=== PATIENT | male | born 1985 | race Caucasian/White ===

== ENCOUNTER 2018-02-01 02:43 | Emergency (ER) | payer MEDICAID ==
--- NOTE | 2018-02-01 02:55 | ER Report ---
History and Physical Time Seen By MD: 02:55 Hx. of Stated Complaint: PT DRANK ALCOHOL AND THEN TOOK SEROQUEL. HE DOES NOT FEEL RIGHT HPI/ROS CHIEF COMPLAINT: dizzy, not feeling right HISTORY OF PRESENT ILLNESS: This is a 32 year old male. He says he does not feel right. Dizziness and grogginess. He takes 200mg of Seroquel at bedtime. Drank a couple glasses of champagne tonight and took his regular dose. Was not feeling sleepy, so after another hour, he took a second Seroquel. He has never done this prior to tonight. Now very dizzy and groggy. Never felt this way with the medicine previously. This is a first pill from a new prescription and he thinks that someone may have tampered with the prescription, although no one else has had it since picking it up. He denies chest pain or shortness of breath. No headache. He is very tired. No musculoskeletal pain. No nausea or vomiting. Allergies: Coded Allergies: No Known Drug Allergies (Unverified , 02/01/18) Home Meds Reported Medications Quetiapine Fumarate (SEROQUEL) 200 Mg Tablet, 200 MG PO HS 02/01/18 Reviewed Nurses Notes: Yes Hx Alcohol Use: Yes Constitutional Vital Sign - Last 24 Hours 02/01/18 02/01/18 02:48 04:00 Temp 98.0 Pulse 113 93 Resp 16 B/P (MAP) 132/92 106/77 (87) Pulse Ox 94 96 O2 Delivery Room Air Room Air Intake and Output 01/31/18 01/31/18 02/01/18 15:00 23:00 07:00 Intake Total 1000 ml Balance 1000 ml Physical Exam General Appearance: The patient is alert, anxious. Eyes: Pupils equal and round no injection. ENT: Normal oral mucosa. Moist mucous membranes. Normal posterior oropharynx. Tympanic membranes are normal. Neck: Neck is supple and non tender. Respiratory: Chest is non tender, lungs are clear to auscultation. Cardiac: regular rate and rhythm Gastrointestinal: Abdomen is soft and non tender, no masses, bowel sounds normal. Musculoskeletal: Extremities have full range of motion. Neuro: Alert and oriented x3. No focal deficits. Skin: No rashes or lesions. DIFFERENTIAL DIAGNOSIS: After history and physical exam differential diagnosis was considered for dizziness and grogginess after taking an extra Seroquel dose along with some alcohol tonight. Medical Decision Making Data Points Result Diagram: 02/01/185 02/01/185 Laboratory Hematology Test 02/01/18 02:48 02/01/18 03:15 Urine Color Yellow Urine Clarity Clear Urine pH 5.0 pH (4.8-9.5) Urine Specific Means 1.026 Urine Protein Negative mg/dL (NEGATIVE) Urine Glucose (UA) Negative mg/dL (NEGATIVE) Urine Ketones Trace mg/dL (NEGATIVE) Urine Blood Negative (NEGATIVE) Urine Nitrite Negative (NEGATIVE) Urine Bilirubin Negative (NEGATIVE) Urine Urobilinogen 2.0 mg/dL (0.2-1.9) Urine Leukocyte Esterase Negative (NEGATIVE) Urine RBC 1 /HPF (0-2/HPF) Urine WBC 5 /HPF (0-5/HPF) Urine Squamous Epithelial Cells Few /LPF (</=FEW) Urine Bacteria Few /HPF (NONE-FEW) Urine Hyaline Casts Few /LPF (NONE-FEW) Urine Mucus Few /HPF (NONE-FEW) Urine Opiates Screen Negative Urine Barbiturates Screen Negative Ur Tricyclic Antidepressants Screen Negative Urine Phencyclidine Screen Negative Urine Amphetamines Screen Negative Urine Benzodiazepines Screen Negative Urine Cocaine Screen Negative Urine Cannabinoids Screen Negative Red Blood Count 6.08 M/uL (4.00-5.60) Mean Corpuscular Volume 89.9 fL (80.0-96.0) Mean Corpuscular Hemoglobin 31.2 pg (26.0-33.0) Mean Corpuscular Hemoglobin Concent 34.7 g/dL (32.0-36.0) Red Cell Distribution Width 12.9 % (11.5-14.5) Mean Platelet Volume 10.7 fL (7.2-11.1) Neutrophils (%) (Auto) 65.0 % (39.4-72.5) Lymphocytes (%) (Auto) 21.1 % (17.6-49.6) Monocytes (%) (Auto) 6.4 % (4.1-12.4) Eosinophils (%) (Auto) 7.0 % (0.4-6.7) Basophils (%) (Auto) 0.5 % (0.3-1.4) Nucleated RBC Relative Count (auto) 0.0 /100WBC Neutrophils # (Auto) 6.0 K/uL (2.0-7.4) Lymphocytes # (Auto) 1.9 K/uL (1.3-3.6) Monocytes # (Auto) 0.6 K/uL (0.3-1.0) Eosinophils # (Auto) 0.6 K/uL (0.0-0.5) Basophils # (Auto) 0.1 K/uL (0.0-0.1) Nucleated RBC Absolute Count (auto) 0.00 K/uL Sodium Level 141 mmol/L (137-145) Potassium Level 3.4 mmol/L (3.5-5.0) Chloride Level 105 mmol/L (98-107) Carbon Dioxide Level 23 mmol/L (22-30) Blood Urea Nitrogen 10 mg/dl (9-21) Creatinine 0.80 mg/dl (0.66-1.25) Glomerular Filtration Rate Calc > 60.0 Random Glucose 126 mg/dl (75-110) Calcium Level 9.5 mg/dl (8.4-10.2) Total Bilirubin 0.5 mg/dl (0.2-1.3) Aspartate Amino Transf (AST/SGOT) 16 U/L (0-35) Alanine Aminotransferase (ALT/SGPT) 48 U/L (0-56) Alkaline Phosphatase 67 U/L (0-126) Total Protein 7.0 g/dl (6.3-8.2) Albumin 4.2 g/dl (3.5-5.0) Salicylates Level < 10 mg/L Salicylate Last Dose Date unk Acetaminophen Level < 10 ug/ml Serum Alcohol < 10 mg/dl Chemistry Test 02/01/18 02:48 02/01/18 03:15 Urine Color Yellow Urine Clarity Clear Urine pH 5.0 pH (4.8-9.5) Urine Specific Means 1.026 Urine Protein Negative mg/dL (NEGATIVE) Urine Glucose (UA) Negative mg/dL (NEGATIVE) Urine Ketones Trace mg/dL (NEGATIVE) Urine Blood Negative (NEGATIVE) Urine Nitrite Negative (NEGATIVE) Urine Bilirubin Negative (NEGATIVE) Urine Urobilinogen 2.0 mg/dL (0.2-1.9) Urine Leukocyte Esterase Negative (NEGATIVE) Urine RBC 1 /HPF (0-2/HPF) Urine WBC 5 /HPF (0-5/HPF) Urine Squamous Epithelial Cells Few /LPF (</=FEW) Urine Bacteria Few /HPF (NONE-FEW) Urine Hyaline Casts Few /LPF (NONE-FEW) Urine Mucus Few /HPF (NONE-FEW) Urine Opiates Screen Negative Urine Barbiturates Screen Negative Ur Tricyclic Antidepressants Screen Negative Urine Phencyclidine Screen Negative Urine Amphetamines Screen Negative Urine Benzodiazepines Screen Negative Urine Cocaine Screen Negative Urine Cannabinoids Screen Negative White Blood Count 9.2 k/uL (4.5-11.0) Red Blood Count 6.08 M/uL (4.00-5.60) Hemoglobin 19.0 g/dL (14.0-18.0) Hematocrit 54.6 % (42.0-52.0) Mean Corpuscular Volume 89.9 fL (80.0-96.0) Mean Corpuscular Hemoglobin 31.2 pg (26.0-33.0) Mean Corpuscular Hemoglobin Concent 34.7 g/dL (32.0-36.0) Red Cell Distribution Width 12.9 % (11.5-14.5) Platelet Count 170 K/uL (150-450) Mean Platelet Volume 10.7 fL (7.2-11.1) Neutrophils (%) (Auto) 65.0 % (39.4-72.5) Lymphocytes (%) (Auto) 21.1 % (17.6-49.6) Monocytes (%) (Auto) 6.4 % (4.1-12.4) Eosinophils (%) (Auto) 7.0 % (0.4-6.7) Basophils (%) (Auto) 0.5 % (0.3-1.4) Nucleated RBC Relative Count (auto) 0.0 /100WBC Neutrophils # (Auto) 6.0 K/uL (2.0-7.4) Lymphocytes # (Auto) 1.9 K/uL (1.3-3.6) Monocytes # (Auto) 0.6 K/uL (0.3-1.0) Eosinophils # (Auto) 0.6 K/uL (0.0-0.5) Basophils # (Auto) 0.1 K/uL (0.0-0.1) Nucleated RBC Absolute Count (auto) 0.00 K/uL Glomerular Filtration Rate Calc > 60.0 Calcium Level 9.5 mg/dl (8.4-10.2) Total Bilirubin 0.5 mg/dl (0.2-1.3) Aspartate Amino Transf (AST/SGOT) 16 U/L (0-35) Alanine Aminotransferase (ALT/SGPT) 48 U/L (0-56) Alkaline Phosphatase 67 U/L (0-126) Total Protein 7.0 g/dl (6.3-8.2) Albumin 4.2 g/dl (3.5-5.0) Salicylates Level < 10 mg/L Salicylate Last Dose Date unk Acetaminophen Level < 10 ug/ml Serum Alcohol < 10 mg/dl Toxicology Test 02/01/18 02:48 02/01/18 03:15 Urine Opiates Screen Negative Urine Barbiturates Screen Negative Ur Tricyclic Antidepressants Screen Negative Urine Phencyclidine Screen Negative Urine Amphetamines Screen Negative Urine Benzodiazepines Screen Negative Urine Cocaine Screen Negative Urine Cannabinoids Screen Negative Salicylates Level < 10 mg/L Salicylate Last Dose Date unk Acetaminophen Level < 10 ug/ml Serum Alcohol < 10 mg/dl Urinalysis Test 02/01/18 02:48 Urine Color Yellow Urine Clarity Clear Urine pH 5.0 pH (4.8-9.5) Urine Specific Means 1.026 Urine Protein Negative mg/dL (NEGATIVE) Urine Glucose (UA) Negative mg/dL (NEGATIVE) Urine Ketones Trace mg/dL (NEGATIVE) Urine Blood Negative (NEGATIVE) Urine Nitrite Negative (NEGATIVE) Urine Bilirubin Negative (NEGATIVE) Urine Urobilinogen 2.0 mg/dL (0.2-1.9) Urine Leukocyte Esterase Negative (NEGATIVE) Urine RBC 1 /HPF (0-2/HPF) Urine WBC 5 /HPF (0-5/HPF) Urine Squamous Epithelial Cells Few /LPF (</=FEW) Urine Bacteria Few /HPF (NONE-FEW) Urine Hyaline Casts Few /LPF (NONE-FEW) Urine Mucus Few /HPF (NONE-FEW) ED Course/Re-evaluation Clinical Indication for ER IV: Hydration, IV Access ED Course Labs are unremarkable. Reviewed this with the patient. See instructions below. Decision to Disposition Date: Feb 01, 2018 Decision to Disposition Time: 04:03 Depart Departure Latest Vital Signs Vital Signs Date Time Temp Pulse Resp B/P (MAP) Pulse Ox O2 Delivery O2 Flow Rate FiO2 02/01/18 04:00 93 106/77 (87) 96 Room Air 02/01/18 02:48 98.0 16 Impression: Primary Impression: Dizziness Condition: Improved Disposition: HOME OR SELF-CARE Patient Instructions: Dizziness (ED) Additional Instructions: We think the feeling you had of dizziness and not feeling right was a combination of factors including the alcohol combined by a larger dose of Seroquel than what you normally take. If you are worried about the Seroquel being tampered with, you can talk to the pharmacy or possibly with law enforcement. At this time, labs are normal and no other substances are found in your system b ased on the limited labs we have available. We recommend returning home and resting today and increasing fluid intake. ANNA CARDOZA MD Feb 01, 2018 02:55
[2018-02-01] MEDS ORDERED: QUET200T29 PO (03:02)
[2018-02-01 03:24] LABS: PLATELET COUNT, AUTOMATED 170 K/uL (150-450)
[2018-02-01] MEDS ORDERED: NS(*) 0.9% 1000 ML BAG 1,000 ML IV ONE (03:24)
[2018-02-01 04:00] VITALS: BP 106/77
== END 2018-02-01 04:10 | disposition home or self-care (01) ==
LOC: ER 03:00
DX: R42 Dizziness and giddiness (principal)
CPT/HCPCS: 80305; 81001; 85025; 96360; 99283; G0480; J7030; 80320; 80329; 82040; 82247; 82310; 82374; 82435; 82565; 82947; 84075; 84132; 84155; 84295; 84450; 84460; 84520

== ENCOUNTER 2018-02-05 08:29 | Emergency (ER) | payer MEDICAID ==
[~2018-02-05 08:29] MED LIST changes: -CHOL10005 PO; -MULT-1379 PO; -NICO-219 BC; -OMEG1CAP35 PO; -QUET100T29 PO
--- NOTE | 2018-02-05 08:44 | ER Report ---
History and Physical Time Seen By MD: 08:39 Hx. of Stated Complaint: PATIENT REPORTS THAT HE BELIEVES SOMEONE IS POISONING HIS CIGARETTES HPI/ROS CHIEF COMPLAINT: Palpitations, shortness of breath, paranoia HISTORY OF PRESENT ILLNESS: Patient is a 32-year-old male who is brought in by ambulance for evaluation of palpitations and shortness of breath. Patient is concerned that his cigarettes may have been laced with a "poison". When asked why he thinks that he states that he was in [place] a few days ago and was sary ing his cigarettes with other people and so he became concerned that his symptoms might be related to some type of poison on the cigarettes. Patient admits to having paranoid thoughts from time to time he's also paranoid with regard to his medication use. He states that "he is very careful to take his medications at the same time and the correct dose". Patient also made the comment to nursing staff that "if someone was trying to poison cigarettes of cyanide the FBI would be aware that correct" REVIEW OF SYSTEMS: Constitutional: No fever, no chills. Eyes: No discharge. ENT: No sore throat. Cardiovascular: Chest pain and palpitations Respiratory: Shortness of breath Gastrointestinal: No abdominal pain, no vomiting. Genitourinary: No hematuria. Musculoskeletal: No back pain. Skin: No rashes. Neurological: No headache. Psychiatric: No suicidal or homicidal ideation Allergies: Coded Allergies: No Known Drug Allergies (Unverified , 02/06/18) Home Meds Reported Medications Quetiapine Fumarate (SEROQUEL) 200 Mg Tablet, 200 MG PO HS 02/01/18 Past Medical/Surgical History Anxiety Hx Alcohol Use: Yes Constitutional Vital Sign - Last 24 Hours 02/05/18 02/05/18 08:33 09:53 Temp 98.0 Pulse 100 80 Resp 24 20 B/P (MAP) 135/93 109/80 (90) Pulse Ox 92 91 O2 Delivery Room Air Room Air Physical Exam General/Constitutional: Patient is awake, alert, nontoxic and in no acute respiratory distress. Head: Normocephalic and atraumatic. Eyes: Conjunctival clear, Pupils are normal size and equal and reactive to light. Sclera are clear and anicteric. Ears:External canals are clear. Tympanic membranes are clear with normal landma rks and light reflex. Nares: No rhinorrhea or bleeding. Turbinates are pink and moist. Oropharyngeal: Mucous membranes are moist. There is no pharyngeal erythema or exudate. There are no palatal petechiae. Uvula is midline and symmetrical. Neck: Supple, no adenopathy. Cardiovascular: Heart is regular rate and rhythm without audible murmurs, rubs or gallops. Pulmonary: Lungs are clear to auscultation bilaterally. There are no wheezes, rales, or rhonchi. Chest rise is symmetrical Abdomen: Soft, nontender, no guarding or peritoneal signs. Extremities: No gross deformities, No peripheral cyanosis. Able to move all 4 extremities. Neuro: Alert and oriented X3, Cranial nerves 2 thru 12 are intact and symmetrical. Patient has normal gait. Skin: No rashes, skin is warm dry and well perfused. Psych: Patient admits to feeling anxious and feeling somewhat paranoid. He is concerned that somebody may have "laced his cigarettes with a poison". He denies hearing any auditory hallucinations. He denies visual hallucinations. He denies suicidal thoughts or homicidal thoughts. Medical Decision Making Data Points Result Diagram: 02/05/18 0857 02/05/18 0857 Laboratory Hematology Test 02/05/18 08:57 Red Blood Count 5.98 M/uL (4.00-5.60) Mean Corpuscular Volume 90.2 fL (80.0-96.0) Mean Corpuscular Hemoglobin 31.1 pg (26.0-33.0) Mean Corpuscular Hemoglobin Concent 34.5 g/dL (32.0-36.0) Red Cell Distribution Width 13.1 % (11.5-14.5) Mean Platelet Volume 11.3 fL (7.2-11.1) Neutrophils (%) (Auto) 76.2 % (39.4-72.5) Lymphocytes (%) (Auto) 14.9 % (17.6-49.6) Monocytes (%) (Auto) 4.1 % (4.1-12.4) Eosinophils (%) (Auto) 4.1 % (0.4-6.7) Basophils (%) (Auto) 0.7 % (0.3-1.4) Nucleated RBC Relative Count (auto) 0.1 /100WBC Neutrophils # (Auto) 9.0 K/uL (2.0-7.4) Lymphocytes # (Auto) 1.8 K/uL (1.3-3.6) Monocytes # (Auto) 0.5 K/uL (0.3-1.0) Eosinophils # (Auto) 0.5 K/uL (0.0-0.5) Basophils # (Auto) 0.1 K/uL (0.0-0.1) Nucleated RBC Absolute Count (auto) 0.01 K/uL Sodium Level 141 mmol/L (137-145) Potassium Level 3.2 mmol/L (3.5-5.0) Chloride Level 107 mmol/L (98-107) Carbon Dioxide Level 26 mmol/L (22-30) Blood Urea Nitrogen 10 mg/dl (9-21) Creatinine 1.00 mg/dl (0.66-1.25) Glomerular Filtration Rate Calc > 60.0 Random Glucose 149 mg/dl (75-110) Calcium Level 9.3 mg/dl (8.4-10.2) Total Bilirubin 0.6 mg/dl (0.2-1.3) Aspartate Amino Transf (AST/SGOT) 23 U/L (0-35) Alanine Aminotransferase (ALT/SGPT) 39 U/L (0-56) Alkaline Phosphatase 64 U/L (0-126) Troponin I < 0.012 ng/ml Total Protein 7.2 g/dl (6.3-8.2) Albumin 4.1 g/dl (3.5-5.0) Chemistry Test 02/05/18 08:57 White Blood Count 11.8 k/uL (4.5-11.0) Red Blood Count 5.98 M/uL (4.00-5.60) Hemoglobin 18.6 g/dL (14.0-18.0) Hematocrit 53.9 % (42.0-52.0) Mean Corpuscular Volume 90.2 fL (80.0-96.0) Mean Corpuscular Hemoglobin 31.1 pg (26.0-33.0) Mean Corpuscular Hemoglobin Concent 34.5 g/dL (32.0-36.0) Red Cell Distribution Width 13.1 % (11.5-14.5) Platelet Count 178 K/uL (150-450) Mean Platelet Volume 11.3 fL (7.2-11.1) Neutrophils (%) (Auto) 76.2 % (39.4-72.5) Lymphocytes (%) (Auto) 14.9 % (17.6-49.6) Monocytes (%) (Auto) 4.1 % (4.1-12.4) Eosinophils (%) (Auto) 4.1 % (0.4-6.7) Basophils (%) (Auto) 0.7 % (0.3-1.4) Nucleated RBC Relative Count (auto) 0.1 /100WBC Neutrophils # (Auto) 9.0 K/uL (2.0-7.4) Lymphocytes # (Auto) 1.8 K/uL (1.3-3.6) Monocytes # (Auto) 0.5 K/uL (0.3-1.0) Eosinophils # (Auto) 0.5 K/uL (0.0-0.5) Basophils # (Auto) 0.1 K/uL (0.0-0.1) Nucleated RBC Absolute Count (auto) 0.01 K/uL Glomerular Filtration Rate Calc > 60.0 Calcium Level 9.3 mg/dl (8.4-10.2) Total Bilirubin 0.6 mg/dl (0.2-1.3) Aspartate Amino Transf (AST/SGOT) 23 U/L (0-35) Alanine Aminotransferase (ALT/SGPT) 39 U/L (0-56) Alkaline Phosphatase 64 U/L (0-126) Troponin I < 0.012 ng/ml Total Protein 7.2 g/dl (6.3-8.2) Albumin 4.1 g/dl (3.5-5.0) EKG/Imaging EKG Interpretation 02/05/2018 9:39:00 am EKG shows normal sinus rhythm with ventricular rate of [address] segment or T-wave abnormalities noted Monitor Interpretation: Normal Sinus Rhythm Imaging FACILITY: [facility] PATIENT NAME: Izaiah Fishman : 1985 MR: [id number] V: [id number] EXAM DATE: [id number] ORDERING PHYSICIAN: LIBORIO GARCIA TECHNOLOGIST: Location: [facility] - [place] Patient: Izaiah Fishman : 1985 Visit/Account:[id number] Date of Sevice: 02/05/2018 2 VIEWS CHEST INDICATION: Short of breath. Difficulty catching breath. COMPARISON: None available FINDINGS: The lungs are clear. No effusion or pneumothorax is seen. Heart size and mediastinal contours are normal. Colonic gas noted within the upper abdomen most pronounced just below the left hemidiaphragm. IMPRESSION: 1. No radiographic evidence of active disease. Report Dictated By: Tamir Motta at 02/05/2018 9:26 AM Report E-Signed By: Tamir Motta at 02/05/2018 9:28 AM WSN:[id number] ED Course/Re-evaluation ED Course 02/05/2018 9:07:24 am and at this time will be cardiac workup including blood work EKG and chest x-ray. The patient does seem to have some paranoid thoughts. The patient is not suicidal or homicidal and does not appear to be an immediate danger to himself or the Public large. Decision to Disposition Date: Feb 05, 2018 Decision to Disposition Time: 09:40 Depart Departure Latest Vital Signs Vital Signs Date Time Temp Pulse Resp B/P (MAP) Pulse Ox O2 Delivery O2 Flow Rate FiO2 02/05/18 09:53 80 20 109/80 (90) 91 Room Air 02/05/18 08:33 98.0 Impression: Primary Impression: Non-cardiac chest pain Additional Impression: Anxiety Condition: Improved Disposition: HOME OR SELF-CARE Patient Instructions: Anxiety (ED), Noncardiac Chest Pain (ED) Problem Qualifiers LIBORIO GARCIA MD Feb 05, 2018 08:44
[2018-02-05] MEDS ORDERED: LORazepam 2 MG/ML VIAL IVP ONE (08:45)
--- NOTE | 2018-02-05 08:54 | EKG ---
FACILITY: [facility] - [place] PATIENT NAME: ELAINA WAGNER : [id number] MR: [id number] V: [id number] EXAM DATE: ORDERING PHYSICIAN: LIBORIO GARCIA TECHNOLOGIST: BERTIN Miranda Reason : CP Blood Pressure : / mmHG Vent. Rate : 092 BPM Atrial Rate : 092 BPM P-R Int : 154 ms QRS Dur : 104 ms QT Int : 364 ms P-R-T Axes : 067 035 036 degrees QTc Int : 450 ms Normal sinus rhythm Normal ECG No previous ECGs available Confirmed by CHIQUIS GUPTA ([id number]) on 02/05/2018 9:36:07 PM Referred By: RADHA Confirmed By:CHIQUIS GUPTA
[2018-02-05 09:09] LABS: PLATELET COUNT, AUTOMATED 178 K/uL (150-450)
--- NOTE | 2018-02-05 09:32 | RADIOLOGY IMAGING REPORT ---
FACILITY: [facility] - [place] PATIENT NAME: Izaiah Fishman : 1985 MR: [id number] V: [id number] EXAM DATE: ORDERING PHYSICIAN: LIBORIO GARCIA TECHNOLOGIST: Location: [facility] - [place] Patient: Izaiah Fishman : 1985 Visit/Account:[id number] Date of Sevice: 02/05/2018 2 VIEWS CHEST INDICATION: Short of breath. Difficulty catching breath. COMPARISON: None available FINDINGS: The lungs are clear. No effusion or pneumothorax is seen. Heart size and mediastinal contours are nor mal. Colonic gas noted within the upper abdomen most pronounced just below the left hemidiaphragm. IMPRESSION: 1. No radiographic evidence of active disease. Report Dictated By: Tamir Motta at 02/05/2018 9:26 AM Report E-Signed By: Tamir Motta at 02/05/2018 9:28 AM WSN:[id number]
[2018-02-05 09:53] VITALS: BP 109/80
== END 2018-02-05 09:44 | disposition home or self-care (01) ==
LOC: ER 09:33
DX: R07.89 Other chest pain (principal); F41.9 Anxiety disorder, unspecified; F17.210 Nicotine dependence, cigarettes, uncomplicated
CPT/HCPCS: 71046; 84484; 85025; 93005; 96374; 99283; J2060; 82040; 82247; 82310; 82374; 82435; 82565; 82947; 84075; 84132; 84155; 84295; 84450; 84460; 84520

== ENCOUNTER → 2018-02-05 | Outpatient (CLI) | payer MEDICAID ==
[~2018-02-05] MED LIST: CHOL10005 PO; MULT-1379 PO; NICO-219 BC; OMEG1CAP35 PO; QUET100T29 PO; QUET200T29 PO
== END ==
LOC: AMB 08:13
PROVIDERS: ATTEND Nurse Practitioner
DX: F22 Delusional disorders (principal); F41.1 Generalized anxiety disorder; Z72.0 Tobacco use
CPT/HCPCS: A0425; A0427

== ENCOUNTER 2018-02-06 07:10 | Emergency (ER) | payer MEDICAID ==
[~2018-02-06 07:10] MED LIST changes: -CHOL10005 PO; -LORA-1458 PO; -MULT-1379 PO; -NICO-219 BC; -OMEG1CAP35 PO; -QUET100T29 PO
--- NOTE | 2018-02-06 07:53 | EKG ---
FACILITY: [facility] PATIENT NAME: ELAINA WAGNER : [id number] MR: [id number] V: [id number] EXAM DATE: ORDERING PHYSICIAN: LIBORIO GARCIA TECHNOLOGIST: BERTIN Miranda Reason : PALPITATIONS Blood Pressure : / mmHG Vent. Rate : 078 BPM Atrial Rate : 078 BPM P-R Int : 150 ms QRS Dur : 110 ms QT Int : 382 ms P-R-T Axes : 054 028 031 degrees QTc Int : 435 ms Sinus rhythm Nonspecific interventricular conduction delay No acute appearing findings Confirmed by ORALIA LAND ([id number]) on 02/06/2018 3:52:53 PM Referred By: RADHA Confirmed By:ORALIA LAND
[2018-02-06 08:00] VITALS: BP 139/108
--- NOTE | 2018-02-06 08:05 | ER Report ---
History and Physical Time Seen By MD: 08:04 Hx. of Stated Complaint: pt states he has psychosis. States has not taken his seroquel as he cannot sleep with it . Appears rather anxious. HPI/ROS CHIEF COMPLAINT: Anxiety, difficulty sleeping, history of psychosis HISTORY OF PRESENT ILLNESS: Patient was seen approximately 24 hours ago for similar type complaints. Was diagnosed with noncardiac chest pain after workup in the emergency department. Patient did improve on dose of Ativan while in the emergency department. Patient was discharged home. He had no suicidal or homicidal ideation at that time. Apparently he's been having increasing anxiety so he returns to emergency department for reevaluation. Patient does state this time he's been having fleeting thoughts of suicide no active plan. Mostly says she's having difficulty sleeping at night unable to get to sleep or maintain sleep. Patient does live by himself. REVIEW OF SYSTEMS: Constitutional: No fever, no chills. Eyes: No discharge. ENT: No sore throat. Cardiovascular: No chest pain, no palpitations. Respiratory: No cough, no shortness of breath. Gastrointestinal: No abdominal pain, no vomiting. Genitourinary: No hematuria. Musculoskeletal: No back pain. Skin: No rashes. Neurological: No headache. Psychiatric: Anxiety, fleeting thoughts of suicide Allergies: Coded Allergies: No Known Drug Allergies (Unverified , 02/06/18) Home Meds Reported Medications Quetiapine Fumarate (SEROQUEL) 200 Mg Tablet, 200 MG PO HS 02/01/18 Past Medical/Surgical History History of psychosis and anxiety Hx Substance Use Disorder: No Hx Alcohol Use: Yes Constitutional Vital Sign - Last 24 Hours 02/06/18 02/06/18 02/06/18 02/06/18 07:10 07:10 07:30 07:40 Temp 98.4 Pulse 80 87 83 Resp 20 B/P (MAP) 129/96 (107) 129/96 123/89 (100) Pulse Ox 97 94 95 O2 Delivery Room Air 02/06/18 02/06/18 08:00 08:10 Pulse 81 B/P (MAP) 139/108 (118) Pulse Ox 92 Physical Exam General/Constitutional: Patient is awake, alert, nontoxic and in no acute respiratory distress. Head: Normocephalic and atraumatic. Eyes: Conjunctival clear, Pupils are equal and reactive to light. Extraocular muscles are intact and symmetrical. Sclera are clear and anicteric. Ears:External canals are clear. Tympanic membranes are clear with normal landmarks and light reflex. Nares: No rhinorrhea or bleeding. Turbinates are pink and moist. Oropharyngeal: Mucous membranes are moist. There is no pharyngeal erythema or exudate. There are no palatal petechiae. Uvula is midline and symmetrical. Neck: Supple, no adenopathy. Cardiovascular: Heart is regular rate and rhythm without audible murmurs, rubs or gallops. Pulmonary: Lungs are clear to auscultation bilaterally. There are no wheezes, rales, or rhonchi. Chest rise is symmetrical Abdomen: Soft, nontender, no guarding or peritoneal signs. Extremities: No gross deformities, No peripheral cyanosis. Able to move all 4 extremities. Neuro: Alert and oriented X3, Cranial nerves 2 thru 12 are intact and symmetrical. Patient has normal gait. Skin: No rashes, skin is warm dry and well perfused. Psychiatric: Fleeting thoughts of suicide, very poor eye contact flat affect. Patient is cooperative. Thought process seems logical and goal-directed. Patient does not seem to be responding to any internal stimuli. Medical Decision Making Data Points Result Diagram: 02/06/18 0802 02/06/18 0802 Laboratory Hematology Test 02/06/18 08:02 Red Blood Count 5.65 M/uL (4.00-5.60) Mean Corpuscular Volume 90.0 fL (80.0-96.0) Mean Corpuscular Hemoglobin 31.2 pg (26.0-33.0) Mean Corpuscular Hemoglobin Concent 34.7 g/dL (32.0-36.0) Red Cell Distribution Width 13.1 % (11.5-14.5) Mean Platelet Volume 10.4 fL (7.2-11.1) Neutrophils (%) (Auto) 66.6 % (39.4-72.5) Lymphocytes (%) (Auto) 17.5 % (17.6-49.6) Monocytes (%) (Auto) 8.0 % (4.1-12.4) Eosinophils (%) (Auto) 7.4 % (0.4-6.7) Basophils (%) (Auto) 0.5 % (0.3-1.4) Nucleated RBC Relative Count (auto) 0.1 /100WBC Neutrophils # (Auto) 5.5 K/uL (2.0-7.4) Lymphocytes # (Auto) 1.4 K/uL (1.3-3.6) Monocytes # (Auto) 0.7 K/uL (0.3-1.0) Eosinophils # (Auto) 0.6 K/uL (0.0-0.5) Basophils # (Auto) 0.0 K/uL (0.0-0.1) Nucleated RBC Absolute Count (auto) 0.00 K/uL Sodium Level 140 mmol/L (137-145) Potassium Level 3.8 mmol/L (3.5-5.0) Chloride Level 106 mmol/L (98-107) Carbon Dioxide Level 25 mmol/L (22-30) Blood Urea Nitrogen 9 mg/dl (9-21) Creatinine 0.80 mg/dl (0.66-1.25) Glomerular Filtration Rate Calc > 60.0 Random Glucose 102 mg/dl (75-110) Calcium Level 9.2 mg/dl (8.4-10.2) Magnesium Level 1.9 mg/dl (1.7-2.2) Total Bilirubin 0.7 mg/dl (0.2-1.3) Aspartate Amino Transf (AST/SGOT) 18 U/L (0-35) Alanine Aminotransferase (ALT/SGPT) 39 U/L (0-56) Alkaline Phosphatase 59 U/L (0-126) Troponin I < 0.012 ng/ml Total Protein 7.1 g/dl (6.3-8.2) Albumin 4.0 g/dl (3.5-5.0) Salicylates Level < 10 mg/L Salicylate Last Dose Date unk Acetaminophen Level < 10 ug/ml Serum Alcohol < 10 mg/dl Chemistry Test 02/06/18 08:02 White Blood Count 8.3 k/uL (4.5-11.0) Red Blood Count 5.65 M/uL (4.00-5.60) Hemoglobin 17.7 g/dL (14.0-18.0) Hematocrit 50.9 % (42.0-52.0) Mean Corpuscular Volume 90.0 fL (80.0-96.0) Mean Corpuscular Hemoglobin 31.2 pg (26.0-33.0) Mean Corpuscular Hemoglobin Concent 34.7 g/dL (32.0-36.0) Red Cell Distribution Width 13.1 % (11.5-14.5) Platelet Count 169 K/uL (150-450) Mean Platelet Volume 10.4 fL (7.2-11.1) Neutrophils (%) (Auto) 66.6 % (39.4-72.5) Lymphocytes (%) (Auto) 17.5 % (17.6-49.6) Monocytes (%) (Auto) 8.0 % (4.1-12.4) Eosinophils (%) (Auto) 7.4 % (0.4-6.7) Basophils (%) (Auto) 0.5 % (0.3-1.4) Nucleated RBC Relative Count (auto) 0.1 /100WBC Neutrophils # (Auto) 5.5 K/uL (2.0-7.4) Lymphocytes # (Auto) 1.4 K/uL (1.3-3.6) Monocytes # (Auto) 0.7 K/uL (0.3-1.0) Eosinophils # (Auto) 0.6 K/uL (0.0-0.5) Basophils # (Auto) 0.0 K/uL (0.0-0.1) Nucleated RBC Absolute Count (auto) 0.00 K/uL Glomerular Filtration Rate Calc > 60.0 Calcium Level 9.2 mg/dl (8.4-10.2) Magnesium Level 1.9 mg/dl (1.7-2.2) Total Bilirubin 0.7 mg/dl (0.2-1.3) Aspartate Amino Transf (AST/SGOT) 18 U/L (0-35) Alanine Aminotransferase (ALT/SGPT) 39 U/L (0-56) Alkaline Phosphatase 59 U/L (0-126) Troponin I < 0.012 ng/ml Total Protein 7.1 g/dl (6.3-8.2) Albumin 4.0 g/dl (3.5-5.0) Salicylates Level < 10 mg/L Salicylate Last Dose Date unk Acetaminophen Level < 10 ug/ml Serum Alcohol < 10 mg/dl Toxicology Test 02/06/18 08:02 Salicylates Level < 10 mg/L Salicylate Last Dose Date unk Acetaminophen Level < 10 ug/ml Serum Alcohol < 10 mg/dl EKG/Imaging EKG Interpretation EKG shows normal sinus rhythm with a ventricular beat of 78 bpm unchanged from the EKG approximately 24 hours ago. ED Course/Re-evaluation ED Course Plan at this time will be medical screening evaluation. I will also have behavioral medicine come down to an evaluation. 02/06/2018 8:43:17 am patient seen by behavioral medicine at [facility]. Patient does have an appointment with his psychiatrist today in [facility]. He was given resources in the [facility]. Patient felt safe for disposition to discharge home at this time. Patient given further additional con tact information if he requires further assistance. Decision to Disposition Date: Feb 06, 2018 Decision to Disposition Time: 08:43 Depart Departure Latest Vital Signs Vital Signs Date Time Temp Pulse Resp B/P (MAP) Pulse Ox O2 Delivery O2 Flow Rate FiO2 02/06/18 08:10 81 92 02/06/18 08:00 139/108 (118) 02/06/18 07:10 98.4 20 Room Air Impression: Primary Impression: Insomnia Condition: Improved Disposition: HOME OR SELF-CARE Patient Instructions: Insomnia (ED) Additional Instructions: Keep your appointment today with your psychiatrist in [place] to get your medications adjusted. Return to the emergency department if you have thoughts of self-harm or hurting others. Problem Qualifiers Primary Impression: Insomnia Insomnia type: unspecified Qualified Codes: G47.00 - Insomnia, unspecified LIBORIO GARCIA MD Feb 06, 2018 08:05
[2018-02-06 08:15] LABS: PLATELET COUNT, AUTOMATED 169 K/uL (150-450)
== END 2018-02-06 09:15 | disposition home or self-care (01) ==
LOC: ER 08:05
DX: G47.00 Insomnia, unspecified (principal); R45.851 Suicidal ideations; R00.2 Palpitations
CPT/HCPCS: 36415; 83735; 84443; 84484; 85025; 93005; 99283; G0480; 80320; 80329; 82040; 82247; 82310; 82374; 82435; 82565; 82947; 84075; 84132; 84155; 84295; 84450; 84460; 84520

== ENCOUNTER 2018-02-06 21:56 | Emergency (ER) | payer MEDICAID ==
--- NOTE | 2018-02-06 22:00 | ER Report ---
History and Physical Time Seen By MD: 22:00 HPI/SAMARA CHIEF COMPLAINT: Not feeling right HISTORY OF PRESENT ILLNESS: 32-year-old male with sounds like a history of schizophrenia. On Seroquel. He's been on medication for 3 years. Over the last 2 days. He is coming to the ER for 3 visits. This is his 3rd visit. The previous 2 he was complaining of erratic heartbeat and had some paranoid behavior. He states that he stop smoking today because he thought somebody put something in his cigarettes. Last weekend he was seen here after having a couple glasses of champagne and taking 2 doses of his Seroquel. He denies current suicidal ideation, however he admits occasional fleeting thoughts of suicidal ideation but has no actual plan. Patient has a previous behavioral health admission down in [place]. He lives alone so he starts to ruminate on his thoughts and becomes quite anxious about being home alone. He denies current drug, alcohol use. Patient hasn't slept in 3 days. REVIEW OF SYSTEMS: Respiratory: No cough, no dyspnea. Cardiovascular: No chest pain, no palpitations. Gastrointestinal: No vomiting, no abdominal pain. Musculoskeletal: No back pain. Allergies: Coded Allergies: No Known Drug Allergies (Unverified , 02/06/18) Home Meds Reported Medications Quetiapine Fumarate (SEROQUEL) 200 Mg Tablet, 200 MG PO HS 02/01/18 Reviewed Nurses Notes: Yes Old Medical Records Reviewed: Yes Hx Substance Use Disorder: No Hx Alcohol Use: Yes Constitutional Vital Sign - Last 24 Hours 02/06/18 02/06/18 02/06/18 02/06/18 21:59 21:59 22:30 22:41 Temp 98.1 Pulse 87 Resp 20 B/P (MAP) 112/76 (88) 112/76 119/74 (89) Pulse Ox 97 82 O2 Delivery Room Air 02/06/18 02/06/18 02/06/18 02/07/18 23:26 23:41 23:46 00:01 Pulse 76 73 78 Pulse Ox 93 93 93 92 02/07/18 00:16 Pulse 81 Pulse Ox 93 Physical Exam General Appearance: The patient is alert, has no immediate need for airway protection and no current signs of toxicity., Restless, agitated, hypervigilant. HEENT: Pupils equal and round no injection. Oropharynx without redness or exudate, mucous. Membranes are moist Respiratory: Chest is non tender, lungs are clear to auscultation. Cardiac: regular rate and rhythm Gastrointestinal: Abdomen is soft and non tender, no masses, bowel sounds normal. Musculoskeletal: Neck: Neck is supple and non tender. No thyromegaly, no lymphadenopathy Extremities have full range of motion and are non tender. Skin: No rashes or lesions. DIFFERENTIAL DIAGNOSIS: After history and physical exam differential diagnosis was considered for depression including functional and major depression, situational depression, anxiety, schizophrenia, bipolar disorder, medication side effect, drugs and alcohol abuse. Medical Decision Making Data Points Result Diagram: 02/06/18219902/06/182199 Laboratory Hematology Test 02/06/18 22:00 02/06/18 23:02 Red Blood Count 6.36 M/uL (4.00-5.60) Mean Corpuscular Volume 89.1 fL (80.0-96.0) Mean Corpuscular Hemoglobin 30.5 pg (26.0-33.0) Mean Corpuscular Hemoglobin Concent 34.3 g/dL (32.0-36.0) Red Cell Distribution Width 13.3 % (11.5-14.5) Mean Platelet Volume 11.1 fL (7.2-11.1) Neutrophils (%) (Auto) 57.0 % (39.4-72.5) Lymphocytes (%) (Auto) 28.2 % (17.6-49.6) Monocytes (%) (Auto) 7.9 % (4.1-12.4) Eosinophils (%) (Auto) 6.2 % (0.4-6.7) Basophils (%) (Auto) 0.7 % (0.3-1.4) Nucleated RBC Relative Count (auto) 0.4 /100WBC Neutrophils # (Auto) 7.7 K/uL (2.0-7.4) Lymphocytes # (Auto) 3.8 K/uL (1.3-3.6) Monocytes # (Auto) 1.1 K/uL (0.3-1.0) Eosinophils # (Auto) 0.8 K/uL (0.0-0.5) Basophils # (Auto) 0.1 K/uL (0.0-0.1) Nucleated RBC Absolute Count (auto) 0.05 K/uL Sodium Level 140 mmol/L (137-145) Potassium Level 3.2 mmol/L (3.5-5.0) Chloride Level 104 mmol/L (98-107) Carbon Dioxide Level 26 mmol/L (22-30) Blood Urea Nitrogen 11 mg/dl (9-21) Creatinine 1.00 mg/dl (0.66-1.25) Glomerular Filtration Rate Calc > 60.0 Random Glucose 104 mg/dl (75-110) Calcium Level 9.7 mg/dl (8.4-10.2) Magnesium Level 2.1 mg/dl (1.7-2.2) Total Bilirubin 0.6 mg/dl (0.2-1.3) Aspartate Amino Transf (AST/SGOT) 35 U/L (0-35) Alanine Aminotransferase (ALT/SGPT) 43 U/L (0-56) Alkaline Phosphatase 70 U/L (0-126) Total Protein 8.4 g/dl (6.3-8.2) Albumin 4.7 g/dl (3.5-5.0) Salicylates Level < 10 mg/L Salicylate Last Dose Date unk Acetaminophen Level < 10 ug/ml Serum Alcohol < 10 mg/dl Urine Color Yellow Urine Clarity Slightly-cloudy Urine pH 6.0 pH (4.8-9.5) Urine Specific [place] 1.026 Urine Protein 30 mg/dL (NEGATIVE) Urine Glucose (UA) Negative mg/dL (NEGATIVE) Urine Ketones Negative mg/dL (NEGATIVE) Urine Blood Negative (NEGATIVE) Urine Nitrite Negative (NEGATIVE) Urine Bilirubin Negative (NEGATIVE) Urine Urobilinogen Negative mg/dL (0.2-1.9) Urine Leukocyte Esterase Negative (NEGATIVE) Urine RBC 4 /HPF (0-2/HPF) Urine WBC 2 /HPF (0-5/HPF) Urine Squamous Epithelial Cells Few /LPF (</=FEW) Urine Amorphous Crystals Few /HPF Urine Bacteria Negative /HPF (NONE-FEW) Urine Mucus Few /HPF (NONE-FEW) Urine Opiates Screen Negative Urine Barbiturates Screen Negative Ur Tricyclic Antidepressants Screen Negative Urine Phencyclidine Screen Negative Urine Amphetamines Screen Negative Urine Benzodiazepines Screen Negative Urine Cocaine Screen Negative Urine Cannabinoids Screen Negative Chemistry Test 02/06/18 22:00 02/06/18 23:02 White Blood Count 13.6 k/uL (4.5-11.0) Red Blood Count 6.36 M/uL (4.00-5.60) Hemoglobin 19.4 g/dL (14.0-18.0) Hematocrit 56.7 % (42.0-52.0) Mean Corpuscular Volume 89.1 fL (80.0-96.0) Mean Corpuscular Hemoglobin 30.5 pg (26.0-33.0) Mean Corpuscular Hemoglobin Concent 34.3 g/dL (32.0-36.0) Red Cell Distribution Width 13.3 % (11.5-14.5) Platelet Count 197 K/uL (150-450) Mean Platelet Volume 11.1 fL (7.2-11.1) Neutrophils (%) (Auto) 57.0 % (39.4-72.5) Lymphocytes (%) (Auto) 28.2 % (17.6-49.6) Monocytes (%) (Auto) 7.9 % (4.1-12.4) Eosinophils (%) (Auto) 6.2 % (0.4-6.7) Basophils (%) (Auto) 0.7 % (0.3-1.4) Nucleated RBC Relative Count (auto) 0.4 /100WBC Neutrophils # (Auto) 7.7 K/uL (2.0-7.4) Lymphocytes # (Auto) 3.8 K/uL (1.3-3.6) Monocytes # (Auto) 1.1 K/uL (0.3-1.0) Eosinophils # (Auto) 0.8 K/uL (0.0-0.5) Basophils # (Auto) 0.1 K/uL (0.0-0.1) Nucleated RBC Absolute Count (auto) 0.05 K/uL Glomerular Filtration Rate Calc > 60.0 Calcium Level 9.7 mg/dl (8.4-10.2) Magnesium Level 2.1 mg/dl (1.7-2.2) Total Bilirubin 0.6 mg/dl (0.2-1.3) Aspartate Amino Transf (AST/SGOT) 35 U/L (0-35) Alanine Aminotransferase (ALT/SGPT) 43 U/L (0-56) Alkaline Phosphatase 70 U/L (0-126) Total Protein 8.4 g/dl (6.3-8.2) Albumin 4.7 g/dl (3.5-5.0) Salicylates Level < 10 mg/L Salicylate Last Dose Date unk Acetaminophen Level < 10 ug/ml Serum Alcohol < 10 mg/dl Urine Color Yellow Urine Clarity Slightly-cloudy Urine pH 6.0 pH (4.8-9.5) Urine Specific [place] 1.026 Urine Protein 30 mg/dL (NEGATIVE) Urine Glucose (UA) Negative mg/dL (NEGATIVE) Urine Ketones Negative mg/dL (NEGATIVE) Urine Blood Negative (NEGATIVE) Urine Nitrite Negative (NEGATIVE) Urine Bilirubin Negative (NEGATIVE) Urine Urobilinogen Negative mg/dL (0.2-1.9) Urine Leukocyte Esterase Negative (NEGATIVE) Urine RBC 4 /HPF (0-2/HPF) Urine WBC 2 /HPF (0-5/HPF) Urine Squamous Epithelial Cells Few /LPF (</=FEW) Urine Amorphous Crystals Few /HPF Urine Bacteria Negative /HPF (NONE-FEW) Urine Mucus Few /HPF (NONE-FEW) Urine Opiates Screen Negative Urine Barbiturates Screen Negative Ur Tricyclic Antidepressants Screen Negative Urine Phencyclidine Screen Negative Urine Amphetamines Screen Negative Urine Benzodiazepines Screen Negative Urine Cocaine Screen Negative Urine Cannabinoids Screen Negative Toxicology Test 02/06/18 22:00 02/06/18 23:02 Salicylates Level < 10 mg/L Salicylate Last Dose Date unk Acetaminophen Level < 10 ug/ml Serum Alcohol < 10 mg/dl Urine Opiates Screen Negative Urine Barbiturates Screen Negative Ur Tricyclic Antidepressants Screen Negative Urine Phencyclidine Screen Negative Urine Amphetamines Screen Negative Urine Benzodiazepines Screen Negative Urine Cocaine Screen Negative Urine Cannabinoids Screen Negative Urinalysis Test 02/06/18 23:02 Urine Color Yellow Urine Clarity Slightly-cloudy Urine pH 6.0 pH (4.8-9.5) Urine Specific [place] 1.026 Urine Protein 30 mg/dL (NEGATIVE) Urine Glucose (UA) Negative mg/dL (NEGATIVE) Urine Ketones Negative mg/dL (NEGATIVE) Urine Blood Negative (NEGATIVE) Urine Nitrite Negative (NEGATIVE) Urine Bilirubin Negative (NEGATIVE) Urine Urobilinogen Negative mg/dL (0.2-1.9) Urine Leukocyte Esterase Negative (NEGATIVE) Urine RBC 4 /HPF (0-2/HPF) Urine WBC 2 /HPF (0-5/HPF) Urine Squamous Epithelial Cells Few /LPF (</=FEW) Urine Amorphous Crystals Few /HPF Urine Bacteria Negative /HPF (NONE-FEW) Urine Mucus Few /HPF (NONE-FEW) ED Course/Re-evaluation ED Course Patient was admitted to an examination room. H&P was done. The differential diagnoses was considered. On clinical examination, patient appears agitated restless and acutely psychotic. He is afraid that someone poisoned his ciga rettes. He stopped smoking today. He is going through nicotine withdrawal. This is patient's 3rd visit for not feeling well and acute anxiety. I think patient has undiagnosed schizophrenia and needs to be admitted. This is his 3rd visit in 36 hours. He will voluntarily be admitted to behavioral health services. Patient's medicated with Ativan 2 mg IV, Seroquel 400 mg by mouth 02/06/2018 11:31:41 pm case discussed with Dr. Hollins psychiatrist on-call. He accepts the patient is a voluntary admission to behavioral health service. Decision to Disposition Date: Feb 06, 2018 Decision to Disposition Time: 22:55 Depart Departure Latest Vital Signs Vital Signs Date Time Temp Pulse Resp B/P (MAP) Pulse Ox O2 Delivery O2 Flow Rate FiO2 02/07/18 00:16 81 93 02/06/18 22:30 119/74 (89) 02/06/18 21:59 98.1 20 Room Air Impression: Primary Impression: Schizophrenia Condition: Improved Disposition: XFER [facility] Problem Qualifiers Primary Impression: Schizophrenia Schizophrenia type: unspecified Qualified Codes: F20.9 - Schizophrenia, unspecified MARCELINO PLEITEZ DO Feb 06, 2018 22:00
[2018-02-06] MEDS ORDERED: LORazepam 2 MG/ML VIAL IVP ONE (22:15)
[2018-02-06] MEDS ORDERED: NICOTINE 21 MG/24 HR PATCH TD ONE (22:15)
[2018-02-06 22:30] VITALS: BP 119/74
[2018-02-06 22:30] LABS: PLATELET COUNT, AUTOMATED 197 K/uL (150-450)
[2018-02-06] MEDS ORDERED: QUEtiapine FUM 100 MG TAB PO ONE (23:05)
== END 2018-02-07 00:15 ==
LOC: ER 22:00
DX: F20.9 Schizophrenia, unspecified (principal)
CPT/HCPCS: 80305; 81001; 83735; 84443; 85025; 96374; 99284; G0480; J2060; 80320; 80329; 82040; 82247; 82310; 82374; 82435; 82565; 82947; 84075; 84132; 84155; 84295; 84450; 84460; 84520

== ENCOUNTER → 2018-02-06 | Outpatient (CLI) | payer MEDICAID ==
[~2018-02-06] MED LIST changes: +CHOL10005 PO; +LORA-1458 PO; +MULT-1379 PO; +NICO-219 BC; +OMEG1CAP35 PO; +QUET100T29 PO
== END ==
LOC: AMB 21:45
PROVIDERS: ATTEND Nurse Practitioner
DX: F41.9 Anxiety disorder, unspecified (principal)
CPT/HCPCS: A0425; A0427

== ENCOUNTER → 2018-02-06 | Outpatient (CLI) | payer MEDICAID | LOC: AMB 06:58 | PROVIDERS: ATTEND Nurse Practitioner | DX: R06.02 Shortness of breath (principal); F41.9 Anxiety disorder, unspecified | CPT/HCPCS: A0425; A0427 ==

== ENCOUNTER 2018-02-07 00:03 | Inpatient (IN) | payer MEDICAID ==
[~2018-02-07] VITALS: Ht 157.5 cm; Wt 74.8 kg
[2018-02-07] MEDS ORDERED: MAG HYD/AL HYD/SIMETH 30ML UDC PO PRN (00:15)
[2018-02-07] MEDS ORDERED: ACETAMINOPHEN 325 MG TAB PO PRN (00:15)
[2018-02-07 01:00] VITALS: BP 93/59
[2018-02-07 05:00] VITALS: BP 105/65
[2018-02-07] MEDS: MULTIVITAMINS TAB PO SCH (08:09)
[2018-02-07] MEDS: FOLIC ACID 1 MG TAB PO SCH (11:39)
[2018-02-07] MEDS: NICOTINE POLACRILEX 2 MG GUM PO PRN (11:39)
[2018-02-07] MEDS: CHOLECALCIFEROL 1000 UNIT TAB PO SCH (11:39)
[2018-02-07] MEDS: OMEGA-3 500 MG CAP PO SCH (11:39)
[2018-02-07] MEDS: THIAMINE HCL 100 MG TAB PO SCH (11:39)
[2018-02-07 15:03] VITALS: BP 101/71
[2018-02-07] MEDS: QUEtiapine FUM 100 MG TAB PO SCH (20:41)
[2018-02-07 21:36] VITALS: BP 100/72
[2018-02-08] MEDS: NICOTINE POLACRILEX 2 MG GUM PO PRN ×2 (00:34→08:20)
[2018-02-08 04:56] VITALS: BP 108/60
[2018-02-08] MEDS: THIAMINE HCL 100 MG TAB PO SCH (08:19)
[2018-02-08] MEDS: FOLIC ACID 1 MG TAB PO SCH (08:19)
[2018-02-08] MEDS: MULTIVITAMINS TAB PO SCH (08:19)
[2018-02-08] MEDS: CHOLECALCIFEROL 1000 UNIT TAB PO SCH (08:19)
[2018-02-08] MEDS: OMEGA-3 500 MG CAP PO SCH (08:19)
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
[2018-02-08 10:51] VITALS: BP 118/68
--- NOTE | 2018-02-08 15:37 | BHS Progress Note ---
[facility] - Subjective Progress Notes Subjective Patient remains polite on the unit, again talking of what he calls "paranoia" and how he had to repeatedly ask staff to re-assure him that he was medically healthy last PM. Notably in this patient who verbalizes an increase in suspicion of others, he demonstrates a need for attention from staff. Patient reports wanting to remain on seroquel at 200mg PO QHS, and that he may be good enough to "go home tomorrow". Suicidal Ideation: None Homicidal Ideation: None [facility] - Objective Physical Exam Vital Signs Vital Signs Date Time Temp Pulse Resp B/P (MAP) Pulse Ox O2 Delivery O2 Flow Rate FiO2 02/08/18 10:51 97.8 82 118/68 (85) 94 Room Air 02/08/18 04:56 16 Muscle Strength and Tone: WNL Gait and Station: Steady [facility] Medications Reviewed: Side Effects, Benefits of Medication, Risks Allergies Reviewed: Yes Mental Status Exam General Appearance: Casual, Well Groomed, Good Eye Contact (improved), Cooperative, Polite, Good Interaction; No Unkept, No Tearful, No Psychomotor Agitation; Psychomotor Retardation; No Bizarre Mannerisms, No Tics Speech: Clear, Spontaneous, Normal Rate, Normal Rhythm, Normal Volume (quiet at times), Normal Tone; No Garbled, No Rambling, No Inappropriate Mood: Euthymic Affect: Full and Appropriate (breifly), Calm; No Withdrawn, No Tearful, No Anxious, No Agitated Thought Process: Organized, Logical, Goal Directed; No Loose Associations, No Flight of Ideas Thought Content: No Suicidal Ideation, No Homicidal Ideation; Delusions (vague, but by his own admission.), Auditory Halllucinations (at times); No Visual Hallucinations, No Thought Broadcasting, No Ideas of Reference, No Obsessions, No Compulsions Sensorium: Clear Cognition: Alert & Oriented-Person, Alert & Oriented-Place, Alert & Oriented- Time, Abtwy-Kykzdcrc-Ilormeuhs Memory: Immediate, Recent, Remote Intelligence: Average Insight Judgment: Fair (limited but improving. ) [facility] Assessment and Plan [id number] Encounter Date: Feb 08, 2018 [id number] Encounter Time: 15:30 [facility] Plan: Necessary Precautions, Individual/Group Therapy, Admin/Titrate Meds, Educate Patient Tobacco Medications: Started Multpiple Antipsychotics Used: No Problems: (1) Unspecified psychosis Status: Chronic Condition 1. continue treatment. 2. meeting with patient's mother in AM. 3. continue current medications. PATRICIA REYES MD Feb 08, 2018 15:37
[2018-02-08] MEDS: QUEtiapine FUM 100 MG TAB PO SCH (20:49)
[2018-02-09 06:40] VITALS: BP 126/70
[2018-02-09] MEDS: OMEGA-3 500 MG CAP PO SCH (08:13)
[2018-02-09] MEDS: CHOLECALCIFEROL 1000 UNIT TAB PO SCH (08:13)
[2018-02-09] MEDS: THIAMINE HCL 100 MG TAB PO SCH (08:13)
[2018-02-09] MEDS: FOLIC ACID 1 MG TAB PO SCH (08:13)
[2018-02-09] MEDS: MULTIVITAMINS TAB PO SCH (08:13)
[2018-02-09] MEDS ORDERED: QUET100T29 PO (11:22)
[2018-02-09] MEDS ORDERED: OMEG1CAP35 PO (11:24)
[2018-02-09] MEDS ORDERED: MULT-1379 PO (11:24)
[2018-02-09] MEDS ORDERED: CHOL10005 PO (11:24)
[2018-02-09] MEDS ORDERED: NICO-219 BC (11:25)
--- NOTE | 2018-02-13 05:27 | SCHAAF DISCHARGE ---
DATE OF ADMISSION: February 07, 2018 DATE OF DISCHARGE: February 09, 2018 ATTENDING PHYSICIAN Alverto Hollins MD Patient was seen at approximately 1100 hours on 09 February 2018 for note concerning this dictation. FINAL DIAGNOSES 1. Psychosis, unspecified; rule out delusional disorder, persecutory type. 2. Cluster B personality traits. Patient having supportive family relationship with mother, who lives locally. REASON FOR ADMISSION This is a 32-year-old male who was seen in the emergency room initially on February 05 for noncardiac chest pain, then February 06 for insomnia. Patient again seen on February 06 for what patient was describing as a psychosis. Patient was admitted on a voluntary basis to [facility] without incident. Upon arrival, patient remained friendly, calm, cooperative. Patient initially describing psychotic symptoms including "paranoia and delusions." When further questioned, patient unable to identify any specific symptoms. Patient stating, "I have been paranoid" or "I have been delusional," using medical terminology to describe symptoms other than the symptoms themselves. Throughout patient's stay, patient was calm, cooperative, and interacting in a way inconsistent with gross psychosis. Patient appears in some ways to be a less than accurate historian regarding symptomatology. Patient continually trying to get staff support while simultaneously voicing paranoia. Patient notably interacting in a very social manner with other patients on the floor as well. Patient was continued on Seroquel, which had been prescribed to him by an outpatient provider in [place]. Patient had recently stopped taking Seroquel, even though patient reported that it works well for him for sleep. Interview with mother, who lives here in town close to the patient, indicated that patient receives financial support from his stepfamily and thereby has been allowed to live in an apartment without having to work. Patient's mother states the patient is very bored and needs to socialize. Patient again seemingly demonstrating the need for socialization throughout his stay on the Behavioral Health Unit. At time of discharge, patient stating he was safe to go home. He had a job interview planned for the next week. Patient's mother reporting that the patient has been nonviolent in nature his whole life. Patient not demonstrating any aggression towards self or others throughout his stay. Patient denying any "paranoia" or "delusions" at time of discharge . PHYSICAL EXAMINATION Please see emergency room note. Notable for a 32-year-old male seemingly trying to promote medical and psychiatric symptomatology in order to be admitted. Seen in the emergency room on multiple occasions. Vital signs at the time of admission: Temperature 98.1, pulse 87, respiratory rate 20, blood pressure 112/76 and pulse oximetry 97% on room air. Vital signs at the time of discharge from [facility]: Temperature 97.2, pulse 109, respiratory rate 14, blood pressure 126/70 and pulse oximetry 96% on room air. LABORATORY DATA Free T4 noted to be 1.04 and normal range, free T3 of 3.0 and normal range. CBC on arrival to the hospital indicated white blood cells slightly elevated at 13.6, RBCs elevated at 6.36, and a hemoglobin and hematocrit elevated at 19.4 and 56.7. Chemistry panel notable for potassium 3.2 and low. TSH 3.42. Urinalysis unremarkable with the exception of urine protein present. Toxicology screen negative for substances of abuse. Nondetectable serum alcohol level upon arrival. MENTAL STATUS EXAMINATION AT TIME OF DISCHARGE GENERAL APPEARANCE, BEHAVIOR AND ATTITUDE: This is well-groomed 32-year-old male who appears stated age, making good eye contact, interacting well with this provider and other staff members, interacting well with his mother as well Patient making good eye contact, non-tearful. No bizarre mannerisms or tics. SPEECH: Within normal limits. Regular rate, rhythm, volume and tone. MOOD: Described as good. . AFFECT: Full and mood-congruent. THOUGHT PROCESSES: Goal-directed and logical. Patient stating, "I am ready to discharge." No loose associations or flight of ideas. THOUGHT CONTENT: Patient at time of discharge denying any auditory or visual hallucinations, ideas of reference, thought broadcastings, delusions, obsessions or compulsions. Patient adamantly denying suicidal or homicidal ideation. SENSORIUM: Clear. COGNITION: Alert and oriented to person, place, time and situation. MEMORY: Immediate, recent and remote estimated intact. INTELLIGENCE: Average, based on interview. INSIGHT AND JUDGMENT: Limited, likely due to some underlying maladaptive personality traits more than any underlying psychosis, but appropriate for outpatient care and further medical followup for elevated hemoglobin and hematocrit. RESULTS OF TESTING Imaging: None. Laboratory data: See above. CONSULTATIONS None. TREATMENT Patient received medications, participated in individual and group therapy. HOSPITAL COURSE Patient periodically verbalizing symptoms of what the patient described as "paranoia" and "delusions" throughout his stay. Patient seemingly eager to have staff pay close attention to him, and was not demonstrating any actual symptoms of paranoia or delusions while on the unit. Patient remained on Seroquel at night. Patient resistant to overnight pulse oximetry monitoring to rule out sleep apnea, and patient will need to follow up with outpatient provider for take-home overnight pulse ox reading. Patient sleeping well, eating well, denying any other symptoms of concern at time of discharge. No parasuicidal or aggressive behaviors or any behaviors associated with gross psychosis were seen throughout his stay. CONDITION OF PATIENT ON DISCHARGE Stable. Considered a minimal risk to himself or others and appropriate for ongoing outpatient care. DISPOSITION The patient was discharged to home in care of his mother. He would follow up with outpatient medication management and therapy. Patient encouraged to see primary care provider for elevated hemoglobin and hematocrit. He was given the crisis line should symptoms return. Patient encouraged to stop smoking cigarettes and use [id number] nicotine replacement. Patient would remain on omega-3 fish oil 1000 mg daily; vitamin D3 1000 international units daily, and multivitamin with minerals daily. Patient would also take quetiapine 200 mg p.o. at bedtime. Patient was also to follow up with primary care or psychiatric services for overnight pulse ox monitoring prescribed on an outpatient basis to rule out sleep apnea. Patient encouraged to go to vocational rehab as well. Crisis line given should symptoms return. The risks, benefits and alternatives of the above discharge plan were discussed. Informed consent was given to proceed with the above discharge plan by this patient. Patient's mother present at the time of discharge. OCTAVIANO
== END 2018-02-09 11:45 | disposition home or self-care (01) | DRG 885 ==
LOC: BHS 00:03
PROVIDERS: ADMIT Psychiatry & Neurology Psychiatry; ATTEND Psychiatry & Neurology Psychiatry
DX: F29 Unspecified psychosis not due to a substance or known physiological condition (principal); F22 Delusional disorders; F17.210 Nicotine dependence, cigarettes, uncomplicated; Z81.8 Family history of other mental and behavioral disorders; Z76.5 Malingerer [conscious simulation]
CPT/HCPCS: 36415; 80305; 80320; 80329; 81001; 82040; 82247; 82310; 82374; 82435; 82565; 82947; 83735; 84075; 84132; 84155; 84295; 84439; 84443; 84450; 84460; 84481; 84484; 84520; 85025; 93005; 96374; 99283; 99284; J2060

== ENCOUNTER 2018-02-09 18:50 | Emergency (ER) | payer MEDICAID ==
[~2018-02-09 18:50] MED LIST changes: -LORA-1458 PO
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
[2018-02-09] MEDS ORDERED: NICOTINE 21 MG/24 HR PATCH TD ONE (19:45)
[2018-02-09 20:15] LABS: PLATELET COUNT, AUTOMATED 193 K/uL (150-450)
[2018-02-09 20:41] VITALS: BP 138/101
== END 2018-02-09 21:26 | disposition home or self-care (01) ==
LOC: ER 19:15
DX: F29 Unspecified psychosis not due to a substance or known physiological condition (principal); F17.210 Nicotine dependence, cigarettes, uncomplicated
CPT/HCPCS: 36415; 80305; 81001; 83735; 84443; 85025; 99283; G0480; 80320; 80329; 82040; 82247; 82310; 82374; 82435; 82565; 82947; 84075; 84132; 84155; 84295; 84450; 84460; 84520

== ENCOUNTER → 2018-02-09 | Outpatient (CLI) | payer MEDICAID ==
[~2018-02-09] MED LIST changes: +CHOL10005 PO; +LORA-1458 PO; +MULT-1379 PO; +NICO-219 BC; +OMEG1CAP35 PO; +QUET100T29 PO
== END ==
LOC: AMB 18:18
PROVIDERS: ATTEND Nurse Practitioner
DX: F41.9 Anxiety disorder, unspecified (principal); R06.00 Dyspnea, unspecified
CPT/HCPCS: A0425; A0427

== ENCOUNTER 2018-02-14 00:41 | Emergency (ER) | payer MEDICAID ==
[~2018-02-14 00:41] MED LIST changes: -LORA-1458 PO
[2018-02-14 00:44] VITALS: BP 114/67
--- NOTE | 2018-02-14 00:56 | ER Report ---
History and Physical Time Seen By MD: 00:56 Hx. of Stated Complaint: pt having an anxiety attack. states he just wants to stay the night and get something to eat. states he does not remember the last time he slept or ate. HPI/ROS CHIEF COMPLAINT: Anxiety, cant sleep, has not eaten HISTORY OF PRESENT ILLNESS: This is a 32 year old male. He is having trouble sleeping. He has severe anxiety which is more severe than usual tonight. He takes Seroquel and did take this tonight and while feeling groggy, he cannot get to sleep. He worries about his new job and has to be there at 9am this morning. He is requesting that if he were to sleep here at the hospital and get a meal, he would feel better. He is not suicidal or having thoughts of hurting others. He has no primary care provider or mental health counselor. He says he works days Monday through Monday and cannot get in to see anyone because he is only off on the weekend. He has no car and cannot get around well to get groceries or do other things he needs, so has not been eating much, saying he cannot get a taxi or Uber and it is too far to walk. Allergies: Coded Allergies: No Known Drug Allergies (Unverified , 02/06/18) Home Meds Reported Medications Nicotine Polacrilex (NICORETTE) 2 Mg Gum, 2 MG BC Q1-2H PRN for NICOTINE REPLACEMENT, GUM 02/09/18 Cholecalciferol (Vitamin D3) (VITAMIN D3) 1,000 Unit Tablet, 1000 UNIT PO QDAY, TAB 02/09/18 Multivits,Th W-Fe,Other Min (THERA-M) 1 Each Tablet, 1 EACH PO QDAY 02/09/18 [place]-3/Dha/Epa/Fish Oil (FISH OIL 500 MG SOFTGEL) 1 Each Capsule, 1000 MG PO QDAY, CAPSULE 02/09/18 Quetiapine Fumarate (SEROQUEL) 100 Mg Tablet, 200 MG PO QHS TAKE TWO TABLETS (200 MG) AT BEDTIME. 02/09/18 Reviewed Nurses Notes: Yes Hx Smoking: Yes Smoking Status: Current: Every Day Smoker Exposure to Second Hand Smoke?: No Hx Substance Use Disorder: Yes Hx Alcohol Use: Yes Constitutional Vital Sign - Last 24 Hours 11/14/18 00:44 Temp 97.3 Pulse 73 Resp 18 B/P (MAP) 114/67 Pulse Ox 94 Physical Exam General Appearance: Alert, but groggy. No acute distress, but is anxious. Eyes: Pupils equal and round no injection. ENT: Moist mucous membranes. Respiratory: Breathing easily, no distress. Cardiac: regular rate and rhythm Neuro: No focal deficits, moving all extremities. Alert and oriented x3. No SI or HI DIFFERENTIAL DIAGNOSIS: After history and physical exam differential diagnosis was considered for anxiety and insomnia which seems based on the anxiety. Medical Decision Making ED Course/Re-evaluation ED Course I let him know that he could not sleep here in the ER. He is not interested in being admitted. I will provide two doses of Ativan 0.5mg as noted below. We offered a snack and had one of the [employer] techs talk to him about resources. Decision to Disposition Date: Feb 14, 2018 Decision to Disposition Time: 01:10 Depart Departure Latest Vital Signs Vital Signs Date Time Temp Pulse Resp B/P (MAP) Pulse Ox O2 Delivery O2 Flow Rate FiO2 02/14/18 00:44 97.3 73 18 114/67 94 Impression: Primary Impression: Insomnia Additional Impression: Anxiety Condition: Condition Unchanged Disposition: HOME OR SELF-CARE Patient Instructions: Anxiety (ED), Insomnia (ED) Additional Instructions: You need to get set up with a behavioral health counselor and a primary care provider. Take Ativan tonight to help with the anxiety attack and to help you sleep tonight. Take one 0.5mg tablet on return home. You can repeat a tablet in 30 minutes is still having severe anxiety and unable to sleep. Problem Qualifiers Primary Impression: Insomnia Insomnia type: due to other mental disorder Qualified Codes: F51.05 - Insomnia due to other mental disorder; F99 - Mental disorder, not otherwise specified ANNA CARDOZA MD Feb 14, 2018 00:56
[2018-02-14] MEDS ORDERED: LORazepam 0.5 MG TAB PO ONE (01:10)
== END 2018-02-14 01:30 | disposition home or self-care (01) ==
LOC: ER 00:50
DX: F51.05 Insomnia due to other mental disorder (principal); F99 Mental disorder, not otherwise specified; F41.9 Anxiety disorder, unspecified
CPT/HCPCS: 99283

== ENCOUNTER → 2018-02-14 | Outpatient (CLI) | payer MEDICAID ==
[~2018-02-14] MED LIST changes: +LORA-1458 PO
== END ==
LOC: AMB 00:30
PROVIDERS: ATTEND Nurse Practitioner
DX: F41.9 Anxiety disorder, unspecified (principal)
CPT/HCPCS: A0425; A0429

== ENCOUNTER 2018-02-18 19:14 | Emergency (ER) | payer MEDICAID ==
--- NOTE | 2018-02-18 19:25 | ER Report ---
History and Physical Time Seen By MD: 19:19 HPI/ROS CHIEF COMPLAINT: Irregular heartbeat, palpitations HISTORY OF PRESENT ILLNESS: 32-year-old male well-known to this ER for frequent visits for mental health disorder. He presents with acute psychosis. He was admitted to [facility] back on 02/08 for 24 hours. He was discharged home to the care of his mother on Seroquel 200 mg. Subsequently the patient was in the ER on 02/09 and 02/14 REVIEW OF SYSTEMS: Respiratory: No cough, no dyspnea. Cardiovascular: No chest pain, no palpitations. Gastrointestinal: No vomiting, no abdominal pain. Musculoskeletal: No back pain. Allergies: Coded Allergies: No Known Drug Allergies (Unverified , 02/06/18) Home Meds Reported Medications Lorazepam (ATIVAN) 2 Mg Tablet, 2 MG PO BID 02/18/18 Cholecalciferol (Vitamin D3) (VITAMIN D3) 1,000 Unit Tablet, 1000 UNIT PO QDAY, TAB 02/09/18 Multivits,Th W-Fe,Other Min (THERA-M) 1 Each Tablet, 1 EACH PO QDAY 02/09/18 Quetiapine Fumarate (SEROQUEL) 100 Mg Tablet, 200 MG PO QHS TAKE TWO TABLETS (200 MG) AT BEDTIME. 02/09/18 Discontinued Reported Medications Nicotine Polacrilex (NICORETTE) 2 Mg Gum, 2 MG BC Q1-2H PRN for NICOTINE REPLACEMENT, GUM 02/09/18 [place]-3/Dha/Epa/Fish Oil (FISH OIL 500 MG SOFTGEL) 1 Each Capsule, 1000 MG PO QDAY, CAPSULE 02/09/18 Reviewed Nurses Notes: Yes Old Medical Records Reviewed: Yes Hx Smoking: Yes Smoking Status: Current: Every Day Smoker Exposure to Second Hand Smoke?: No Hx Substance Use Disorder: Yes Hx Alcohol Use: Yes Constitutional Vital Sign - Last 24 Hours 02/18/18 02/18/18 02/18/18 02/18/18 19:14 19:19 19:20 19:29 Temp 98.1 Pulse ??? 85 75 Resp 22 B/P (MAP) 127/82 127/82 (97) Pulse Ox 97 94 O2 Delivery Room Air 02/18/18 02/18/18 02/18/18 02/18/18 19:30 19:44 19:59 20:00 Pulse 74 80 B/P (MAP) 129/86 (100) 118/74 (89) Pulse Ox 91 85 02/18/18 02/18/18 02/18/18 20:14 20:29 20:30 Pulse 80 86 B/P (MAP) 117/84 (95) Pulse Ox 89 90 Physical Exam General Appearance: The patient is alert, has no immediate need for airway protection and no current signs of toxicity. Agitation and restlessness. Consistent with his previous presentations. HEENT: Pupils equal and round no injection. TMs normal, oropharynx without redness or exudate Respiratory: Chest is non tender, lungs are clear to auscultation. No chest wall tenderness Cardiac: regular rate and rhythm Gastrointestinal: Abdomen is soft and non tender, no masses, bowel sounds normal. Musculoskeletal: Neck: Neck is supple and non tender. Extremities have full range of motion and are non tender. Skin: No rashes or lesions. DIFFERENTIAL DIAGNOSIS: After history and physical exam differential diagnosis was considered for depression including functional and major depression, situational depression, medication side effect, it's for any, anxiety, panic attack drugs and alcohol abuse. Medical Decision Making EKG/Imaging EKG Interpretation 12 lead EK Rhythm: normal sinus rhythm [place]: normal QRS: normal ST segments: normal, no evidence of ischemia or dysrhythmia ED Course/Re-evaluation ED Course Patient was admitted to an examination room. H&P was done. The differential diagnoses was considered. Clinical examination. Patient has agitation and restlessness. Patient's well-known to me from numerous ER visits. He's recently admitted to behavioral health service for 3 days. He is likely not compliant on his medications. Patient's medicated with Ativan 2 mg by mouth. His agitation is much improved. He is discharged home and advised to continue taking his Seroquel as prescribed and follow up with outpatient mental health services as advised. During his last admission. Decision to Disposition Date: Feb 18, 2018 Decision to Disposition Time: 20:43 Depart Departure Latest Vital Signs Vital Signs Date Time Temp Pulse Resp B/P (MAP) Pulse Ox O2 Delivery O2 Flow Rate FiO2 02/18/18 20:30 117/84 (95) 02/18/18 20:29 86 90 02/18/18 19:19 98.1 22 Room Air Impression: Primary Impression: Anxiety Additional Impression: Palpitations Condition: Improved Disposition: HOME OR SELF-CARE Patient Instructions: Anxiety (ED) Problem Qualifiers MARCELINO PLEITEZ DO Feb 18, 2018 19:25
[2018-02-18] MEDS ORDERED: QUEtiapine FUM 100 MG TAB PO ONE (19:30)
[2018-02-18] MEDS ORDERED: LORazepam 1 MG TAB PO ONE ×2 (19:30→19:40)
[2018-02-18] MEDS ORDERED: LORA-1458 PO (19:32)
[2018-02-18 20:30] VITALS: BP 117/84
--- NOTE | 2018-02-18 23:05 | EKG ---
FACILITY: [facility] PATIENT NAME: ELAINA WAGNER : [id number] MR: [id number] V: [id number] EXAM DATE: ORDERING PHYSICIAN: MARCELINO PLEITEZ TECHNOLOGIST: JOON Test Reason : CHEST PAIN Blood Pressure : / mmHG Vent. Rate : 080 BPM Atrial Rate : 080 BPM P-R Int : 148 ms QRS Dur : 102 ms QT Int : 392 ms P-R-T Axes : 064 029 051 degrees QTc Int : 452 ms Normal sinus rhythm Normal ECG Confirmed by MELISSA LUNDBERG ([id number]) on 02/19/2018 6:17:30 AM Referred By: Confirmed By:MELISSA LUNDBERG
== END 2018-02-18 20:50 | disposition home or self-care (01) ==
LOC: ER 19:20
DX: F41.9 Anxiety disorder, unspecified (principal); R00.2 Palpitations
CPT/HCPCS: 93005; 99283

== ENCOUNTER 2018-02-21 08:13 | Emergency (ER) | payer MEDICAID ==
[2018-02-21 08:14] VITALS: BP 112/83
--- NOTE | 2018-02-21 08:41 | EKG ---
FACILITY: [facility] PATIENT NAME: ELAINA WAGNER : [id number] MR: [id number] V: [id number] EXAM DATE: ORDERING PHYSICIAN: LIBORIO DEXTER TECHNOLOGIST: KHALIF Test Reason : PALPITATIONS Blood Pressure : / mmHG Vent. Rate : 088 BPM Atrial Rate : 088 BPM P-R Int : 154 ms QRS Dur : 102 ms QT Int : 376 ms P-R-T Axes : 054 015 025 degrees QTc Int : 454 ms Normal sinus rhythm Normal ECG When compared with ECG of 18-FEB-2018 19:29, No significant change was found Confirmed by VANESA GARCÍA ([id number]) on 02/21/2018 11:50:39 AM Referred By: ISACC Confirmed By:VANESA GARCÍA
--- NOTE | 2018-02-21 08:50 | ER Report ---
History and Physical Time Seen By MD: 08:28 Hx. of Stated Complaint: PT PRESENTS WITH HX OF HTIS MORNING HAVING A BIT OF PEANUT BUTTER AND HIS HEART RATE WENT UP TO 160. PT APPEARS VERY DROWSY AT THIS TIME, STATES HE DID NOT SLEEP WELL LAST NIGHT. HX OF PARANOIA DRINKING AT THE ATHENS LAST NIGHT HPI/ROS CHIEF COMPLAINT: palpitations HISTORY OF PRESENT ILLNESS: pt reports that he ate peanut butter this morning and developed fast heart rate. He states his HR was 160; denies cp, sob, n/v/ap/marie at this time. Admits to etoh last night x 5 shots. Denies SI/HI. Has had intermittent palpiations in the past. Upon EMS arrival, HR 108. Does not still feel palpitations. Brings in peanut butter because he feels that it may have had something in it that caused his symptoms. Pt denies change in med dose (admits only to taking seroquel), denies drug use, denies supplements. REVIEW OF SYSTEMS: Constitutional: No fever, no chills. Eyes: No discharge. ENT: No sore throat. Cardiovascular: No chest pain, no palpitations. Respiratory: No cough, no shortness of breath. Gastrointestinal: No abdominal pain, no vomiting. Genitourinary: No hematuria. Musculoskeletal: No back pain. Skin: No rashes. Neurological: No headache. Remainder of the 14 system rev: Yes Allergies: Coded Allergies: No Known Drug Allergies (Unverified , 02/21/18) Home Meds Reported Medications Lorazepam (ATIVAN) 2 Mg Tablet, 2 MG PO BID 02/18/18 Cholecalciferol (Vitamin D3) (VITAMIN D3) 1,000 Unit Tablet, 1000 UNIT PO QDAY, TAB 02/09/18 Multivits,Th W-Fe,Other Min (THERA-M) 1 Each Tablet, 1 EACH PO QDAY 02/09/18 Quetiapine Fumarate (SEROQUEL) 100 Mg Tablet, 200 MG PO QHS TAKE TWO TABLETS (200 MG) AT BEDTIME. 02/09/18 Discontinued Reported Medications Nicotine Polacrilex (NICORETTE) 2 Mg Gum, 2 MG BC Q1-2H PRN for NICOTINE REPL ACEMENT, GUM 02/09/18 [place]-3/Dha/Epa/Fish Oil (FISH OIL 500 MG SOFTGEL) 1 Each Capsule, 1000 MG PO QDAY, CAPSULE 02/09/18 Reviewed Nurses Notes: Yes Old Medical Records Reviewed: Yes Hx Smoking: Yes Smoking Status: Current: Every Day Smoker Exposure to Second Hand Smoke?: No Hx Substance Use Disorder: No Hx Alcohol Use: Yes Constitutional Vital Sign - Last 24 Hours 02/21/18 08:14 Temp 97.8 Pulse 92 Resp 16 B/P (MAP) 112/83 Pulse Ox 92 O2 Delivery Room Air Physical Exam General Appearance: The patient is alert, has no immediate need for airway protection and no signs of toxicity. He appears sleepy. Eyes: Pupils equal and round no pallor or injection. ENT, Mouth: Mucous membranes are moist. Respiratory: There are no retractions, lungs are clear to auscultation. Cardiovascular: Regular rate and rhythm. no m/r/g. No carotid bruit Gastrointestinal: Abdomen is soft and non tender, no masses, bowel sounds normal. Neurological: awake, oriented x 3, moves all ext. Skin: Warm and dry, no rashes. Musculoskeletal: Extremities are nontender, nonswollen and have full range of motion. pulses = ext bilaterally DIFFERENTIAL DIAGNOSIS: After history and physical exam differential diagnosis was considered for electrolyte d/o, acs, pe, infection, acs, drug intox/w/d, or other etiology of symtpoms Medical Decision Making EKG/Imaging EKG Interpretation 12 lead EKG: Rhythm: Normal sinus rhythm [place]: Normal QRS: Normal ST segments: Normal Monitor Interpretation: Normal Sinus Rhythm ED Course/Re-evaluation ED Course Patient presents with report of palpitations. He reports heart rate of 160 that he took by his own pulse. There are no signs in the ED upon monitoring of dysrhythmia. While I considered the differential as above, the EKG shows no prolonged QT or abnormalities that would indicate serious electrolyte disorder. Patient does admit to alcohol intake last night that is more than his usual and symptoms may have been due to this. However, at this time he is asymptomatic with normal glucose and normal EKG as well as unremarkable exam. No evidence of emergent etiology at this time recommend follow-up with primary physician. Decision to Disposition Date: Feb 21, 2018 Decision to Disposition Time: 08:47 Depart Departure Latest Vital Signs Vital Signs Date Time Temp Pulse Resp B/P (MAP) Pulse Ox O2 Delivery O2 Flow Rate FiO2 02/21/18 08:14 97.8 92 16 112/83 92 Room Air Impression: Primary Impression: Palpitations Condition: Improved Disposition: HOME OR SELF-CARE Patient Instructions: Palpitations (ED) Additional Instructions: Return if unable to control pulse with the techniques we discussed, uncontrolled symptoms, concerns about your safety, or other concerns. LIBORIO DEXTER MD Feb 21, 2018 08:50
== END 2018-02-21 09:51 | disposition home or self-care (01) ==
LOC: ER 08:28
DX: R00.2 Palpitations (principal); F17.210 Nicotine dependence, cigarettes, uncomplicated
CPT/HCPCS: 36416; 82948; 93005; 99283

== ENCOUNTER → 2018-02-21 | Outpatient (CLI) | payer MEDICAID ==
[~2018-02-21] MED LIST changes: +LORA-1458 PO
== END ==
LOC: AMB 08:01
PROVIDERS: ATTEND Nurse Practitioner
DX: F22 Delusional disorders (principal)
CPT/HCPCS: A0425; A0429

== ENCOUNTER 2018-02-27 22:54 | Emergency (ER) | payer MEDICAID ==
[2018-02-27 22:54] VITALS: BP 138/74
--- NOTE | 2018-02-27 22:56 | ER Report ---
History and Physical Time Seen By MD: 22:57 HPI/ROS CHIEF COMPLAINT: Acute psychosis HISTORY OF PRESENT ILLNESS: 32-year-old male presents to the ER by EMS, concerned about what he drank earlier. Patient drank some alcohol. He is wondering if it is contaminated. Patient has likely undiagnosed paranoid schizophrenia. He's had numerous ER visits. He is on Seroquel at bedtime, but taking a very low dose. Patient was admitted to behavioral health services approximate 3 weeks ago. Patient seems to fail to follow-up with outpatient counselors. He stated speak with psychiatrist and had his medications adjusted. Patient states he had 3 drinks of alcohol earlier this evening. REVIEW OF SYSTEMS: Respiratory: No cough, no dyspnea. Cardiovascular: No chest pain, no palpitations. Gastrointestinal: No vomiting, no abdominal pain. Musculoskeletal: No back pain. Allergies: Coded Allergies: No Known Drug Allergies (Unverified , 02/27/18) Home Meds Reported Medications Lorazepam (ATIVAN) 2 Mg Tablet, 2 MG PO BID 02/18/18 Cholecalciferol (Vitamin D3) (VITAMIN D3) 1,000 Unit Tablet, 1000 UNIT PO QDAY, TAB 02/09/18 Multivits,Th W-Fe,Other Min (THERA-M) 1 Each Tablet, 1 EACH PO QDAY 02/09/18 Quetiapine Fumarate (SEROQUEL) 100 Mg Tablet, 200 MG PO QHS TAKE TWO TABLETS (200 MG) AT BEDTIME. 02/09/18 Reviewed Nurses Notes: Yes Old Medical Records Reviewed: Yes Hx Smoking: Yes Smoking Status: Current: Every Day Smoker Exposure to Second Hand Smoke?: No Hx Substance Use Disorder: No Hx Alcohol Use: Yes Constitutional Vital Sign - Last 24 Hours 02/27/18 22:54 Temp 98.3 Pulse 77 Resp 24 B/P (MAP) 138/74 Pulse Ox 91 O2 Delivery Room Air Physical Exam General Appearance: The patient is alert, has no immediate need for airway protection and no current signs of toxicity. Restless, agitated hypervigilant rubbing hands overhead. HEENT: Pupils equal and round no injection. Oropharynx no redness or exudate, mucous membranes are moist Respiratory: Chest is non tender, lungs are clear to auscultation. Cardiac: regular rate and rhythm Gastrointestinal: Abdomen is soft and non tender, no masses, bowel sounds normal. Musculoskeletal: Neck: Neck is supple and non tender. Extremities have full range of motion and are non tender. Skin: No rashes or lesions. DIFFERENTIAL DIAGNOSIS: After history and physical exam differential diagnosis was considered for depression including functional and major depression, situational depression, medication side effect, paranoid schizophrenia, drugs and alcohol abuse. Medical Decision Making Data Points Laboratory Hematology Test 02/27/18 23:51 Serum Alcohol < 10 mg/dl Chemistry Test 02/27/18 23:51 Serum Alcohol < 10 mg/dl Toxicology Test 02/27/18 23:51 Serum Alcohol < 10 mg/dl ED Course/Re-evaluation ED Course Patient was admitted to an examination room. H&P was done. The differential diagnoses was considered. On clinical examination, the patient appears with gross paranoid schizophrenia. He is on medication. I do not think his doses [place]. He is failed to follow-up with behavioral health as recommended on numerous previous ER visits. He is medicated for his acute anxiety with Ativan 2 mg by mouth. After an observation period. A blood alcohol was performed which was negative. 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 The nares feeling much better. He is discharged home and advised to follow-up with mental health once again. Decision to Disposition Date: Feb 28, 2018 Decision to Disposition Time: 00:05 Depart Departure Latest Vital Signs Vital Signs Date Time Temp Pulse Resp B/P (MAP) Pulse Ox O2 Delivery O2 Flow Rate FiO2 02/27/18 22:54 98.3 77 24 138/74 91 Room Air Impression: Primary Impression: Anxiety Additional Impression: Schizophrenia Condition: Improved Disposition: HOME OR SELF-CARE Patient Instructions: Anxiety (ED) Additional Instructions: Follow-up with mental health as planned Problem Qualifiers Additional Impression: Schizophrenia Schizophrenia type: paranoid schizophrenia Qualified Codes: F20.0 - Para noid schizophrenia MAIKMARCELINOSanjay Bello DO Feb 27, 2018 22:56
[2018-02-27] MEDS ORDERED: LORazepam 1 MG TAB PO ONE (23:05)
== END 2018-02-28 00:28 | disposition home or self-care (01) ==
LOC: ER 22:58
DX: F41.9 Anxiety disorder, unspecified (principal); F20.0 Paranoid schizophrenia; F17.210 Nicotine dependence, cigarettes, uncomplicated
CPT/HCPCS: 36415; 99283; G0480; 80320

== ENCOUNTER → 2018-02-27 | Outpatient (CLI) | payer MEDICAID | LOC: AMB 22:26 | PROVIDERS: ATTEND Nurse Practitioner | DX: F41.9 Anxiety disorder, unspecified (principal); F22 Delusional disorders | CPT/HCPCS: A0425; A0429 ==

== ENCOUNTER 2018-03-03 00:47 | Emergency (ER) | payer MEDICAID ==
--- NOTE | 2018-03-03 01:00 | ER Report ---
History and Physical Time Seen By MD: 01:02 HPI/SAMARA CHIEF COMPLAINT: worried he is poisoned and heart racing and then later too slow. HISTORY OF PRESENT ILLNESS: This is a 32 year old male. He has a history of coming to the ER with anxiety. He also has paranoid schizophrenia. He smoked a cigarette and then felt weird. He thinks he is being poisoned, but does not know with what. He was feeling fine earlier today. He wants to be tested, but cannot say what for. He has no thought of harming himself or others. Extremely anxious, at times in a panic, grabbing for me or nurse, saying he needs to have me listen with my stethoscope right away. Is also using a new tobacco product the last two days. No cough, No shortness of breath, No chest pain, No nausea or vomiting, normal bowel and bladder function, no headache, he does feel dizzy, no mu sculoskeletal pain, no weakness, he did get numbness in both hands and lips for about 5 minutes. Allergies: Coded Allergies: No Known Drug Allergies (Unverified , 02/27/18) Home Meds Reported Medications Lorazepam (ATIVAN) 2 Mg Tablet, 2 MG PO BID 02/18/18 Cholecalciferol (Vitamin D3) (VITAMIN D3) 1,000 Unit Tablet, 1000 UNIT PO QDAY, TAB 02/09/18 Multivits,Th W-Fe,Other Min (THERA-M) 1 Each Tablet, 1 EACH PO QDAY 02/09/18 Quetiapine Fumarate (SEROQUEL) 100 Mg Tablet, 200 MG PO QHS TAKE TWO TABLETS (200 MG) AT BEDTIME. 02/09/18 Reviewed Nurses Notes: Yes Hx Smoking: Yes Smoking Status: Current: Every Day Smoker Exposure to Second Hand Smoke?: No Hx Substance Use Disorder: No Hx Alcohol Use: Yes Constitutional Vital Sign - Last 24 Hours 03/03/18 03/03/18 03/03/18 03/03/18 00:55 00:56 01:00 01:03 Temp 98.1 Pulse 78 Resp 18 B/P (MAP) 142/100 (114) 158/100 130/77 (94) 102/87 (92) Pulse Ox 98 O2 Delivery Room Air 03/03/18 03/03/18 03/03/18 03/03/18 01:17 01:47 02:17 02:22 Pulse 69 61 67 Resp 33 31 23 Pulse Ox 98 93 98 96 Physical Exam General Appearance: Alert, extremely anxious, writhing around on the bed with panic. Eyes: Pupils equal and round no injection. ENT: Normal oral mucosa. Moist mucous membranes. Tympanic membranes are normal. Neck: Neck is supple and non tender. Respiratory: Chest is non tender, lungs are clear to auscultation. Cardiac: regular rate and rhythm Gastrointestinal: Abdomen is soft and non tender, no masses, bowel sounds normal. Musculoskeletal: Extremities have full range of motion. Non tender. Skin: No rashes or lesions. DIFFERENTIAL DIAGNOSIS: After history and physical exam differential diagnosis was considered for anxiety, paranoia. Medical Decision Making Data Points Result Diagram: 03/03/18 0149 03/03/189 Laboratory Hematology Test 03/03/18 01:28 03/03/18 01:49 Urine Color Yellow Urine Clarity Clear Urine pH 6.0 pH (4.8-9.5) Urine Specific [place] 1.024 Urine Protein Negative mg/dL (NEGATIVE) Urine Glucose (UA) Negative mg/dL (NEGATIVE) Urine Ketones Trace mg/dL (NEGATIVE) Urine Blood Negative (NEGATIVE) Urine Nitrite Negative (NEGATIVE) Urine Bilirubin Negative (NEGATIVE) Urine Urobilinogen 4.0 mg/dL (0.2-1.9) Urine Leukocyte Esterase Negative (NEGATIVE) Urine RBC <1 /HPF (0-2/HPF) Urine WBC 2 /HPF (0-5/HPF) Urine Squamous Epithelial Cells None /LPF (</=FEW) Urine Transitional Epithelial Cells Few /LPF (NONE-FEW) Urine Bacteria Few /HPF (NONE-FEW) Urine Mucus Few /HPF (NONE-FEW) Urine Opiates Screen Negative Urine Barbiturates Screen Negative Ur Tricyclic Antidepressants Screen Negative Urine Phencyclidine Screen Negative Urine Amphetamines Screen Negative Urine Benzodiazepines Screen Negative Urine Cocaine Screen Negative Urine Cannabinoids Screen Negative Red Blood Count 5.62 M/uL (4.00-5.60) Mean Corpuscular Volume 88.8 fL (80.0-96.0) Mean Corpuscular Hemoglobin 30.9 pg (26.0-33.0) Mean Corpuscular Hemoglobin Concent 34.8 g/dL (32.0-36.0) Red Cell Distribution Width 13.5 % (11.5-14.5) Mean Platelet Volume 10.9 fL (7.2-11.1) Neutrophils (%) (Auto) 61.8 % (39.4-72.5) Lymphocytes (%) (Auto) 25.2 % (17.6-49.6) Monocytes (%) (Auto) 7.8 % (4.1-12.4) Eosinophils (%) (Auto) 4.5 % (0.4-6.7) Basophils (%) (Auto) 0.7 % (0.3-1.4) Nucleated RBC Relative Count (auto) 0.0 /100WBC Neutrophils # (Auto) 5.9 K/uL (2.0-7.4) Lymphocytes # (Auto) 2.4 K/uL (1.3-3.6) Monocytes # (Auto) 0.8 K/uL (0.3-1.0) Eosinophils # (Auto) 0.4 K/uL (0.0-0.5) Basophils # (Auto) 0.1 K/uL (0.0-0.1) Nucleated RBC Absolute Count (auto) 0.00 K/uL Sodium Level 139 mmol/L (137-145) Potassium Level 3.1 mmol/L (3.5-5.0) Chloride Level 107 mmol/L (98-107) Carbon Dioxide Level 22 mmol/L (22-30) Blood Urea Nitrogen 14 mg/dl (9-21) Creatinine 0.90 mg/dl (0.66-1.25) Glomerular Filtration Rate Calc > 60.0 Random Glucose 125 mg/dl (75-110) Calcium Level 9.7 mg/dl (8.4-10.2) Total Bilirubin 0.6 mg/dl (0.2-1.3) Aspartate Amino Transf (AST/SGOT) 18 U/L (0-35) Alanine Aminotransferase (ALT/SGPT) 34 U/L (0-56) Alkaline Phosphatase 66 U/L (0-126) Total Protein 6.8 g/dl (6.3-8.2) Albumin 4.1 g/dl (3.5-5.0) Salicylates Level < 10 mg/L Salicylate Last Dose Date unk Acetaminophen Level < 10 ug/ml Serum Alcohol < 10 mg/dl Chemistry Test 03/03/18 01:28 03/03/18 01:49 Urine Color Yellow Urine Clarity Clear Urine pH 6.0 pH (4.8-9.5) Urine Specific [place] 1.024 Urine Protein Negative mg/dL (NEGATIVE) Urine Glucose (UA) Negative mg/dL (NEGATIVE) Urine Ketones Trace mg/dL (NEGATIVE) Urine Blood Negative (NEGATIVE) Urine Nitrite Negative (NEGATIVE) Urine Bilirubin Negative (NEGATIVE) Urine Urobilinogen 4.0 mg/dL (0.2-1.9) Urine Leukocyte Esterase Negative (NEGATIVE) Urine RBC <1 /HPF (0-2/HPF) Urine WBC 2 /HPF (0-5/HPF) Urine Squamous Epithelial Cells None /LPF (</=FEW) Urine Transitional Epithelial Cells Few /LPF (NONE-FEW) Urine Bacteria Few /HPF (NONE-FEW) Urine Mucus Few /HPF (NONE-FEW) Urine Opiates Screen Negative Urine Barbiturates Screen Negative Ur Tricyclic Antidepressants Screen Negative Urine Phencyclidine Screen Negative Urine Amphetamines Screen Negative Urine Benzodiazepines Screen Negative Urine Cocaine Screen Negative Urine Cannabinoids Screen Negative White Blood Count 9.6 k/uL (4.5-11.0) Red Blood Count 5.62 M/uL (4.00-5.60) Hemoglobin 17.4 g/dL (14.0-18.0) Hematocrit 50.0 % (42.0-52.0) Mean Corpuscular Volume 88.8 fL (80.0-96.0) Mean Corpuscular Hemoglobin 30.9 pg (26.0-33.0) Mean Corpuscular Hemoglobin Concent 34.8 g/dL (32.0-36.0) Red Cell Distribution Width 13.5 % (11.5-14.5) Platelet Count 174 K/uL (150-450) Mean Platelet Volume 10.9 fL (7.2-11.1) Neutrophils (%) (Auto) 61.8 % (39.4-72.5) Lymphocytes (%) (Auto) 25.2 % (17.6-49.6) Monocytes (%) (Auto) 7.8 % (4.1-12.4) Eosinophils (%) (Auto) 4.5 % (0.4-6.7) Basophils (%) (Auto) 0.7 % (0.3-1.4) Nucleated RBC Relative Count (auto) 0.0 /100WBC Neutrophils # (Auto) 5.9 K/uL (2.0-7.4) Lymphocytes # (Auto) 2.4 K/uL (1.3-3.6) Monocytes # (Auto) 0.8 K/uL (0.3-1.0) Eosinophils # (Auto) 0.4 K/uL (0.0-0.5) Basophils # (Auto) 0.1 K/uL (0.0-0.1) Nucleated RBC Absolute Count (auto) 0.00 K/uL Glomerular Filtration Rate Calc > 60.0 Calcium Level 9.7 mg/dl (8.4-10.2) Total Bilirubin 0.6 mg/dl (0.2-1.3) Aspartate Amino Transf (AST/SGOT) 18 U/L (0-35) Alanine Aminotransferase (ALT/SGPT) 34 U/L (0-56) Alkaline Phosphatase 66 U/L (0-126) Total Protein 6.8 g/dl (6.3-8.2) Albumin 4.1 g/dl (3.5-5.0) Salicylates Level < 10 mg/L Salicylate Last Dose Date unk Acetaminophen Level < 10 ug/ml Serum Alcohol < 10 mg/dl Toxicology Test 03/03/18 01:28 03/03/18 01:49 Urine Opiates Screen Negative Urine Barbiturates Screen Negative Ur Tricyclic Antidepressants Screen Negative Urine Phencyclidine Screen Negative Urine Amphetamines Screen Negative Urine Benzodiazepines Screen Negative Urine Cocaine Screen Negative Urine Cannabinoids Screen Negative Salicylates Level < 10 mg/L Salicylate Last Dose Date unk Acetaminophen Level < 10 ug/ml Serum Alcohol < 10 mg/dl Urinalysis Test 03/03/18 01:28 Urine Color Yellow Urine Clarity Clear Urine pH 6.0 pH (4.8-9.5) Urine Specific [place] 1.024 Urine Protein Negative mg/dL (NEGATIVE) Urine Glucose (UA) Negative mg/dL (NEGATIVE) Urine Ketones Trace mg/dL (NEGATIVE) Urine Blood Negative (NEGATIVE) Urine Nitrite Negative (NEGATIVE) Urine Bilirubin Negative (NEGATIVE) Urine Urobilinogen 4.0 mg/dL (0.2-1.9) Urine Leukocyte Esterase Negative (NEGATIVE) Urine RBC <1 /HPF (0-2/HPF) Urine WBC 2 /HPF (0-5/HPF) Urine Squamous Epithelial Cells None /LPF (</=FEW) Urine Transitional Epithelial Cells Few /LPF (NONE-FEW) Urine Bacteria Few /HPF (NONE-FEW) Urine Mucus Few /HPF (NONE-FEW) EKG/Imaging EKG Interpretation 12 lead EKG: Rhythm: normal sinus rhythm, rate 67 [place]: normal QRS: normal ST segments: normal ED Course/Re-evaluation ED Course Labs unremarkable. EKG negative. Heart monitor and pulse ox normal. The patient was given Ativan 2mg oral dose. Long talk with the patient. Offered him admission to behavioral health, he declined. He is not a danger to himself or others at this point. He discussed many fears with me. Delusions of people out to get him, going through multiple cigarettes in a pack and discarding them because they do not smell or look right, etc. He knows he can return if needed for further help with this. Recommended smoking cessation and not using the new tobacco product anymore. Decision to Disposition Date: Mar 03, 2018 Decision to Disposition Time: 02:41 Depart Departure Latest Vital Signs Vital Signs Date Time Temp Pulse Resp B/P (MAP) Pulse Ox O2 Delivery O2 Flow Rate FiO2 03/03/18 02:22 67 23 96 03/03/18 01:03 102/87 (92) 03/03/18 00:56 98.1 Room Air Impression: Primary Impression: Schizophrenia Condition: Improved Disposition: HOME OR SELF-CARE Patient Instructions: Schizophrenia (ED) Additional Instructions: Go home and rest. Stop smoking as we discussed and avoid other stimulants. Follow-up with your counseling and psychiatric appointments as planned. You can always return to the ER for admission to behavioral health for treatment if you change your mind. Problem Qualifiers Primary Impression: Schizophrenia Schizophrenia type: paranoid schizophrenia Qualified Codes: F20.0 - Paranoid schizophrenia ANNA CARDOZA MD Mar 03, 2018 01:00
[2018-03-03 01:03] VITALS: BP 102/87
[2018-03-03] MEDS ORDERED: LORazepam 1 MG TAB PO ONE (01:20)
--- NOTE | 2018-03-03 01:52 | EKG ---
FACILITY: [facility] [place] PATIENT NAME: ELAINA WAGNER : [id number] MR: [id number] V: [id number] EXAM DATE: ORDERING PHYSICIAN: ANNA CARDOZA TECHNOLOGIST: JOON Test Reason : PALPITATIONS Blood Pressure : / mmHG Vent. Rate : 067 BPM Atrial Rate : 067 BPM P-R Int : 162 ms QRS Dur : 106 ms QT Int : 398 ms P-R-T Axes : 052 041 047 degrees QTc Int : 420 ms Normal sinus rhythm with sinus arrhythmia Normal ECG When compared with ECG of 03-MAR-2018 01:37, No significant change was found Confirmed by VANESA GARCÍA ([id number]) on 03/03/2018 6:37:41 AM Referred By: Confirmed By:VANESA GARCÍA
[2018-03-03 01:56] LABS: PLATELET COUNT, AUTOMATED 174 K/uL (150-450)
== END 2018-03-03 02:55 | disposition home or self-care (01) ==
LOC: ER 01:28
DX: F20.0 Paranoid schizophrenia (principal); I49.9 Cardiac arrhythmia, unspecified; F17.210 Nicotine dependence, cigarettes, uncomplicated
CPT/HCPCS: 36415; 80305; 81001; 85025; 93005; 99283; G0480; 80320; 80329; 82040; 82247; 82310; 82374; 82435; 82565; 82947; 84075; 84132; 84155; 84295; 84450; 84460; 84520

== ENCOUNTER 2018-03-06 01:27 | Emergency (ER) | payer MEDICAID ==
[~2018-03-06 01:27] MED LIST changes: -HYDR-4225 PO
--- NOTE | 2018-03-06 01:34 | ER Report ---
History and Physical Time Seen By MD: 01:42 HPI/ROS CHIEF COMPLAINT: Shortness of breath and tachycardia HISTORY OF PRESENT ILLNESS: This is a 32-year-old male. History of paranoid schizophrenia and anxiety with panic attacks. He was at the bar, had several drinks, asked some people for a ride home, stating they looked at them funny and then left. He states the police showed up and he worried that the people called the police on him even though he hadn't done anything wrong. He felt his heart racing and felt short of breath so he thought he was dying and asked to be brought to the hospital. EMS arrived and found him to have normal oxygen saturations, normal heart rate, and evidence of anxiety. The patient states that he had some numbness in his hands as well. He felt a little dizzy. He is feeling better now. He has not taken his Seroquel yet tonight. He has an appointment with psychiatry in 2 days. He talks about worrying that people around the community are out to get him, that he is having people following him, he is worried about several people that live near him that may be gang members are from a [employer]. Allergies: Coded Allergies: No Known Drug Allergies (Unverified , 02/27/18) Home Meds Reported Medications Lorazepam (ATIVAN) 2 Mg Tablet, 2 MG PO BID 02/18/18 Cholecalciferol (Vitamin D3) (VITAMIN D3) 1,000 Unit Tablet, 1000 UNIT PO QDAY, TAB 02/09/18 Multivits,Th W-Fe,Other Min (THERA-M) 1 Each Tablet, 1 EACH PO QDAY 02/09/18 Quetiapine Fumarate (SEROQUEL) 100 Mg Tablet, 200 MG PO QHS TAKE TWO TABLETS (200 MG) AT BEDTIME. 02/09/18 Reviewed Nurses Notes: Yes Hx Smoking: Yes Smoking Status: Current: Every Day Smoker Exposure to Second Hand Smoke?: No Hx Substance Use Disorder: No Hx Alcohol Use: Yes Constitutional Vital Sign - Last 24 Hours 03/06/18 03/06/18 03/06/18 03/06/18 01:27 01:30 01:34 01:57 Temp 97.9 Pulse ??? 79 85 Resp 19 B/P (MAP) 131/82 131/82 (98) Pulse Ox 95 95 O2 Delivery Room Air 03/06/18 03/06/18 02:00 02:18 Pulse 78 B/P (MAP) 125/83 (97) Pulse Ox 96 Physical Exam General Appearance: The patient is alert, he is anxious. Appears slightly intoxicated. Eyes: Pupils equal and round with mild injection. ENT: Normal oral mucosa. Moist mucous membranes. Neck: Neck is supple and non tender. Respiratory: Chest is non tender, lungs are clear to auscultation. Cardiac: regular rate and rhythm Gastrointestinal: Abdomen is soft and non tender, no masses, bowel sounds normal. Musculoskeletal: Extremities have full range of motion. Skin: No rashes or lesions. DIFFERENTIAL DIAGNOSIS: After history and physical exam differential diagnosis was considered for anxiety attack and paranoia Medical Decision Making ED Course/Re-evaluation ED Course Recommend the patient return home, take his Seroquel, and go to bed. Recommended he follow up with psychiatry as planned. Decision to Disposition Date: Mar 06, 2018 Decision to Disposition Time: 02:09 Depart Departure Latest Vital Signs Vital Signs Date Time Temp Pulse Resp B/P (MAP) Pulse Ox O2 Delivery O2 Flow Rate FiO2 03/06/18 02:18 78 96 03/06/18 02:00 125/83 (97) 03/06/18 01:30 97.9 19 Room Air Impression: Primary Impression: Anxiety attack Additional Impression: Schizophrenia Condition: Improved Disposition: HOME OR SELF-CARE Patient Instructions: Panic Attack (ED), Schizophrenia (ED) Additional Instructions: Keep your appointment with the psychiatrist on the 6th. Take your Seroquel once you get home and try to get some rest. Problem Qualifiers Additional Impression: Schizophrenia Schizophrenia type: paranoid schizophrenia Qualified Codes: F20.0 - Paranoid schizophrenia ANNA CARDOZA MD Mar 06, 2018 01:34
[2018-03-06 02:00] VITALS: BP 125/83
== END 2018-03-06 02:15 | disposition home or self-care (01) ==
LOC: ER 01:39
DX: F41.9 Anxiety disorder, unspecified (principal); F20.0 Paranoid schizophrenia
CPT/HCPCS: 99281

== ENCOUNTER → 2018-03-06 | Outpatient (CLI) | payer MEDICAID ==
[~2018-03-06] MED LIST changes: +HYDR-4225 PO
== END ==
LOC: AMB 01:15
PROVIDERS: ATTEND Nurse Practitioner
DX: R00.0 Tachycardia, unspecified (principal); R06.00 Dyspnea, unspecified; F41.9 Anxiety disorder, unspecified
CPT/HCPCS: A0425; A0429

== ENCOUNTER 2018-03-10 17:38 | Emergency (ER) | payer MEDICAID ==
[~2018-03-10 17:38] MED LIST changes: -HYDR-4225 PO
[2018-03-10 17:44] VITALS: BP 137/89
--- NOTE | 2018-03-10 17:45 | ER Report ---
History and Physical Time Seen By MD: 17:45 Hx. of Stated Complaint: PANIC ATTACK HPI/ROS CHIEF COMPLAINT: Anxiety attack HISTORY OF PRESENT ILLNESS: 32-year-old male patient presents to emergency room with complaint of an anxiety attack. Patient states that he was at his house and felt as if he is unable to breathe. He stated that his heart rate was elevated to 155. 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 His vital signs were normal but the patient did request to be seen in the emergency room. Patient states that he's been having horrible anxiety recently. He states that he has also been out of his Seroquel. He denies having any suicidal ideation. REVIEW OF SYSTEMS: Respiratory: No cough, no dyspnea. Cardiovascular: No chest pain, no palpitations. Gastrointestinal: No vomiting, no abdominal pain. Musculoskeletal: No back pain. Allergies: Coded Allergies: No Known Drug Allergies (Unverified , 02/27/18) Home Meds Active Scripts Quetiapine Fumarate (SEROQUEL) 100 Mg Tablet, 200 MG PO QHS, #60 TAB Prov:ANALIA GUEVARA [facility] 03/10/18 Hydroxyzine Hcl (HYDROXYZINE HCL) 25 Mg Tablet, 25 MG PO Q6H PRN for ANXIETY, #30 TAB Prov:ANALIA GUEVARA [facility] 03/10/18 Reported Medications Lorazepam (ATIVAN) 2 Mg Tablet, 2 MG PO BID 02/18/18 Cholecalciferol (Vitamin D3) (VITAMIN D3) 1,000 Unit Tablet, 1000 UNIT PO QDAY, TAB 02/09/18 Multivits,Th W-Fe,Other Min (THERA-M) 1 Each Tablet, 1 EACH PO QDAY 02/09/18 Quetiapine Fumarate (SEROQUEL) 100 Mg Tablet, 200 MG PO QHS TAKE TWO TABLETS (200 MG) AT BEDTIME. 02/09/18 Past Medical/Surgical History Patient has a past medical history of anxiety, paranoia, psychoses. Patient denies any pertinent surgical history. Unable To Obtain Past Medical: Unable to Obtain/Update Reviewed Nurses Notes: Yes Hx Smoking: Yes Smoking Status: Current: Every Day Smoker Exposure to Second Hand Smoke?: No Hx Substance Use Disorder: No Hx Alcohol Use: Yes Constitutional Vital Sign - Last 24 Hours 03/10/18 17:44 Pulse 98 Resp 20 B/P (MAP) 137/89 Pulse Ox 96 O2 Delivery Room Air Physical Exam General Appearance: The patient is alert, has no immediate need for airway protection and no current signs of toxicity. Respiratory: Chest is non tender, lungs are clear to auscultation. Cardiac: regular rate and rhythm Gastrointestinal: Abdomen is soft and non tender, no masses, bowel sounds norm al. Musculoskeletal: Neck: Neck is supple and non tender. Extremities have full range of motion and are non tender. Skin: No rashes or lesions. Psych: Rate of speech is appropriate DIFFERENTIAL DIAGNOSIS: After history and physical exam differential diagnosis was considered for anxiety, paranoia, attention seeking behaviors. Medical Decision Making ED Course/Re-evaluation ED Course Patient was admitted to an exam room, history and physical were obtained. Dif ferential diagnoses were considered. On examination lungs are clear, heart is regular. X-rays speech is appropriate and patient was able to maintain good eye contact. Patient was given a dose of hydroxyzine. On reevaluation patient states that he did feel better. I discussed the case with Dr. Hollins. Dr. Hollins stated that he felt that the patient wanted to go up that he would be willing to admit. Recommend that I speak with the patient's mother. I did call and speak with the patient's mother. She states that he has been having significant amounts of anxiety recently. She states that he has not been suicidal that she is aware of. I spoke with patient, we discussed admission to behavioral health. Patient stated that he did not want to be admitted to behavioral health. We will go ahead and give him a prescription of his Seroquel, 100 mg 2 tabs by mouth daily at bedtime 30 days. We will then give him a limited supply of hydroxyzine and have him follow-up with [facility]. Patient verbalized understanding and agreement with plan. Decision to Disposition Date: Mar 10, 2018 Decision to Disposition Time: 19:23 Depart Departure Latest Vital Signs Vital Signs Date Time Temp Pulse Resp B/P (MAP) Pulse Ox O2 Delivery O2 Flow Rate FiO2 03/10/18 17:44 98 20 137/89 96 Room Air Impression: Primary Impression: Anxiety attack Condition: Improved Disposition: HOME OR SELF-CARE New Scripts Quetiapine Fumarate (SEROQUEL) 100 Mg Tablet 200 MG PO QHS, #60 TAB Prov: ANALIA GUEVARA [facility] 03/10/18 Hydroxyzine Hcl (HYDROXYZINE HCL) 25 Mg Tablet 25 MG PO Q6H PRN for ANXIETY, #30 TAB Prov: ANALIA GUEVARA 03/10/18 Patient Instructions: Anxiety (ED) Additional Instructions: Work on relaxation techniques. Increase exercise. Decrease caffeine in your diet. Follow up with [facility] in the next week. Return to the ER with any emergencies. Continue with your normal medications. I have given you a prescription for Seroquel (Quetiapine) to last you a month till you are able to get in with the Medication management with [facility]. ANALIA GUEVARA Mar 10, 2018 17:45
[2018-03-10] MEDS: hydrOXYzine 25 MG TAB PO ONE (18:40)
[2018-03-10] MEDS ORDERED: QUET100T29 PO (19:21)
[2018-03-10] MEDS ORDERED: HYDR-4225 PO (19:21)
[2018-03-10] MEDS: hydrOXYzine 25 MG TAB TH 2 TAB/BOTTLE PO ONE (19:35)
== END 2018-03-10 19:35 | disposition home or self-care (01) ==
LOC: ER 17:48
DX: F41.9 Anxiety disorder, unspecified (principal)
CPT/HCPCS: 99283

== ENCOUNTER → 2018-03-10 | Outpatient (CLI) | payer MEDICAID ==
[~2018-03-10] MED LIST changes: +HYDR-4225 PO
== END ==
LOC: AMB 17:15
PROVIDERS: ATTEND Nurse Practitioner
DX: F41.9 Anxiety disorder, unspecified (principal); F60.0 Paranoid personality disorder
CPT/HCPCS: A0425; A0429

== ENCOUNTER 2018-03-13 00:58 | Emergency (ER) | payer MEDICAID ==
[~2018-03-13 00:58] MED LIST changes: +HYDR-4225 PO
[2018-03-13 01:00] VITALS: BP 137/84
--- NOTE | 2018-03-13 01:08 | ER Report ---
History and Physical Time Seen By MD: 01:00 HPI/SAMARA CHIEF COMPLAINT: Tachycardia palpitations HISTORY OF PRESENT ILLNESS: 32-year-old male with a mental health problem month likely paranoid schizophrenia noted that his heart rate was 179 on a pulse oximeter. He called 911. EMS brought him in for evaluation. Patient denies c hest pain, shortness of breath or fever. She states he took his psychiatric meds as prescribed REVIEW OF SYSTEMS: Respiratory: No cough, no dyspnea. Cardiovascular: No chest pain, no palpitations. Gastrointestinal: No vomiting, no abdominal pain. Musculoskeletal: No back pain. Allergies: Coded Allergies: No Known Drug Allergies (Unverified , 03/13/18) Home Meds Active Scripts Quetiapine Fumarate (SEROQUEL) 100 Mg Tablet, 200 MG PO QHS, #60 TAB Prov:ANALIA GUEVARA [facility] 03/10/18 Hydroxyzine Hcl (HYDROXYZINE HCL) 25 Mg Tablet, 25 MG PO Q6H PRN for ANXIETY, #30 TAB Prov:ANALIA GUEVARA [facility] 03/10/18 Reported Medications Lorazepam (ATIVAN) 2 Mg Tablet, 2 MG PO BID 02/18/18 Cholecalciferol (Vitamin D3) (VITAMIN D3) 1,000 Unit Tablet, 1000 UNIT PO QDAY, TAB 02/09/18 Multivits,Th W-Fe,Other Min (THERA-M) 1 Each Tablet, 1 EACH PO QDAY 02/09/18 Quetiapine Fumarate (SEROQUEL) 100 Mg Tablet, 200 MG PO QHS TAKE TWO TABLETS (200 MG) AT BEDTIME. 02/09/18 Reviewed Nurses Notes: Yes Old Medical Records Reviewed: Yes Hx Smoking: Yes Smoking Status: Current: Every Day Smoker Exposure to Second Hand Smoke?: No Hx Substance Use Disorder: No Hx Alcohol Use: Yes Constitutional Vital Sign - Last 24 Hours 03/13/18 03/13/18 03/13/18 03/13/18 01:00 01:03 01:08 01:13 Temp 97.5 Pulse 86 80 81 76 Resp 24 B/P (MAP) 137/84 Pulse Ox 90 92 92 95 O2 Delivery Room Air 03/13/18 01:18 Pulse 73 Pulse Ox 91 Physical Exam Vital signs stable, afebrile, pulse ox normal General Appearance: The patient is alert, has no immediate need for airway protection and no current signs of toxicity. No acute distress Eyes: Pupils equal and round no injection. Respiratory: Chest is non tender, lungs are clear to auscultation. Cardiac: regular rate and rhythm Gastrointestinal: Abdomen is soft and non tender, no masses, bowel sounds normal. Musculoskeletal: Neck: Neck is supple and non tender. Extremities have full range of motion and are non tender. Skin: No rashes or lesions. DIFFERENTIAL DIAGNOSIS: After history and physical exam differential diagnosis was considered for depression including functional and major depression, situational depression, medication side effect, anxiety, panic attack, paranoid schizophrenia, drugs and alcohol abuse. Medical Decision Making ED Course/Re-evaluation ED Course She was admitted to an examination room by EMS. He was noted to have vital signs that were normal with a normal heart rate. Patient called 911 because his pulse ox meter showed a heart rate of 179. He did not feel ill at the time. He began to have a panic attack. He has been seen in the ER on numerous occasions for palpitations. Metal health disorder, likely paranoid schizophrenia. He's had numerous ER visits over the last several weeks. He's been admitted to [facility]. He was seen here 2 days ago and extensive consultation with [facility] psychiatrist, Dr. Hollins was performed as well as a prolonged consultation with the patient's mother. Patient was provided prescriptions for Seroquel and hydroxyzine. Patient has failed to fill his prescriptions. He was discharged home with limited supplies of take home packs. Patient states his mom was not taken to the pharmacy. He states he is unable to afford a taxi to go to the pharmacy and he is unable to walk to the pharmacy. Patient on arrival tonight has stable vital signs. He appears in no acute distress. He is quite pleasant and cooperative. He is voicing no complaints other than he thought he was tachycardic. On arrival are pulse ox meter shows his heart rate in the 70s and 80s. Patient states he took his Seroquel and his hydroxyzine several hours ago. Decision to Disposition Date: Mar 13, 2018 Decision to Disposition Time: 01:13 Depart Departure Latest Vital Signs Vital Signs Date Time Temp Pulse Resp B/P (MAP) Pulse Ox O2 Delivery O2 Flow Rate FiO2 03/13/18 01:18 73 91 03/13/18 01:00 97.5 24 137/84 Room Air Impression: Primary Impression: Anxiety Additional Impressions: Palpitations Schizophrenia Condition: Improved Disposition: HOME OR SELF-CARE Patient Instructions: Anxiety (ED), Palpitations (ED) Additional Instructions: Take medications as prescribed and follow up with [facility] as advised. Problem Qualifiers Additional Impressions: Schizophrenia Schizophrenia type: paranoid schizophrenia Qualified Codes: F20.0 - Paranoid schizophrenia MARCELINO PLEITEZ DO Mar 13, 2018 01:08
== END 2018-03-13 01:25 | disposition home or self-care (01) ==
LOC: ER 01:07
DX: F41.9 Anxiety disorder, unspecified (principal); R00.2 Palpitations; F20.9 Schizophrenia, unspecified
CPT/HCPCS: 99281

== ENCOUNTER 2018-04-05 04:03 | Emergency (ER) | payer SELFPAY ==
--- NOTE | 2018-04-05 04:10 | ER Report ---
History and Physical Time Seen By MD: 04:03 HPI/SAMARA CHIEF COMPLAINT: palpitations, anxiety HISTORY OF PRESENT ILLNESS: 32-year-old male brought in by EMS complaining of palpitations. Patient states he saw his heart rate on a pulse ox monitor go to 160. Patient's has several previous similar presentations to the emergency dep artment. He has paranoid schizophrenia. He's on Seroquel 200 mg at bedtime plus hydroxyzine. Patient will not fill his prescriptions. He fails to follow- up. He's been previously admitted to [facility]. There is a suspicion that the patient has a restraining order to stay away from the hospital, unless He has a true emergent condition.patient denied is claiming palpitations. Then he looked in the mirror he noted that his eyes were red, which made him feel more anxious. He is also complaining of a dry throat. He states he's been compliant on his psychiatric meds, which she took approximately 2 AM. Patient states he does not do any drugs or alcohol.patient denies suicidal ideation. Patient denies auditory hallucinations. Patient denies visual hallucinations. REVIEW OF SYSTEMS: Respiratory: No cough, no dyspnea. Cardiovascular: as above Gastrointestinal: No vomiting, no abdominal pain. Musculoskeletal: No back pain. Allergies: Coded Allergies: No Known Drug Allergies (Unverified , 03/13/18) Home Meds Active Scripts Quetiapine Fumarate (SEROQUEL) 100 Mg Tablet, 200 MG PO QHS, #60 TAB Prov:ANALIA GUEVARA [facility] 03/10/18 Hydroxyzine Hcl (HYDROXYZINE HCL) 25 Mg Tablet, 25 MG PO Q6H PRN for ANXIETY, #30 TAB Prov:ANALIA GUEVARA [facility] 03/10/18 Reported Medications Lorazepam (ATIVAN) 2 Mg Tablet, 2 MG PO BID 02/18/18 Cholecalciferol (Vitamin D3) (VITAMIN D3) 1,000 Unit Tablet, 1000 UNIT PO QDAY, TAB 02/09/18 Multivits, W-Fe,Other Min (THERA-M) 1 Each Tablet, 1 EACH PO QDAY 02/09/18 Quetiapine Fumarate (SEROQUEL) 100 Mg Tablet, 200 MG PO QHS TAKE TWO TABLETS (200 MG) AT BEDTIME. 02/09/18 Past Medical/Surgical History Suspected paranoid schizophrenia Reviewed Nurses Notes: Yes Old Medical Records Reviewed: Yes Hx Smoking: Yes Smoking Status: Current: Every Day Smoker Exposure to Second Hand Smoke?: No Hx Substance Use Disorder: No Hx Alcohol Use: Yes Constitutional Vital Sign - Last 24 Hours 04/05/18 04:13 Temp 97.4 Pulse 83 Resp 16 B/P (MAP) 119/76 Pulse Ox 97 O2 Delivery Room Air Physical Exam Vital signs stable, afebrile, pulse ox normal General Appearance: The patient is alert, has no immediate need for airway protection and no current signs of toxicity. no acute distress, appears mildly anxious HEENT: Pupils equal and round no injection.TMs normal, oropharynx without redness or exudate Respiratory: Chest is non tender, lungs are clear to auscultation. Cardiac: regular rate and rhythm , no murmur Gastrointestinal: Abdomen is soft and non tender, no masses, bowel sounds normal. Musculoskeletal: Neck: Neck is supple and non tender. Extremities have full range of motion and are non tender. Skin: No rashes or lesions. DIFFERENTIAL DIAGNOSIS: After history and physical exam differential diagnosis was considered for depression including functional and major depression, situational depression, medication side effect,anxiety, panic attack, paranoid schizophrenia drugs and alcohol abuse. Medical Decision Making EKG/Imaging EKG Interpretation 12 lead EK Rhythm: normal sinus rhythmat 83 bpm [place]: normal QRS: normal ST segments: normal, no evidence of ischemia or dysrhythmia ED Course/Re-evaluation ED Course Patient was admitted to an examination room. H&P was done. The differential diagnoses was considered. Patient complaining of a variety of symptoms. His vital signs are stable. He is afebrile. His pulse ox is normal. His EKG shows no evidence of ischemia or palpitations or dysrhythmia. Patient's reassured that he's having anxiety.patient frequently presents with paranoid ideation. On previous occasion. He presented with. He thought his cigarettes were poisoned. On another occasion he thought his alcohol was poisoned. tonight He feels unsafe at home as he usually does. Patient has no signs of an emergency medical condition. He'll be discharged. He is advised to follow-up with his mental health provider and his primary care if unimproved in 3-5 days. Decision to Disposition Date: Apr 05, 2018 Decision to Disposition Time: 04:18 Depart Departure Latest Vital Signs Vital Signs Date Time Temp Pulse Resp B/P (MAP) Pulse Ox O2 Delivery O2 Flow Rate FiO2 04/05/18 04:13 97.4 83 16 119/76 97 Room Air Impression: Primary Impression: Palpitations Additional Impressions: Anxiety attack Paranoid schizophrenia Condition: Improved Disposition: HOME OR SELF-CARE Referrals: GAB SHORT MD, FARRUKH MD Patient Instructions: Anxiety (ED) Additional Instructions: Follow-up with primary care Follow-up with mental health as planned Problem Qualifiers MARCELINO PLEITEZ DO Apr 05, 2018 04:10
[2018-04-05 04:13] VITALS: BP 119/76
--- NOTE | 2018-04-05 05:30 | EKG ---
FACILITY: [facility] PATIENT NAME: ELAINA WAGNER : [id number] MR: [id number] V: [id number] EXAM DATE: ORDERING PHYSICIAN: MARCELINO PLEITEZ TECHNOLOGIST: MELANIE Test Reason : PALPITATIONS Blood Pressure : / mmHG Vent. Rate : 083 BPM Atrial Rate : 083 BPM P-R Int : 160 ms QRS Dur : 108 ms QT Int : 382 ms P-R-T Axes : 068 051 054 degrees QTc Int : 448 ms Normal sinus rhythm Normal ECG When compared with ECG of 03.03.2018 No significant change was found Confirmed by Kavin Soto ([id number]) on 04/05/2018 7:31:29 AM Referred By: Confirmed By:Kavin Jauregui
== END 2018-04-05 04:34 | disposition home or self-care (01) ==
LOC: ER 04:06
DX: R00.2 Palpitations (principal); F41.9 Anxiety disorder, unspecified; F20.0 Paranoid schizophrenia
CPT/HCPCS: 93005; 99283

== ENCOUNTER → 2018-04-05 | Outpatient (CLI) | payer SELFPAY | LOC: AMB 03:53 | PROVIDERS: ATTEND Nurse Practitioner | DX: F41.9 Anxiety disorder, unspecified (principal) | CPT/HCPCS: A0425; A0429 ==

== ENCOUNTER 2018-04-11 02:15 | Emergency (ER) | payer SELFPAY ==
[2018-04-11 02:16] VITALS: BP 126/77
--- NOTE | 2018-04-11 02:20 | ER Report ---
History and Physical Time Seen By MD: 02:18 Hx. of Stated Complaint: PT WORRIED ABOUT HIS HEART "RACING" HPI/ROS CHIEF COMPLAINT: Palpitations, heart racing HISTORY OF PRESENT ILLNESS: 29-year-old male with paranoid schizophrenia and anxiety frequently presents to the ER in the [employer] hours with p alpitations. He called EMS to come out and evaluate him. On arrival, he noted that he had a normal heart rate. Patient requested to come up to the ER for evaluation. He is concerned that someone may be messing with his medications. Patient states he is known into his house. Patient states his mouth very dry. Patient claims he is not ate or drank for 2 days. His mouth does appear dry and gross visualization. Patient's provided a glass water and he readily drinks a large amount of water. Patient states he took his Seroquel at 11:00 like he normally does. Patient states he did not take any of the hydroxyzine. REVIEW OF SYSTEMS: Respiratory: No cough, no dyspnea. Cardiovascular: As above Gastrointestinal: No vomiting, no abdominal pain. Musculoskeletal: No back pain. Allergies: Coded Allergies: No Known Drug Allergies (Unverified , 04/11/18) Home Meds Active Scripts Quetiapine Fumarate (SEROQUEL) 100 Mg Tablet, 200 MG PO QHS, #60 TAB Prov:ANALIA GUEVARA [facility] 03/10/18 Hydroxyzine Hcl (HYDROXYZINE HCL) 25 Mg Tablet, 25 MG PO Q6H PRN for ANXIETY, #30 TAB Prov:ANALIA GUEVARA [facility] 03/10/18 Reported Medications Lorazepam (ATIVAN) 2 Mg Tablet, 2 MG PO BID 02/18/18 Cholecalciferol (Vitamin D3) (VITAMIN D3) 1,000 Unit Tablet, 1000 UNIT PO QDAY, TAB 02/09/18 Multivits,Th W-Fe,Other Min (THERA-M) 1 Each Tablet, 1 EACH PO QDAY 02/09/18 Quetiapine Fumarate (SEROQUEL) 100 Mg Tablet, 200 MG PO QHS TAKE TWO TABLETS (200 MG) AT BEDTIME. 02/09/18 Reviewed Nurses Notes: Yes Old Medical Records Reviewed: Yes Hx Smoking: Yes Smoking Status: Current: Every Day Smoker Exposure to Second Hand Smoke?: No Hx Substance Use Disorder: No Hx Alcohol Use: Yes Constitutional Vital Sign - Last 24 Hours 04/11/18 04/11/18 04/11/18 04/11/18 02:15 02:16 02:20 02:25 Temp 98.3 Pulse 93 90 95 99 Resp 20 B/P (MAP) 126/77 Pulse Ox 94 95 97 O2 Delivery Room Air 04/11/18 02:35 Pulse 89 Pulse Ox 96 Physical Exam Vital signs stable, afebrile, pulse ox normal General Appearance: The patient is alert, has no immediate need for airway protection and no current signs of toxicity. HEENT: Pupils equal and round no injection. Oropharynx without redness, dry membranes Respiratory: Chest is non tender, lungs are clear to auscultation. Cardiac: regular rate and rhythm Gastrointestinal: Abdomen is soft and non tender, no masses, bowel sounds normal. Musculoskeletal: Neck: Neck is supple and non tender. Extremities have full range of motion and are non tender. Skin: No rashes or lesions. DIFFERENTIAL DIAGNOSIS: After history and physical exam differential diagnosis was considered for palpitations, anxiety, panic attack, hallucinations, manic, bipolar disorder Medical Decision Making ED Course/Re-evaluation ED Course Patient was admitted to an examination room. H&P was done. The differential diagnoses was considered. On clinical examination. Patient has stable vital signs and appears in only mild distress. He appears anxious as if he is having a panic attack. Patient denies chest pain, shortness of breath or difficulty breathing. Patient denies suicidal ideation. Patient states she is compliant on his medications. Patient's heart rate is in the 80s and the remainder of his vital signs are unremarkable. Patient's reassured that he is not having a life- threatening reaction. His medical screening examination is completed and he is cleared to follow-up with his mental health providers as well as primary care. Decision to Disposition Date: Apr 11, 2018 Decision to Disposition Time: 02:35 Depart Departure Latest Vital Signs Vital Signs Date Time Temp Pulse Resp B/P (MAP) Pulse Ox O2 Delivery O2 Flow Rate FiO2 04/11/18 02:35 89 96 04/11/18 02:16 98.3 20 126/77 Room Air Impression: Primary Impression: Anxiety attack Additional Impressions: Paranoid schizophrenia Palpitations Condition: Improved Disposition: HOME OR SELF-CARE Patient Instructions: Panic Attack (ED) Additional Instructions: Follow-up with your mental health provider Follow-up with your primary care provider Problem Qualifiers MARCELINO PLEITEZ DO Apr 11, 2018 02:20
== END 2018-04-11 02:56 | disposition home or self-care (01) ==
LOC: ER 02:23
DX: F41.9 Anxiety disorder, unspecified (principal); F20.0 Paranoid schizophrenia; R00.2 Palpitations
CPT/HCPCS: 99281

== ENCOUNTER → 2018-04-11 | Outpatient (CLI) | payer SELFPAY | LOC: AMB 02:01 | PROVIDERS: ATTEND Nurse Practitioner | DX: F41.9 Anxiety disorder, unspecified (principal) | CPT/HCPCS: A0425; A0429 ==

== ENCOUNTER 2018-05-06 20:27 | Emergency (ER) | payer SELFPAY ==
[2018-05-06 20:35] VITALS: BP 126/87
[2018-05-06 21:17] LABS: PLATELET COUNT, AUTOMATED 184 K/uL (150-450)
--- NOTE | 2018-05-06 22:15 | ER Report ---
History and Physical Time Seen By MD: 20:45 Hx. of Stated Complaint: PT WORRIED ABOUT HEART RATE. HPI/ROS CHIEF COMPLAINT: Chest pain and variable heart rate HISTORY OF PRESENT ILLNESS: 32-year-old male presents from home. He took off cab to the emergency department because just before arrival patient felt sharp 2 seconds episode of pain in his left chest. He felt that this was stabbing but did not radiate. This happened a couple times. During this time, patient has a home pulse ox Yazmin which she was checking. He noted that his pulse was ranging from mid 70s to high 80s and was concerned about this. He stated that he even got up and walked around the house and when he came back to sit down his pulse was 115. He is fixated and concern about what could be going on and whether or not this is normal. Patient has had similar symptoms in the past. He states as well that he feels like he may be having a psychosis. When asked what this means, he is he is concerned that the variable heart rate is affecting his head. Patient denies shortness of breath. He denies fevers, vomiting, nausea, change in stool, urinary symptoms. He does complain about itching and various spots including right arm and buttocks, though does not note a rash. He denies medications, supplements, alcohol or drug use. He admits to smoking approximately 4 cigarettes a day and wonders if this has anything to do with it. He also wonders if certain foods affect this. In the past he has presented because he thought peanut butter was making his heart race. Pt denies SI, HI. He is very concerned about his electrolytes and his urine sample, specifically whether it is too concentrated or not. He states that he always wants to make sure he lives very close to the hospital so he has easy access here. REVIEW OF SYSTEMS: Constitutional: No fever, no chills. Eyes: No discharge. ENT: No sore throat. Cardiovascular: above Respiratory: No cough, no shortness of breath. Gastrointestinal: No abdominal pain, no vomiting. Genitourinary: no dysuria Musculoskeletal: No back pain. Skin: No rashes. Neurological: No headache. Remainder of the 14 system rev: Yes Allergies: Coded Allergies: No Known Drug Allergies (Unverified , 05/06/18) Home Meds Active Scripts Quetiapine Fumarate (SEROQUEL) 100 Mg Tablet, 200 MG PO QHS, #60 TAB Prov:ANALIA GUEVARA [employer]ER REROLL TENDER 03/10/18 Hydroxyzine Hcl (HYDROXYZINE HCL) 25 Mg Tablet, 25 MG PO Q6H PRN for ANXIETY, #30 TAB Prov:ANALIA GUEVARA [employer] TENDER 03/10/18 Reported Medications Lorazepam (ATIVAN) 2 Mg Tablet, 2 MG PO BID 02/18/18 Cholecalciferol (Vitamin D3) (VITAMIN D3) 1,000 Unit Tablet, 1000 UNIT PO QDAY, TAB 02/09/18 Multivits,Th W-Fe,Other Min (THERA-M) 1 Each Tablet, 1 EACH PO QDAY 02/09/18 Quetiapine Fumarate (SEROQUEL) 100 Mg Tablet, 200 MG PO QHS TAKE TWO TABLETS (200 MG) AT BEDTIME. 02/09/18 Reviewed Nurses Notes: Yes Old Medical Records Reviewed: Yes Hx Smoking: Yes Smoking Status: Current: Every Day Smoker Exposure to Second Hand Smoke?: No Hx Substance Use Disorder: No Hx Alcohol Use: Yes Constitutional Vital Sign - Last 24 Hours 05/06/18 05/06/18 05/06/18 05/06/18 20:27 20:34 20:35 20:42 Temp 99.0 Pulse ??? 82 91 Resp 14 B/P (MAP) 126/87 (100) 126/87 Pulse Ox 94 99 O2 Delivery Room Air 05/06/18 05/06/18 05/06/18 05/06/18 20:57 21:12 21:27 21:42 Pulse 69 75 75 64 Pulse Ox 96 94 88 89 Physical Exam General Appearance: The patient is alert, has no immediate need for airway protection and no signs of toxicity. Eyes: Pupils equal and round no pallor or injection. ENT, Mouth: Mucous membranes are moist. Respiratory: There are no retractions, lungs are clear to auscultation. Cardiovascular: Regular rate and rhythm. no carotid bruit Gastrointestinal: Abdomen is soft and non tender, no masses, bowel sounds normal. Neurological: alert, oriented, nl cn's, no resting tremor Skin: Warm and dry, no rashes, specifically in area where pt has itching. No cutting [place] Musculoskeletal: Neck is supple non tender. Extremities are nontender, nonswollen and have full range of motion. psychiatric - pt appears on edge and admits that he gets worked up about his thoughts. He has good insight into the fact that his pattern of physical symptoms may be due to mental disorder. DIFFERENTIAL DIAGNOSIS: After history and physical exam differential diagnosis was considered for acute psychosis, acs, pe, pneumothorax, pneumonia, drug use, electrolyte disorder, or other emergent etiology. Medical Decision Making Data Points Result Diagram: 05/06/18210905/06/182109 Laboratory Hematology Test 05/06/18 21:10 05/06/18 21:52 Red Blood Count 5.53 M/uL (4.00-5.60) Mean Corpuscular Volume 88.9 fL (80.0-96.0) Mean Corpuscular Hemoglobin 30.7 pg (26.0-33.0) Mean Corpuscular Hemoglobin Concent 34.5 g/dL (32.0-36.0) Red Cell Distribution Width 13.3 % (11.5-14.5) Mean Platelet Volume 10.7 fL (7.2-11.1) Neutrophils (%) (Auto) 62.8 % (39.4-72.5) Lymphocytes (%) (Auto) 25.5 % (17.6-49.6) Monocytes (%) (Auto) 6.5 % (4.1-12.4) Eosinophils (%) (Auto) 4.4 % (0.4-6.7) Basophils (%) (Auto) 0.8 % (0.3-1.4) Nucleated RBC Relative Count (auto) 0.0 /100WBC Neutrophils # (Auto) 5.5 K/uL (2.0-7.4) Lymphocytes # (Auto) 2.2 K/uL (1.3-3.6) Monocytes # (Auto) 0.6 K/uL (0.3-1.0) Eosinophils # (Auto) 0.4 K/uL (0.0-0.5) Basophils # (Auto) 0.1 K/uL (0.0-0.1) Nucleated RBC Absolute Count (auto) 0.00 K/uL Sodium Level 140 mmol/L (137-145) Potassium Level 3.7 mmol/L (3.5-5.0) Chloride Level 112 mmol/L (98-107) Carbon Dioxide Level 24 mmol/L (22-30) Blood Urea Nitrogen 8 mg/dl (9-21) Creatinine 1.00 mg/dl (0.66-1.25) Glomerular Filtration Rate Calc > 60.0 Random Glucose 94 mg/dl (75-110) Calcium Level 9.4 mg/dl (8.4-10.2) Total Bilirubin 0.5 mg/dl (0.2-1.3) Aspartate Amino Transf (AST/SGOT) 16 U/L (0-35) Alanine Aminotransferase (ALT/SGPT) 32 U/L (0-56) Alkaline Phosphatase 68 U/L (0-126) Total Protein 7.0 g/dl (6.3-8.2) Albumin 4.1 g/dl (3.5-5.0) Salicylates Level < 10 mg/L Salicylate Last Dose Date na Acetaminophen Level < 10 ug/ml Urine Color Yellow Urine Clarity Clear Urine pH 6.0 pH (4.8-9.5) Urine Specific [place] 1.017 Urine Protein Negative mg/dL (NEGATIVE) Urine Glucose (UA) Negative mg/dL (NEGATIVE) Urine Ketones Negative mg/dL (NEGATIVE) Urine Blood Negative (NEGATIVE) Urine Nitrite Negative (NEGATIVE) Urine Bilirubin Negative (NEGATIVE) Urine Urobilinogen 2.0 mg/dL (0.2-1.9) Urine Leukocyte Esterase Negative (NEGATIVE) Urine RBC None /HPF (0-2/HPF) Urine WBC 1 /HPF (0-5/HPF) Urine Squamous Epithelial Cells None /LPF (</=FEW) Urine Bacteria Negative /HPF (NONE-FEW) Urine Mucus Few /HPF (NONE-FEW) Urine Opiates Screen Negative Urine Barbiturates Screen Negative Ur Tricyclic Antidepressants Screen Negative Urine Phencyclidine Screen Negative Urine Amphetamines Screen Negative Urine Benzodiazepines Screen Negative Urine Cocaine Screen Negative Urine Cannabinoids Screen Negative Chemistry Test 05/06/18 21:10 05/06/18 21:52 White Blood Count 8.7 k/uL (4.5-11.0) Red Blood Count 5.53 M/uL (4.00-5.60) Hemoglobin 17.0 g/dL (14.0-18.0) Hematocrit 49.1 % (42.0-52.0) Mean Corpuscular Volume 88.9 fL (80.0-96.0) Mean Corpuscular Hemoglobin 30.7 pg (26.0-33.0) Mean Corpuscular Hemoglobin Concent 34.5 g/dL (32.0-36.0) Red Cell Distribution Width 13.3 % (11.5-14.5) Platelet Count 184 K/uL (150-450) Mean Platelet Volume 10.7 fL (7.2-11.1) Neutrophils (%) (Auto) 62.8 % (39.4-72.5) Lymphocytes (%) (Auto) 25.5 % (17.6-49.6) Monocytes (%) (Auto) 6.5 % (4.1-12.4) Eosinophils (%) (Auto) 4.4 % (0.4-6.7) Basophils (%) (Auto) 0.8 % (0.3-1.4) Nucleated RBC Relative Count (auto) 0.0 /100WBC Neutrophils # (Auto) 5.5 K/uL (2.0-7.4) Lymphocytes # (Auto) 2.2 K/uL (1.3-3.6) Monocytes # (Auto) 0.6 K/uL (0.3-1.0) Eosinophils # (Auto) 0.4 K/uL (0.0-0.5) Basophils # (Auto) 0.1 K/uL (0.0-0.1) Nucleated RBC Absolute Count (auto) 0.00 K/uL Glomerular Filtration Rate Calc > 60.0 Calcium Level 9.4 mg/dl (8.4-10.2) Total Bilirubin 0.5 mg/dl (0.2-1.3) Aspartate Amino Transf (AST/SGOT) 16 U/L (0-35) Alanine Aminotransferase (ALT/SGPT) 32 U/L (0-56) Alkaline Phosphatase 68 U/L (0-126) Total Protein 7.0 g/dl (6.3-8.2) Albumin 4.1 g/dl (3.5-5.0) Salicylates Level < 10 mg/L Salicylate Last Dose Date na Acetaminophen Level < 10 ug/ml Urine Color Yellow Urine Clarity Clear Urine pH 6.0 pH (4.8-9.5) Urine Specific [place] 1.017 Urine Protein Negative mg/dL (NEGATIVE) Urine Glucose (UA) Negative mg/dL (NEGATIVE) Urine Ketones Negative mg/dL (NEGATIVE) Urine Blood Negative (NEGATIVE) Urine Nitrite Negative (NEGATIVE) Urine Bilirubin Negative (NEGATIVE) Urine Urobilinogen 2.0 mg/dL (0.2-1.9) Urine Leukocyte Esterase Negative (NEGATIVE) Urine RBC None /HPF (0-2/HPF) Urine WBC 1 /HPF (0-5/HPF) Urine Squamous Epithelial Cells None /LPF (</=FEW) Urine Bacteria Negative /HPF (NONE-FEW) Urine Mucus Few /HPF (NONE-FEW) Urine Opiates Screen Negative Urine Barbiturates Screen Negative Ur Tricyclic Antidepressants Screen Negative Urine Phencyclidine Screen Negative Urine Amphetamines Screen Negative Urine Benzodiazepines Screen Negative Urine Cocaine Screen Negative Urine Cannabinoids Screen Negative Toxicology Test 05/06/18 21:10 05/06/18 21:52 Salicylates Level < 10 mg/L Salicylate Last Dose Date na Acetaminophen Level < 10 ug/ml Urine Opiates Screen Negative Urine Barbiturates Screen Negative Ur Tricyclic Antidepressants Screen Negative Urine Phencyclidine Screen Negative Urine Amphetamines Screen Negative Urine Benzodiazepines Screen Negative Urine Cocaine Screen Negative Urine Cannabinoids Screen Negative Urinalysis Test 05/06/18 21:52 Urine Color Yellow Urine Clarity Clear Urine pH 6.0 pH (4.8-9.5) Urine Specific [place] 1.017 Urine Protein Negative mg/dL (NEGATIVE) Urine Glucose (UA) Negative mg/dL (NEGATIVE) Urine Ketones Negative mg/dL (NEGATIVE) Urine Blood Negative (NEGATIVE) Urine Nitrite Negative (NEGATIVE) Urine Bilirubin Negative (NEGATIVE) Urine Urobilinogen 2.0 mg/dL (0.2-1.9) Urine Leukocyte Esterase Negative (NEGATIVE) Urine RBC None /HPF (0-2/HPF) Urine WBC 1 /HPF (0-5/HPF) Urine Squamous Epithelial Cells None /LPF (</=FEW) Urine Bacteria Negative /HPF (NONE-FEW) Urine Mucus Few /HPF (NONE-FEW) EKG/Imaging EKG Interpretation 12 lead EKG: Rhythm: normal sinus rhythm [place]: normal QRS: normal ST segments: normal Monitor Interpretation: Normal Sinus Rhythm ED Course/Re-evaluation ED Course 32-year-old male presents with initial complaint of physical symptoms that do not appear to have organic etiology after thorough physical and history. EKG is unremarkable. Of note patient has had multiple emergency department visits for a variety of physical symptoms, and multiple admissions to behavioral health in the past. As directed by the medical staff credentialing coordinator of [facility], Dr. Callejas, and after prior agreement by legal, Dist. Atty., ethics compliance, and behavioral health, it was agreed to emergency detain Mr. gallo due to inability to care for himself due to the multiple frequent visits to the emergency department for variety of issues that appear to have psychiatric etiology. I discussed directly with the p atient the need to admit him to behavioral health specifically because of his multiple visits and inability to provide adequate care for himself as well as concern for his well-being and that of others. Patient has decent insight specifically regarding this and was cooperative upon admission. I reviewed his rights for the emergency fdc order in front of witness JEFF Garcia, who signed paperwork. Decision to Disposition Date: May 06, 2018 Decision to Disposition Time: 22:20 Depart Departure Latest Vital Signs Vital Signs Date Time Temp Pulse Resp B/P (MAP) Pulse Ox O2 Delivery O2 Flow Rate FiO2 05/06/18 21:42 64 89 05/06/18 20:35 99.0 14 126/87 Room Air Impression: Primary Impression: Adjustment disorder Condition: Condition Unchanged Disposition: XFER TO [facility] Problem Qualifiers Primary Impression: Adjustment disorder Adjustment disorder type: with mixed disturbance of emotions and conduct Qualified Codes: F43.25 - Adjustment disorder with mixed disturbance of emotions and conduct LIBORIO DEXTER MD May 06, 2018 22:15
--- NOTE | 2018-05-06 23:48 | EKG ---
FACILITY: [facility] PATIENT NAME: ELAINA WAGNER : [id number] MR: [id number] V: [id number] EXAM DATE: ORDERING PHYSICIAN: LIBORIO DEXTER TECHNOLOGIST: Test Reason : Blood Pressure : / mmHG Vent. Rate : 072 BPM Atrial Rate : 072 BPM P-R Int : 152 ms QRS Dur : 118 ms QT Int : 388 ms P-R-T Axes : 000 064 076 degrees QTc Int : 424 ms Normal sinus rhythm with sinus arrhythmia Normal ECG When compared with ECG of 05-APR-2018 04:09, No significant change was found Confirmed by Kavin Soto ([id number]) on 05/07/2018 7:54:37 AM Referred By: Confirmed By:Kavin Jauregui
== END 2018-05-06 23:06 ==
LOC: ER 20:46
DX: F43.25 Adjustment disorder with mixed disturbance of emotions and conduct (principal); F17.210 Nicotine dependence, cigarettes, uncomplicated
CPT/HCPCS: 36415; 80305; 80329; 81001; 82040; 82247; 82310; 82374; 82435; 82565; 82947; 84075; 84132; 84155; 84295; 84443; 84450; 84460; 84520; 85025; 93005; 99284

== ENCOUNTER 2018-05-06 22:32 | Inpatient (IN) | payer OTHER ==
[~2018-05-06] VITALS: Ht 162.6 cm; Wt 68.0 kg
[2018-05-06] MEDS ORDERED: WATER STERILE 10 ML VIAL IM ONLY PRN (23:05)
[2018-05-06] MEDS ORDERED: LORazepam 2 MG/ML VIAL IVP PRN (23:05)
[2018-05-06] MEDS ORDERED: diphenhydrAMINE 50 MG/ML VIAL IM PRN (23:05)
[2018-05-06] MEDS ORDERED: MAG HYD/AL HYD/SIMETH 30ML UDC PO PRN (23:05)
[2018-05-06] MEDS ORDERED: OLANZapine 10 MG VIAL IM ONLY PRN (23:05)
[2018-05-06] MEDS ORDERED: ACETAMINOPHEN 325 MG TAB PO PRN (23:05)
[2018-05-06] MEDS: QUEtiapine FUM 100 MG TAB PO SCH (23:24)
[2018-05-06] MEDS: NICOTINE POLACRILEX 2 MG GUM PO PRN (23:25)
[2018-05-06 23:51] VITALS: BP 128/69
[2018-05-07] MEDS: MULTIVITAMINS TAB PO SCH (08:11)
[2018-05-07 14:27] VITALS: BP 115/80
[2018-05-07] MEDS: NICOTINE POLACRILEX 2 MG GUM PO PRN (17:28)
--- NOTE | 2018-05-07 18:12 | BHS - Psychiatric Evaluation ---
ER - Title 25 MHE Evaluation Title 25 Evaluation Patient Detained By: Physician (Dr Gene Saavedra) Referral Source: Professional, ER Dr. Saavedra Date Patient Detained: May 06, 2018 Time Patient Detained: 20:20 Date Fpc Expires: May 09, 2018 Time Fpc Expires: 22:20 Legal Status: Police Hold: No Legal Status: Residence: [facility] Resident, State Resident Assessment Data Provided By: Patient, Other Source ([facility] professionals) HPI/ROS: Patient went to the ER believing his heart was racing, thought he heard a gunshot. Frequently believes he hears gunshots. Delusional, believes he might be poisoned or shot. feels safe at the hospital. reports feeling very worn out, stressed, and is frightened. Says, "I don't know why they would want me, but I worry all the time." patient looks very overtired. At the ER over 20 times in 1 month for a "racing heart" and bizarre fears about two people who reside in his housing complex. 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 Admit due to SI or Attempt: No Suicide Plan: No Plan Current Suicide Plan Last suicidal thoughts were 3 days ago. Alcohol or Drugs Involved: Yes (Past history) Is Patient Info Reliable: No (Patient is paranoid with odd delusions) Is Collateral Info Reliable: Yes Current Home Psych Meds: Seroquel Zeprexa Mental Status Exam General Appearance: Well Groomed; No Good Eye Contact Speech: Rambling Mood: Dysthmic/Depressed Affect: Flat, Anxious Thought Process: Flight of Ideas Thought Content: Suicidal Ideation (Reports feeling suicidal 3 days ago.) Cognition: Alert & Oriented-Place; No Ktcop-[id number] Memory: Immediate Insight Judgment: Poor Delusions: Persecutory (Hospitalized at [facility] in February 2018 because he was dizzy and reported he believed someone had put "cyanide in his cigarettes."), [place] hanna Current Risk & History Current Dangerous Risk Assessm: Current Suicide Ideation (Says he experienced suicidal ideation 3 days ago.) Past Dangerous Risk Assessm: Other (Possible kidnapping of a female jogger in the [place] area.) Prior Alcohol/Drug Abuse Reports hx of substance abuse. Says of late he does not abuse alcohol or other drugs. Patient's mother confirms this. Previous Suicide Attempt: Past - Low Lethality Previous Psychiatric Illness: Yes Previous Diagnosis/Treatment: Schizophrenia Previous Psychiatric Treatment: Yes (Likely 10 psychiatric previous hospitalizations, many in [place]. Patient mother reports more hospitalizations than patient does. ) Risk Assessment & Disposition Evaluated Risk Assessment: Patient is very high risk. He has complex paranoid delusions which case him to believe he needs to "take action." Feels continually "stressed" and preoccupied with these delusion. Has many somatic fears including a belief his heart is racing, when no medical evidence substantiates this. Patient mother has shared her concern for her son with the [facility] Team, and believes he needs extensive support to be able to care for himself and keep himself safe. Impression: Primary Impression: Paranoid schizophrenia Additional Impressions: Unspecified psychosis Insomnia Meets Mental Illness Req.: Yes Meets Dangerousness Req.: Yes Emergency Fpc to be: Upheld Decision Comment: Patient needs a high level of support and stabilization at this time. He is not connected with reality and has some concerning delusions about himself and others. Believes he is being poisoned. Collateral report from patient mother suggests he may have kidnapped a female jogger in the [place] area, and prosecuted for this crime. Patient is weary psychological from fears that he is being pursued. he does not feel he has normalcy. Says he does not feel hopeful and his life, has withdrawn from others, and is sad an worried most of the time, by his report. He does not find adequate support in outpatient treatment. Date of Decision: May 07, 2018 Time of Decision: 18:08 Patient is Medically Stable at: Yes Disposition: [facility] Problem Qualifiers LINDA LONG LPC May 07, 2018 18:12
[2018-05-07] MEDS: QUEtiapine FUM 100 MG TAB PO SCH (20:39)
[2018-05-07 21:15] VITALS: BP 112/77
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
[2018-05-08 06:18] VITALS: BP 104/66
[2018-05-08] MEDS: MULTIVITAMINS TAB PO SCH (08:25)
[2018-05-08] MEDS: NICOTINE POLACRILEX 2 MG GUM PO PRN (10:06)
--- NOTE | 2018-05-08 14:23 | BHS Progress Note ---
[facility] - Subjective Progress Notes Subjective Pt seen in conference room with team. Pt slept well, denies oversedation from seroquel, feels the 200 mg dose is helpful for him. We discussed schizophrenia, discussed delusions and the anxiety that can accompany them, and how medication can help. Encouraged him to consider either a higher dose of seroquel or trying latuda, to more effectively treat him, but he does not want to change anything. Will continue to work with him to build insight. Mental health court scheduled for tomorrow at 8 am. Suicidal Ideation: None Homicidal Ideation: None [facility] - Objective Physical Exam Vital Signs Vital Signs 05/08/18 06:18 Temp 98.4 Pulse 52 Resp 15 B/P (MAP) 104/66 (79) Pulse Ox 95 O2 Delivery Room Air Muscle Strength and Tone: WNL Gait and Station: Steady [facility] Medications Reviewed: Side Effects, Benefits of Medication, Risks Allergies Reviewed: Yes Mental Status Exam General Appearance: Well Groomed; No Good Eye Contact Speech: Rambling Mood: Dysthmic/Depressed Affect: Flat, Anxious Thought Process: Flight of Ideas Thought Content: Suicidal Ideation (Reports feeling suicidal 3 days ago.) Cognition: Alert & Oriented-Place; No Wgkxb-Tapynmde-Ayakdbiaq Memory: Immediate Insight Judgment: Poor [facility] Assessment and Plan Ebtc-cp-Scut Encounter Date: May 08, 2018 Hpiz-fu-Waij Encounter Time: 09:00 [facility] Plan: Admit to Unit, Necessary Precautions, Individual/Group Therapy, Admin/Titrate Meds, Educate Patient Tobacco Medications: Started Multpiple Antipsychotics Used: No Problems: (1) Schizophrenia Status: Acute Problem Qualifiers (1) Schizophrenia: Schizophrenia type: paranoid schizophrenia Qualified Codes: F20.0 - Paranoid schizophrenia KAYLYN MOHAN MD May 08, 2018 14:23
[2018-05-08 15:12] VITALS: BP 112/66
[2018-05-08 21:06] VITALS: BP 115/83
--- NOTE | 2018-05-08 21:16 | NUR ---
Last night while pt. was talking to Alba our Mental Health Lavatory Attendant. He told her that he feels like he in the right place because their are a lot of beautiful girls here. He told me tonight, he wished that he wasn't here. He only comes into the ER for a medical evaluation. Pt. is known to fabricate statements and is hard to be trusted.
[2018-05-08] MEDS: QUEtiapine FUM 100 MG TAB PO SCH (21:44)
[2018-05-09 04:55] VITALS: BP 112/72
[2018-05-09] MEDS: MULTIVITAMINS TAB PO SCH (08:24)
[2018-05-09 13:24] VITALS: BP 111/75
--- NOTE | 2018-05-09 16:26 | BHS Progress Note ---
[facility] - Subjective Progress Notes Subjective Pt seen in treatment team meeting with his mother and his family law attorney on speaker phone. He slept well, has no c/o's. He did waive his first hearing. We discussed his meds and he is still very guarded about NOT changing meds. His mother provided further hx how he is NOT doing well, calls her frequently during the night c/o "panic attacks," that his paranoia is causing him to isolate, and not be functional. Any time we started to address paranoia he got more defensive, claiming that his reports are real. Has no insight. Did use humor appropriately a few times. Will continue to encourage and educate him, build rapport, hopefully we can get him onto more effective medication regimin. Suicidal Ideation: None Homicidal Ideation: None [facility] - Objective Physical Exam Vital Signs Vital Signs 05/09/18 05/09/18 04:55 13:24 Temp 98.2 Pulse 71 Resp 15 B/P (MAP) 111/75 (87) Pulse Ox 94 O2 Delivery Room Air Muscle Strength and Tone: WNL Gait and Station: Steady [facility] Medications Reviewed: Side Effects, Benefits of Medication, Risks Allergies Reviewed: Yes Mental Status Exam General Appearance: Well Groomed; No Good Eye Contact; Psychomotor Agitation (mildly verbally agitated at times) Speech: Rambling Mood: Dysthmic/Depressed Affect: Flat, Anxious Thought Process: Flight of Ideas Thought Content: No Suicidal Ideation, No Homicidal Ideation; Delusions (complex paranoid delusions); No Auditory Halllucinations, No Visual Hallucinations, No Thought Broadcasting, No Ideas of Reference, No Obsessions, No Compulsions, No Other Sensorium: Clear Cognition: Alert & Oriented-Person, Alert & Oriented-Place, Alert & Oriented- Time; No Wfwrz-Fugrdcmu-Pilyyeyqr Memory: Immediate, Recent, Remote Intelligence: Average Insight Judgment: Poor (due to psychosis) [facility] Assessment and Plan [id number]-[id number] Encounter Date: May 09, 2018 Amfq-kl-Vydu Encounter Time: 10:00 [facility] Plan: Admit to Unit, Necessary Precautions, Individual/Group Therapy, Admin/Titrate Meds, Educate Patient Tobacco Medications: Started Multpiple Antipsychotics Used: No Problems: (1) Schizophrenia Status: Acute Problem Qualifiers (1) Schizophrenia: Schizophrenia type: paranoid schizophrenia Qualified Codes: F20.0 - Paranoid schizophrenia KAYLYN MOHAN MD May 09, 2018 16:25
[2018-05-09] MEDS: QUEtiapine FUM 100 MG TAB PO SCH (21:42)
[2018-05-10 05:52] VITALS: BP 101/62
[2018-05-10] MEDS: MULTIVITAMINS TAB PO SCH (08:33)
[2018-05-10 13:12] VITALS: BP 132/78
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
--- NOTE | 2018-05-10 15:00 | BHS Progress Note ---
BHS - Subjective Progress Notes Subjective Pt seen individually. Pt reports sleeping well. He denies oversedation. He still does not want to try a higher dose of seroquel, or try changing his medication. We talked about schizophrenia, delusions, and how medication can help. We discussed different meds he might try, like latuda or zyprexa. He denies that he is having delusions-- says that people in the basement are really harrassing him, and that of course he is anxious with gunshots going off all around. Will continue to try to promote acceptance of diagnosis and improved insight. Suicidal Ideation: None Homicidal Ideation: None BHS - Objective Physical Exam Vital Signs Vital Signs 05/10/18 05/10/18 05:52 13:12 Temp 97.9 Pulse 52 Resp 15 B/P (MAP) 132/78 (96) Pulse Ox 97 O2 Delivery Room Air Muscle Strength and Tone: WNL Gait and Station: Steady BHS Medications Reviewed: Side Effects, Benefits of Medication, Risks Allergies Reviewed: Yes Mental Status Exam General Appearance: Well Groomed, Psychomotor Agitation, Other (mostly very poor eye contact, gazing to his left.) Speech: Normal Rate, Normal Rhythm, Normal Volume, Rambling Mood: Euthymic Affect: Flat, Anxious (mildly) Thought Process: Other (circumstantial to tangential) Thought Content: No Suicidal Ideation, No Homicidal Ideation; Delusions (complex paranoid delusions); No Auditory Halllucinations, No Visual Hallucinations, No Thought Broadcasting, No Ideas of Reference, No Obsessions, No Compulsions, No Other Sensorium: Clear Cognition: Alert & Oriented-Person, Alert & Oriented-Place, Alert & Oriented-Time Memory: Immediate, Recent, Remote Intelligence: Average Insight Judgment: Poor S Assessment and Plan [id number] Encounter Date: May 10, 2018 [id number] Encounter Time: 12:00 BHS Plan: Admit to Unit, Necessary Precautions, Individual/Group Therapy, Admin/Titrate Meds, Educate Patient Tobacco Medications: Started Multpiple Antipsychotics Used: No Problems: (1) Schizophrenia Status: Acute Problem Qualifiers (1) Schizophrenia: Schizophrenia type: paranoid schizophrenia Qualified Codes: F20.0 - Paranoid schizophrenia KAYLYN MOHAN MD May 10, 2018 14:59
[2018-05-10] MEDS: QUEtiapine FUM 100 MG TAB PO SCH (21:10)
[2018-05-10 22:21] VITALS: BP 111/78
[2018-05-11] MEDS: MULTIVITAMINS TAB PO SCH (08:20)
--- NOTE | 2018-05-11 13:47 | BHS Progress Note ---
BHS - Subjective Progress Notes Subjective Pt seen in treatment team with his mother on speaker phone and Jennie, the [facility] [employer] present. Pt still quite guarded, with limited insight into his illness. Says he had an episode last night where he thought he was having palpitations, but nursing checked and pulse was fine. He did finally agree to try adding latuda, so we will beging with 40 mg tonight, 80 mg tomorrow, and 120 mg on Monday. Hopefully if we can get schizophrenia under better control, perhaps we could get him on a suspended commitment rather than having to go to [facility]. Suicidal Ideation: None Homicidal Ideation: None BHS - Objective Physical Exam Vital Signs Vital Signs 05/10/18 05/10/18 05:52 22:21 Temp 97.6 Pulse 86 Resp 15 B/P (MAP) 111/78 (89) Pulse Ox 96 O2 Delivery Room Air Muscle Strength and Tone: WNL Gait and Station: Steady BHS Medications Reviewed: Side Effects, Benefits of Medication, Risks Allergies Reviewed: Yes Mental Status Exam General Appearance: Well Groomed, Psychomotor Agitation, Other (poor eye contact) Speech: Normal Rate, Normal Rhythm, Normal Volume, Rambling Mood: Euthymic Affect: Flat, Anxious Thought Process: Other Thought Content: No Suicidal Ideation, No Homicidal Ideation; Delusions; No Auditory Halllucinations, No Visual Hallucinations, No Thought Broadcasting, No Ideas of Reference, No Obsessions, No Compulsions, No Other Sensorium: Clear Cognition: Alert & Oriented-Person, Alert & Oriented-Place, Alert & Oriented- Time Memory: Immediate, Recent, Remote Intelligence: Average Insight Judgment: Poor [facility] Assessment and Plan [id number] Encounter Date: May 11, 2018 [id number] Encounter Time: 08:40 BHS Plan: Admit to Unit, Necessary Precautions, Individual/Group Therapy, Admin/Titrate Meds, Educate Patient Tobacco Medications: Started Multpiple Antipsychotics Used: Yes Reason For >1 Antipsychotic: need to initiate latuda before weaning seroquel Problems: (1) Schizophrenia Status: Acute Problem Qualifiers (1) Schizophrenia: Schizophrenia type: paranoid schizophrenia Qualified Codes: F20.0 - Paranoid schizophrenia KAYLYN MOHAN MD May 11, 2018 13:47
[2018-05-11] MEDS: NICOTINE POLACRILEX 2 MG GUM PO PRN (13:59)
[2018-05-11 14:00] VITALS: BP 106/70
[2018-05-11] MEDS: QUEtiapine FUM 100 MG TAB PO SCH (20:49)
[2018-05-11] MEDS ORDERED: LURASIDONE 40 MG TAB PO ONE (21:00)
[2018-05-12 06:54] VITALS: BP 100/72
[2018-05-12] MEDS: MULTIVITAMINS TAB PO SCH (09:19)
--- NOTE | 2018-05-12 11:29 | BHS Progress Note ---
BHS - Subjective Progress Notes Subjective "I'm doing excellent. I really didn't expect to stay but I'm sleeping better and my anxiety is down, My goal is to get better and continue @ [facility]. My mind needed a break." Patient started on Lurasidone with goal to taper upward pending tolerance, has been on Quetiapine and was resisting dose adjustment Met with patient in room. Cooperative and polite during interview. Denies depression, thoughts of harming self or others Anxiety less, denies anger, denies paranoia or auditory/visual hallucinations Treatment team 05/11 with his mother on speaker phone and Jennie [facility] [employer] Trimmer Improved insight although also desires to be discharged back to home Increase Latuda to 80 mg po tonight (05/12/18) and 120 mg po 05/13/18 pending tolerance, he is instructed on this and agreeable Suicidal Ideation: None Homicidal Ideation: None BHS - Objective Physical Exam Vital Signs Vital Signs Date Time Temp Pulse Resp B/P (MAP) Pulse Ox O2 Delivery O2 Flow Rate FiO2 05/12/18 06:54 96.9 94 100/72 (81) 98 Room Air 05/11/18 14:00 16 Deferred Medications (Trade) Dose Ordered Sig/Bruce Route PRN Reason Start Time Stop Time Status Last Admin Dose Admin Lurasidone HCl (Latuda 40 Mg Tab(Or Equiv)) 40 mg QHS ONCE PO 05/11/18 21:00 05/11/18 21:02 DC 05/11/18 20:49 Multivitamins (Thera-M Enhanced Tab (Or Equiv)) 1 each QDAY PO 05/07/18 09:00 06/06/18 08:59 05/12/18 09:19 Nicotine Polacrilex (Nicorette 2 Mg Gum (Or Equiv)) 2 mg Q1-2H PRN PO NICOTINE REPLACEMENT 05/06/18 23:20 06/05/18 23:19 05/11/18 13:59 Quetiapine Fumarate (SEROquel 100 MG TAB (OR EQUIV)) 200 mg QHS PO 05/07/18 21:00 06/06/18 20:59 05/11/18 20:49 Muscle Strength and Tone: WNL Gait and Station: Steady [facility] Medications Reviewed: Side Effects, Benefits of Medication, Risks Allergies Reviewed: Yes Mental Status Exam General Appearance: Well Groomed, Good Eye Contact, Cooperative, Polite, Good Interaction; No Psychomotor Agitation, No Psychomotor Retardation, No Other Speech: Clear, Normal Rate, Normal Rhythm, Normal Volume, Normal Tone; No Rambling Mood: Euthymic Affect: Full and Appropriate, Calm; No Flat, No Anxious Thought Process: Organized, Logical, Goal Directed; No Loose Associations, No Flight of Ideas; Other Thought Content: No Suicidal Ideation, No Homicidal Ideation; Delusions (possibly underlying); No Auditory Halllucinations, No Visual Hallucinations, No Thought Broadcasting, No Ideas of Reference, No Obsessions, No Compulsions, No Other Sensorium: Clear Cognition: Alert & Oriented-Person, Alert & Oriented-Place, Alert & Oriented- Time Memory: Immediate, Recent, Remote Intelligence: Average Insight Judgment: Poor Lab Current Medications Medications (Trade) Dose Ordered Sig/Bruce Route PRN Reason Start Time Stop Time Status Last Admin Dose Admin Quetiapine Fumarate (SEROquel 100 MG TAB (OR EQUIV)) 200 mg QHS PO 05/07/18 21:00 06/06/18 20:59 05/11/18 20:49 Acetaminophen (Tylenol(*)325 Mg Tab (Or Equiv)) 650 mg Q6H PRN PO FEVER/PAIN 05/06/18 23:05 06/05/18 23:04 Al Hydrox/Mg Hydrox/Simethicone (Maalox(*) 30 ml Udcup (Or Equiv)) 30 ml BID PRN PO HEARTBURN 05/06/18 23:05 06/05/18 23:04 Multivitamins (Thera-M Enhanced Tab (Or Equiv)) 1 each QDAY PO 05/07/18 09:00 06/06/18 08:59 05/12/18 09:19 Olanzapine (zyPREXA(*) (OR EQUIV)) 10 mg Q6H PRN IM ONLY SEVERE AGITATION 05/06/18 23:05 06/05/18 23:04 Lorazepam (Ativan(*) 2 Mg/ ml Vial (Or Equiv)) 2 mg Q6H PRN IVP ANXIETY 05/06/18 23:05 05/20/18 23:04 Diphenhydramine HCl (Benadryl(*) 50 Mg/ml Vial (Or Equiv)) 50 mg Q6H PRN IM ITCHING 05/06/18 23:05 06/05/18 23:04 Sterile Water (Sterile Water Injection(*) 10 ml Vial) 2.1 ml Q6H PRN IM ONLY AGITATION 05/06/18 23:05 06/05/18 23:04 Nicotine Polacrilex (Nicorette 2 Mg Gum (Or Equiv)) 2 mg Q1-2H PRN PO NICOTINE REPLACEMENT 05/06/18 23:20 06/05/18 23:19 05/11/18 13:59 Lurasidone HCl (Latuda 40 Mg Tab(Or Equiv)) 40 mg QHS ONCE PO 05/11/18 21:00 05/11/18 21:02 DC 05/11/18 20:49 Lurasidone HCl (Latuda 40 Mg Tab(Or Equiv)) 80 mg QHS ONCE PO 05/12/18 21:00 05/12/18 21:01 Lurasidone HCl (Latuda 40 Mg Tab(Or Equiv)) 120 mg QHS ONCE PO 05/13/18 21:00 05/13/18 21:01 Allergies Coded Allergies No Known Drug Allergies (Unverified05/06/18) [facility] Assessment and Plan [id number] Encounter Date: May 12, 2018 [id number] Encounter Time: 11:[address] [facility] Plan: Admit to Unit, Necessary Precautions, Individual/Group Therapy, Admin/Titrate Meds, Educate Patient Tobacco Medications: Started Multpiple Antipsychotics Used: Yes Reason For >1 Antipsychotic: need to initiate latuda before weaning seroquel Problems: (1) Schizophrenia Status: Chronic Condition Increase Latuda to 80 mg po tonight (05/12/18) and 120 mg po 05/13/18 pending tolerance, he is instructed on this and agreeable Continue precautions, close monitoring of symptoms Ongoing planning w/tack puller for outpatient care Problem Qualifiers (1) Schizophrenia: Schizophrenia type: paranoid schizophrenia Qualified Codes: F20.0 - Paranoid schizophrenia MATI LIMA NP May 12, 2018 11:29
[2018-05-12] MEDS: NICOTINE POLACRILEX 2 MG GUM PO PRN ×2 (12:59→21:18)
[2018-05-12 13:45] VITALS: BP 110/72
[2018-05-12 20:28] VITALS: BP 115/81
[2018-05-12] MEDS: QUEtiapine FUM 100 MG TAB PO SCH (20:43)
[2018-05-12] MEDS ORDERED: LURASIDONE 40 MG TAB PO ONE (21:00)
[2018-05-13 05:47] VITALS: BP 95/55
[2018-05-13] MEDS: MULTIVITAMINS TAB PO SCH (08:39)
[2018-05-13] MEDS: NICOTINE POLACRILEX 2 MG GUM PO PRN ×2 (08:39→19:09)
--- NOTE | 2018-05-13 09:57 | BHS Progress Note ---
BHS - Subjective Progress Notes Subjective "I'm doing really well, I just want to go home. The longer I'm here the better because it gives me a chance to save some money. It was actually good to come here because there was some things that were bothering me at home, like the tile on the floor and my mother coming in without letting me know. I ended up coming to the ER a lot more and I started thinking I needed to quit taking the ambulance and started taking a cab. I was having "episodes" at home where my thoughts were thinking that someone was out to get me, my cigarettes or through my car. If it does happen to me, it's a really rare thing." Admits to paranoia, delusional thoughts Anxiety, "just about going home, Denies mood swings, denies racing thoughts Denies paranoia, denies auditory/visual hallucinations "I don't let my mind wander like that." Treatment team 05/14 w/mother and Ryan from [facility] Patient started on Lurasidone with goal to taper upward pending tolerance, has been on Quetiapine and was resisting dose adjustment Met with patient in room. Cooperative and polite during interview. Denies depression, thoughts of harming self or others Anxiety less, denies anger, denies paranoia or auditory/visual hallucinations Improved insight although also desires to be discharged back to home Increase Latuda to 120 mg po tonight pending tolerance, he is instructed on this and agreeable Suicidal Ideation: None Homicidal Ideation: None Suicidal Ideation: None Homicidal Ideation: None BHS - Objective Physical Exam Vital Signs Vital Signs Date Time Temp Pulse Resp B/P (MAP) Pulse Ox O2 Delivery O2 Flow Rate FiO2 05/13/18 05:47 96.5 56 95/55 (68) 92 Room Air 05/12/18 13:45 16 Muscle Strength and Tone: WNL Gait and Station: Steady S Medications Reviewed: Side Effects, Benefits of Medication, Risks Allergies Reviewed: Yes Mental Status Exam General Appearance: Well Groomed; No Good Eye Contact; Cooperative, Polite, Good Interaction; No Psychomotor Agitation, No Psychomotor Retardation; Other (anxious and poor eye contact at times ) Speech: Clear, Normal Rate, Normal Rhythm, Normal Volume, Normal Tone; No Rambling Mood: Euthymic Affect: Full and Appropriate, Calm; No Flat; Anxious Thought Process: Organized, Logical, Goal Directed; No Loose Associations, No Flight of Ideas; Other Thought Content: No Suicidal Ideation, No Homicidal Ideation; Delusions (possibly underlying); No Auditory Halllucinations, No Visual Hallucinations, No Thought Broadcasting, No Ideas of Reference, No Obsessions, No Compulsions, No Other Sensorium: Clear Cognition: Alert & Oriented-Person, Alert & Oriented-Place, Alert & Oriented- Time Memory: Immediate, Recent, Remote Intelligence: Average Insight Judgment: Poor Microbiology Medications (Trade) Dose Ordered Sig/Bruce Route PRN Reason Start Time Stop Time Status Last Admin Dose Admin Lurasidone HCl (Latuda 40 Mg Tab(Or Equiv)) 80 mg QHS ONCE PO 05/12/18 21:00 05/12/18 21:01 DC 05/12/18 20:45 Multivitamins (Thera-M Enhanced Tab (Or Equiv)) 1 each QDAY PO 05/07/18 09:00 06/06/18 08:59 05/13/18 08:39 Nicotine Polacrilex (Nicorette 2 Mg Gum (Or Equiv)) 2 mg Q1-2H PRN PO NICOTINE REPLACEMENT 05/06/18 23:20 06/05/18 23:19 05/13/18 08:39 Quetiapine Fumarate (SEROquel 100 MG TAB (OR EQUIV)) 200 mg QHS PO 05/07/18 21:00 06/06/18 20:59 05/12/18 20:43 [facility] Assessment and Plan [id number] Encounter Date: May 13, 2018 Sebz-ty-Sfib Encounter Time: 09:50 [facility] Plan: Admit to Unit, Necessary Precautions, Individual/Group Therapy, Admin/Titrate Meds, Educate Patient Tobacco Medications: Started Multpiple Antipsychotics Used: Yes Reason For >1 Antipsychotic: need to initiate latuda before weaning seroquel Problems: (1) Schizophrenia Status: Chronic Condition Continue Lurasidone increasing dose to 120mg this pm, compliant with new medication and denies side effects Treatment team 05/14 with mother and automobile rental representative from [facility] Continue close monitoring Problem Qualifiers (1) Schizophrenia: Schizophrenia type: paranoid schizophrenia Qualified Codes: F20.0 - Paranoid schizophrenia MATI LIMA NP May 13, 2018 09:57
[2018-05-13 12:20] VITALS: BP 108/68
[2018-05-13] MEDS ORDERED: LURASIDONE 40 MG TAB PO ONE (21:00)
[2018-05-13] MEDS: QUEtiapine FUM 100 MG TAB PO SCH (21:12)
[2018-05-13 22:10] VITALS: BP 96/58
[2018-05-14 05:27] VITALS: BP 105/62
[2018-05-14] MEDS: NICOTINE POLACRILEX 2 MG GUM PO PRN ×3 (08:11→21:52)
[2018-05-14] MEDS: MULTIVITAMINS TAB PO SCH (08:11)
[2018-05-14 13:23] VITALS: BP 108/70
--- NOTE | 2018-05-14 14:22 | BHS Progress Note ---
S - Subjective Progress Notes Subjective Pt seen in treatment team with Jennie, the [facility] Line Painting Machine Operator, present. Pt is tolerating latuda well, he denies oversedation, denies side effects. He feels it is helping him to be less anxious. He did have one episode yesterday where he started to feel his heart racing again, and he asked staff to check his vitals, which were fine. He showed a bit of improved insight as he commented "so I guess it wasn't my heart, it was anxiety." He still has significant paranoid delusions, he talked about getting rid of the tile in his apartment "th at has poison on it." Talked about the washer and dryer being contaminated with poison. Will continue current medications; awaiting his [address] hearing [address] mental health court. Suicidal Ideation: None Homicidal Ideation: None BHS - Objective Physical Exam Vital Signs Vital Signs 05/13/18 05/13/18 05/14/18 12:20 22:10 13:23 Temp 98.2 Pulse 63 Resp 16 B/P (MAP) 108/70 (83) Pulse Ox 96 O2 Delivery Room Air O2 Flow Rate 97.0 Muscle Strength and Tone: WNL Gait and Station: Steady BHS Medications Reviewed: Side Effects, Benefits of Medication, Risks Allergies Reviewed: Yes Mental Status Exam General Appearance: Casual; No Good Eye Contact; Cooperative, Polite, Good Interaction; No Psychomotor Agitation, No Psychomotor Retardation; Other (anxious and poor eye contact at times ) Speech: Clear, Normal Rate, Normal Rhythm, Normal Volume, Normal Tone; No Rambling Mood: Euthymic Affect: Full and Appropriate, Calm; No Flat; Anxious Thought Process: Organized, Logical, Goal Directed; No Loose Associations, No Flight of Ideas; Other Thought Content: No Suicidal Ideation, No Homicidal Ideation; Delusions (paranoid delusions); No Auditory Halllucinations, No Visual Hallucinations, No Thought Broadcasting, No Ideas of Reference, No Obsessions, No Compulsions, No Other Sensorium: Clear Cognition: Alert & Oriented-Person, Alert & Oriented-Place, Alert & Oriented- Time Memory: Immediate, Recent, Remote Intelligence: Average Insight Judgment: Poor S Assessment and Plan Yjci-bp-Chax Encounter Date: May 14, 2018 Mbbd-[id number] Encounter Time: 10:00 BHS Plan: Admit to Unit, Necessary Precautions, Individual/Group Therapy, Admin/Titrate Meds, Educate Patient Tobacco Medications: Started Multpiple Antipsychotics Used: Yes Reason For >1 Antipsychotic: need to initiate latuda before weaning seroquel Problems: (1) Schizophrenia Status: Chronic Problem Qualifiers (1) Schizophrenia: Schizophrenia type: paranoid schizophrenia Qualified Codes: F20.0 - Paranoid schizophrenia KAYLYN MOHAN MD May 14, 2018 14:21
[2018-05-14] MEDS ORDERED: LURASIDONE 40 MG TAB PO SCH (21:00)
[2018-05-14] MEDS: QUEtiapine FUM 100 MG TAB PO SCH (21:29)
[2018-05-14 22:10] VITALS: BP 99/64
[2018-05-15 06:05] VITALS: BP 99/55
[2018-05-15] MEDS: MULTIVITAMINS TAB PO SCH (08:40)
[2018-05-15] MEDS: NICOTINE POLACRILEX 2 MG GUM PO PRN (08:42)
--- NOTE | 2018-05-15 14:22 | BHS Progress Note ---
BHS - Subjective Progress Notes Subjective Pt seen individually. Starting to gain some reality testing, said he recognized that prior to admission he was "making a lot of paranoid assumptions." Remembers feeling like he was caught between the Mob and the FBI, and that he had to please them both even though they were against each other, otherwise they would come get him. But not completely free of delusional thinking by any means, still says he wants to "get rid of that poison tile" in his apartment. We did some research on his meds and because of the expense of latuda he would like to switch to abilify-- so we will dc latuda and switch to abilify 20 mg tonight. We are working with his social media manager to arrange an outpatient commitment. Will see how he does with the abilify-- hoping for discharge in next day or two. Suicidal Ideation: None Homicidal Ideation: None BHS - Objective Physical Exam Vital Signs Vital Signs 05/13/18 05/15/18 22:10 06:05 Temp 97.8 Pulse 64 Resp 15 B/P (MAP) 99/55 (70) Pulse Ox 94 O2 Delivery Room Air O2 Flow Rate 97.0 Muscle Strength and Tone: WNL Gait and Station: Steady BHS Medications Reviewed: Side Effects, Benefits of Medication, Risks Allergies Reviewed: Yes Mental Status Exam General Appearance: Casual; No Good Eye Contact; Cooperative, Polite, Good Interaction; No Psychomotor Agitation, No Psychomotor Retardation; Other (anxious and poor eye contact at times ) Speech: Clear, Normal Rate, Normal Rhythm, Normal Volume, Normal Tone; No Rambling Mood: Euthymic Affect: Full and Appropriate, Calm; No Flat; Anxious Thought Process: Organized, Logical, Goal Directed; No Loose Associations, No Flight of Ideas; Other Thought Content: No Suicidal Ideation, No Homicidal Ideation; Delusions (paranoid delusions); No Auditory Halllucinations, No Visual Hallucinations, No Thought Broadcasting, No Ideas of Reference, No Obsessions, No Compulsions, No Other Sensorium: Clear Cognition: Alert & Oriented-Person, Alert & Oriented-Place, Alert & Oriented- Time Memory: Immediate, Recent, Remote Intelligence: Average Insight Judgment: Poor S Assessment and Plan [id number]-lv-[id number] Encounter Date: May 15, 2018 Nuso-mv-Wopg Encounter Time: 10:00 BHS Plan: Admit to Unit, Necessary Precautions, Individual/Group Therapy, Admin/Titrate Meds, Educate Patient Tobacco Medications: Started Multpiple Antipsychotics Used: Yes Reason For >1 Antipsychotic: need to initiate abilify before weaning seroquel Problems: (1) Schizophrenia Status: Chronic Problem Qualifiers (1) Schizophrenia: Schizophrenia type: paranoid schizophrenia Qualified Codes: F20.0 - Paranoid schizophrenia KAYLYN MOHAN MD May 15, 2018 14:22
[2018-05-15 14:28] VITALS: BP 102/79
[2018-05-15] MEDS: QUEtiapine FUM 100 MG TAB PO SCH (21:25)
[2018-05-15] MEDS: ARIPiprazole 10 MG TAB PO SCH (21:25)
[2018-05-15 22:04] VITALS: BP 120/81
[2018-05-16 06:08] VITALS: BP 114/72
[2018-05-16] MEDS: MULTIVITAMINS TAB PO SCH (07:57)
--- NOTE | 2018-05-16 11:50 | BHS Progress Note ---
BHS - Subjective Progress Notes Subjective Pt seen in treatment team with staff from [facility] and his workers compensation attorney present, also his mother, father, and step mother present by speaker phone. Pt had first dose abilify last night. He tolerated it well. Slept OK. Is a bit more irritable today, and still has somatic delusions "last night my heart was doing that again, but the nurse said my vitals were fine." Still guarded talking about his paranoid delusions re FBI and the Mob-- but overall LESS preoccupied with delusional material than on admission. Family were all supportive-- his step mother sends him money every month, and we were trying to educate him and family that he should qualify for SSDI based on his diagnosis of schizophrenia. Pt is hesitant to apply because he would like to work. Staff at [facility] said they will work with him on this as outpatient. Fasting lipid panel was checked since pt. chronically on neuroleptics-- this was entirely WNL. Will continue current meds and tentative discharge tomorrow to outpatient commitment. Suicidal Ideation: None Homicidal Ideation: None BHS - Objective Physical Exam Vital Signs Vital Signs 05/13/18 05/16/18 22:10 06:08 Temp 97.6 Pulse 72 Resp 15 B/P (MAP) 114/72 (86) Pulse Ox 96 O2 Delivery Room Air O2 Flow Rate 97.0 Muscle Strength and Tone: WNL Gait and Station: Steady [facility] Medications Reviewed: Side Effects, Benefits of Medication, Risks Allergies Reviewed: Yes Mental Status Exam General Appearance: Casual; No Good Eye Contact; Cooperative, Polite, Good Interaction; No Psychomotor Agitation, No Psychomotor Retardation; Other (anxious and poor eye contact at times ) Speech: Clear, Normal Rate, Normal Rhythm, Normal Volume, Normal Tone; No R ambling Mood: Euthymic, Other (a little more irritable today) Affect: Calm; No Flat; Anxious, Agitated (mild) Thought Process: No Organized, No Logical, No Goal Directed, No Loose Associations, No Flight of Ideas; Other (circumstantial) Thought Content: No Suicidal Ideation, No Homicidal Ideation; Delusions (paranoid delusions); No Auditory Halllucinations, No Visual Hallucinations, No Thought Broadcasting, No Ideas of Reference, No Obsessions, No Compulsions, No Other Sensorium: Clear Cognition: Alert & Oriented-Person, Alert & Oriented-Place, Alert & Oriented- Time Memory: Immediate, Recent, Remote Intelligence: Average Insight Judgment: Poor [facility] Assessment and Plan Ndih-uv-Tiaf Encounter Date: May 16, 2018 Ltdr-td-Fkug Encounter Time: 08:30 [facility] Plan: Admit to Unit, Necessary Precautions, Individual/Group Therapy, Admin/Titrate Meds, Educate Patient Tobacco Medications: Started Multpiple Antipsychotics Used: Yes Reason For >1 Antipsychotic: need to initiate abilify before weaning seroquel Problems: (1) Schizophrenia Status: Chronic Problem Qualifiers (1) Schizophrenia: Schizophrenia type: paranoid schizophrenia Qualified Codes: F20.0 - Paranoid schizophrenia KAYLYN MOHAN MD May 16, 2018 11:50
[2018-05-16] MEDS: NICOTINE POLACRILEX 2 MG GUM PO PRN (13:53)
[2018-05-16 14:39] VITALS: BP 116/74
[2018-05-16] MEDS: QUEtiapine FUM 100 MG TAB PO SCH (20:59)
[2018-05-16] MEDS: ARIPiprazole 10 MG TAB PO SCH (20:59)
[2018-05-16 21:11] VITALS: BP 121/86
[2018-05-17 04:35] VITALS: BP 109/71
[2018-05-17] MEDS: MULTIVITAMINS TAB PO SCH (08:07)
[2018-05-17] MEDS: NICOTINE POLACRILEX 2 MG GUM PO PRN (08:35)
[2018-05-17] MEDS ORDERED: ARIP10TA4 PO (09:23)
[2018-05-17] MEDS ORDERED: NICO-306 BC (09:26)
--- NOTE | 2018-05-17 15:47 | BHS Discharge Summary ---
[facility] Discharge Summary Cxrc-kw-Urye Encounter Date: May 17, 2018 [id number] Encounter Time: 09:50 Reason-Hosp/Final Diag (DSM-V): (1) Schizophrenia Status: Chronic Hospital Course & Plan: CHIEF COMPLAINT "Last night I was having sharp pains in my heart, and I was worried. It happens when I'm feeling out of place and not myself. I felt like I heard a gunshot in my basement." HISTORY OF PRESENT ILLNESS This is the second [facility] admission and approximately the ninth or tenth ever psychiatric admission for this 32-year-old male, who has a history of schizophrenia and who is here on an involuntary Title 25 mcc, which was filed by the emergency room physician due to inability to care for self. The patient has had numerous visits to the emergency room over the past several months where he is complaining of palpitations, and yet his medical workup is always entirely negative. The patient states that he comes to the emergency room because he feels like his heart starts racing when his anxiety increases. The patient describes complex paranoid delusions which have been present for at least the past several months. The patient's mother agrees that he has had a lot of paranoia over the last several months. The patient talks about noticing things in his apartment that make him think that someone is stalking him. He said a bottle of aspirin was missing from his drawer, and he thought someone broke in and stole it. He says, "Someone's been watching me or has been in my house." He said that he plays a video game called [employer], and he believes somebody hacked in and froze his tank on the game. He thinks that he might be a target of someone from [employer], which he says is some sort of international organized crime. He noticed a tile that was moved on the floor of his apartment. He said, 'Maybe someone put some poison on it. I've had suspicions that it might be the people living downstairs." He says he is now afraid to use his washing machine because the poison that was on the tile might be in the washing machine. He said that he noticed the internet network in his building had the FBI on it, and he is afraid that perhaps the people who live downstairs are FBI agents. He thinks that they are FBI agents because he says they never leave the apartment. The patient denies auditory hallucinations. The patient does acknowledge fleeting suicidal ideation at times. He said, "I have my moments where I get tired of dealing with all of this." He did have some suicidal ideation a couple of days ago, but has none presently. The patient states that he has been compliant with his Seroquel 200 mg at bedtime, and his mother thinks that he takes it most of the time, although she is not sure. PAST MENTAL HEALTH HISTORY The patient says as a youngster he was diagnosed with ADHD and bipolar. In his 20s, he has had, he said, seven or eight psychiatric hospitalizations. His mother thinks it is more like eight or nine hospitalizations. He recalls being at [facility] in [place], at [facility] in the [facility], at [facility], at two or three others in the [facility], and here at [facility] in February 2018. He says his diagnosis is schizophrenia. He has tried Abilify, Risperdal, Seroquel, and Zyprexa in the past. He says he is currently taking quetiapine 200 mg at bedtime. He says he has been referred to [facility] and has been over there a couple of times, but has not followed up in a meaningful way. He says there is a doctor in [place] who orders his Seroquel. He denies any history of suicide attempt ever. HOSPITAL COURSE Pt was admitted to [facility] and initially placed on aggression precautions due to level of psychosis. He was calm and cooperative throughout his stay, and aggression precautions were later DC'd. It took several days to convince him that he was not on enough antipsychotic medication. He was very guarded and although he acknowledged his diagnosis as schizophrenia, he never entirely admitted that his paranoid thoughts were delusional. He did make some progress with insight, in that he said maybe his heart palpitations (somatic delusion) were actually due to anxiety, not really his heart. He did eventually agree to switch to latuda, which we added for a few days, but this was then switched to abilify which will be more affordable for him as an outpatient. His seroquel was continued to allow time to adjust to new neuroleptic before tapering the old one. In addition, he was resistant to DC'ing it just yet because it helps him sleep. He did agree to stipulate to an outpatient commitment and the paperwork was drawn up by his criminal attorney in conjunction with the [employer] office. He met with Ryan from [facility] and he will follow up there for medications and therapy. By time of discharge he was much less guarded, and showing some insight into the fact that the medication can help his paranoia decrease. Physical Exam Latest Vital Signs Vital Signs 05/13/18 05/17/18 22:10 04:35 Temp 98.2 Pulse 61 Resp 15 B/P (MAP) 109/71 (84) Pulse Ox 93 O2 Delivery Room Air O2 Flow Rate 97.0 Mental Status Exam General Appearance: Casual, Well Groomed; No Good Eye Contact; Cooperative, Polite, Good Interaction Speech: Clear, Spontaneous, Normal Rate, Normal Rhythm, Normal Volume, Normal Tone Mood: Euthymic Affect: Full and Appropriate, Calm Thought Process: No Organized, No Logical, No Goal Directed, No Loose Associations, No Flight of Ideas; Other (circumstantial) Thought Content: No Suicidal Ideation, No Homicidal Ideation; Delusions (paranoid delusions but far less intense than on admission); No Auditory Halllucinations, No Visual Hallucinations, No Thought Broadcasting, No Ideas of Reference, No Obsessions, No Compulsions, No Other Sensorium: Clear Cognition: Alert & Oriented-Person, Alert & Oriented-Place, Alert & Oriented- Time Memory: Immediate, Recent, Remote Intelligence: Average Insight Judgment: Poor, Fair Departure Item Value Date Time Hemoglobin A1c 5.5 % 05/16/18 0630 Triglycerides Level 157 mg/dl 05/16/18 0630 Cholesterol Level 163 mg/dl 05/16/18 0630 LDL Cholesterol 90 mg/dl 05/16/18 0630 VLDL Cholesterol 31 mg/dl 05/16/18 0630 HDL Cholesterol 42 mg/dl 05/16/18 0630 Percent HDL Cholesterol 25.0 % 05/16/18 0630 Cholesterol Ratio (LDL/HDL) 2.14 05/16/18 0630 Cholesterol/HDL Ratio 3.9 05/16/18 0630 White Blood Count 8.7 k/uL 05/06/18 2110 Red Blood Count 5.53 M/uL 05/06/182109 Hemoglobin 17.0 g/dL 05/06/182109 Hematocrit 49.1 % 05/06/182109 Mean Corpuscular Volume 88.9 fL 05/06/182109 Mean Corpuscular Hemoglobin 30.7 pg 05/06/182109 Mean Corpuscular Hemoglobin Concent 34.5 g/dL 05/06/182109 Red Cell Distribution Width 13.3 % 05/06/182109 Platelet Count 184 K/uL 05/06/182109 Sodium Level 140 mmol/L 05/06/182109 Potassium Level 3.7 mmol/L 05/06/182109 Chloride Level 112 mmol/L H 05/06/182109 Carbon Dioxide Level 24 mmol/L 05/06/182109 Blood Urea Nitrogen 8 mg/dl L 05/06/182109 Creatinine 1.00 mg/dl 05/06/182109 Glomerular Filtration Rate Calc > 60.0 05/06/182109 Whole Blood Glucose 98 mg/DL 02/21/18 0844 Random Glucose 94 mg/dl 05/06/182109 Hemoglobin A1c 5.5 % 05/16/18 0630 Calcium Level 9.4 mg/dl 05/06/182109 Magnesium Level 2.1 mg/dl 02/09/182007 Total Bilirubin 0.5 mg/dl 05/06/182109 Aspartate Amino Transf (AST/SGOT) 16 U/L 05/06/182109 Alanine Aminotransferase (ALT/SGPT) 32 U/L 05/06/182109 Alkaline Phosphatase 68 U/L 05/06/182109 Thyroid Stimulating Hormone (TSH) 1.56 uIU/ml 05/06/182109 Urine Barbiturates Screen Negative 05/06/182151 Ur Tricyclic Antidepressants Screen Negative 05/06/182151 Urine Phencyclidine Screen Negative 05/06/182151 Urine Amphetamines Screen Negative 05/06/182151 Urine Benzodiazepines Screen Negative 05/06/182151 Urine Cocaine Screen Negative 05/06/182151 Urine Cannabinoids Screen Negative 05/06/182151 Serum Alcohol < 10 mg/dl 03/03/18 0149 Condition: Improved Discharge to: Home Discharge Instructions Home Meds Reported Medications Nicotine Polacrilex (NICOTINE GUM) 2 Mg Gum, 2 MG BC 1-2 hours PRN for NICOTINE REPLACEMENT, GUM 05/17/18 Aripiprazole (ABILIFY) 10 Mg Tablet, 20 MG PO QHS, #30 TAB 2 Refills 05/17/18 Quetiapine Fumarate (SEROQUEL) 100 Mg Tablet, 200 MG PO QHS, #30 2 Refills TAKE TWO TABLETS (200 MG) AT BEDTIME. 02/09/18 Discontinued Scripts Hydroxyzine Hcl (HYDROXYZINE HCL) 25 Mg Tablet, 25 MG PO Q6H PRN for ANXIETY, #30 TAB Prov:ANALIA GUEVARA [employer] MASTER MECHANIC 03/10/18 Multpiple Antipsychotics Used: Yes Reason For >1 Antipsychotic: need to initiate abilify before weaning seroquel Diet: Regular Activity: As Tolerated Special Instructions: Follow up with medical provider for medication management. Follow up with [facility] for therapy management. Problem Qualifiers (1) Schizophrenia: Schizophrenia type: paranoid schizophrenia Qualified Codes: F20.0 - Paranoid schizophrenia KAYLYN MOHAN MD May 17, 2018 15:47
== END 2018-05-17 10:36 | disposition home or self-care (01) | DRG 885 ==
LOC: BHS 22:32
PROVIDERS: ADMIT Nurse Practitioner Psychiatric/Mental Health; ATTEND Nurse Practitioner Psychiatric/Mental Health
DX: F20.0 Paranoid schizophrenia (principal); F41.9 Anxiety disorder, unspecified; Z62.810 Personal history of physical and sexual abuse in childhood; F17.210 Nicotine dependence, cigarettes, uncomplicated; Z81.8 Family history of other mental and behavioral disorders
CPT/HCPCS: 36415; 82465; 83036; 83718; 84478

== ENCOUNTER 2018-05-25 17:11 | Emergency (ER) | payer SELFPAY ==
[~2018-05-25 17:11] MED LIST changes: +ARIP10TA4 PO; +NICO-306 BC
[2018-05-25 17:27] VITALS: BP 130/92
--- NOTE | 2018-05-25 17:42 | ER Report ---
History and Physical Time Seen By MD: 17:30 Hx. of Stated Complaint: PATIENT REPORTS NOT FEELING SAFE AT HOME. FEELS LIKE HE WANTS TO HURT HIMSELF AND IS WORRIED THAT HE IS ALONE AT HOME. HPI/ROS CHIEF COMPLAINT: Suicidal ideation, paranoia HISTORY OF PRESENT ILLNESS: 32-year-old male patient presents to emergency room with complaint of suicidal ideation paranoia. Patient has recently been on the behavioral health unit for extended stay. He was discharged home with strict follow-up with outpatient mental health care as well as medication management. He states that he has been taking his medication as prescribed, he states that he has been going to counseling, however he states he does not feel this been affected. He denies having any nausea, vomiting or diarrhea. Patient states that he has been hearing voices in his apartment, saying things like "Should we let him live?", "rat poison". He states that he is feeling unsafe at home. When asked patient states he would like to be admitted to behavioral health again. REVIEW OF SYSTEMS: Respiratory: No cough, no dyspnea. Cardiovascular: No chest pain, no palpitations. Gastrointestinal: No vomiting, no abdominal pain. Musculoskeletal: No back pain. Allergies: Coded Allergies: No Known Drug Allergies (Unverified , 05/06/18) Home Meds Reported Medications Nicotine Polacrilex (NICOTINE GUM) 2 Mg Gum, 2 MG BC 1-2 hours PRN for NICOTINE REPLACEMENT, GUM 05/17/18 Aripiprazole (ABILIFY) 10 Mg Tablet, 20 MG PO QHS, #30 TAB 2 Refills 05/17/18 Quetiapine Fumarate (SEROQUEL) 100 Mg Tablet, 200 MG PO QHS, #30 2 Refills TAKE TWO TABLETS (200 MG) AT BEDTIME. 02/09/18 Past Medical/Surgical History Patient does have a past medical history of alcohol use, paranoid schizophrenia. Patient denies surgical history. Reviewed Nurses Notes: Yes Hx Smoking: Yes Smoking Status: Current: Every Day Smoker Exposure to Second Hand Smoke?: No Hx Substance Use Disorder: No Hx Alcohol Use: Yes Constitutional Vital Sign - Last 24 Hours 05/25/18 17:27 Temp 98.2 Pulse 101 Resp 18 B/P (MAP) 130/92 Pulse Ox 95 O2 Delivery Room Air Physical Exam General Appearance: The patient is alert, has no immediate need for airway protection and no current signs of toxicity. Respiratory: Chest is non tender, lungs are clear to auscultation. Cardiac: regular rate and rhythm Gastrointestinal: Abdomen is soft and non tender, no masses, bowel sounds normal. Musculoskeletal: Neck: Neck is supple and non tender. Extremities have full range of motion and are non tender. Skin: No rashes or lesions. DIFFERENTIAL DIAGNOSIS: After history and physical exam differential diagnosis was considered for paranoia, suicidal ideation, schizophrenia. Medical Decision Making Data Points Result Diagram: 05/25/18175505/25/181755 Laboratory Hematology Test 05/25/18 17:56 05/25/18 18:47 Red Blood Count 5.89 M/uL (4.00-5.60) Mean Corpuscular Volume 88.3 fL (80.0-96.0) Mean Corpuscular Hemoglobin 30.6 pg (26.0-33.0) Mean Corpuscular Hemoglobin Concent 34.7 g/dL (32.0-36.0) Red Cell Distribution Width 13.9 % (11.5-14.5) Mean Platelet Volume 10.3 fL (7.2-11.1) Neutrophils (%) (Auto) 75.8 % (39.4-72.5) Lymphocytes (%) (Auto) 16.1 % (17.6-49.6) Monocytes (%) (Auto) 6.6 % (4.1-12.4) Eosinophils (%) (Auto) 1.1 % (0.4-6.7) Basophils (%) (Auto) 0.4 % (0.3-1.4) Nucleated RBC Relative Count (auto) 0.1 /100WBC Neutrophils # (Auto) 9.5 K/uL (2.0-7.4) Lymphocytes # (Auto) 2.0 K/uL (1.3-3.6) Monocytes # (Auto) 0.8 K/uL (0.3-1.0) Eosinophils # (Auto) 0.1 K/uL (0.0-0.5) Basophils # (Auto) 0.1 K/uL (0.0-0.1) Nucleated RBC Absolute Count (auto) 0.01 K/uL Sodium Level 139 mmol/L (137-145) Potassium Level 3.7 mmol/L (3.5-5.0) Chloride Level 103 mmol/L (98-107) Carbon Dioxide Level 25 mmol/L (22-30) Blood Urea Nitrogen 12 mg/dl (9-21) Creatinine 1.00 mg/dl (0.66-1.25) Glomerular Filtration Rate Calc > 60.0 Random Glucose 98 mg/dl (75-110) Calcium Level 9.7 mg/dl (8.4-10.2) Magnesium Level 2.0 mg/dl (1.7-2.2) Total Bilirubin 0.5 mg/dl (0.2-1.3) Aspartate Amino Transf (AST/SGOT) 22 U/L (0-35) Alanine Aminotransferase (ALT/SGPT) 44 U/L (0-56) Alkaline Phosphatase 73 U/L (0-126) Total Protein 7.9 g/dl (6.3-8.2) Albumin 4.8 g/dl (3.5-5.0) Salicylates Level < 10 mg/L Salicylate Last Dose Date unk Acetaminophen Level < 10 ug/ml Serum Alcohol < 10 mg/dl Urine Color Yellow Urine Clarity Clear Urine pH 5.0 pH (4.8-9.5) Urine Specific [place] 1.028 Urine Protein Negative mg/dL (NEGATIVE) Urine Glucose (UA) Negative mg/dL (NEGATIVE) Urine Ketones 80 mg/dL (NEGATIVE) Urine Blood Negative (NEGATIVE) Urine Nitrite Negative (NEGATIVE) Urine Bilirubin Negative (NEGATIVE) Urine Urobilinogen 2.0 mg/dL (0.2-1.9) Urine Leukocyte Esterase Negative (NEGATIVE) Urine RBC <1 /HPF (0-2/HPF) Urine WBC 1 /HPF (0-5/HPF) Urine Squamous Epithelial Cells None /LPF (</=FEW) Urine Bacteria Negative /HPF (NONE-FEW) Urine Mucus Few /HPF (NONE-FEW) Urine Opiates Screen Negative Urine Barbiturates Screen Negative Ur Tricyclic Antidepressants Screen Negative Urine Phencyclidine Screen Negative Urine Amphetamines Screen Negative Urine Benzodiazepines Screen Negative Urine Cocaine Screen Negative Urine Cannabinoids Screen Negative Chemistry Test 05/25/18 17:56 05/25/18 18:47 White Blood Count 12.5 k/uL (4.5-11.0) Red Blood Count 5.89 M/uL (4.00-5.60) Hemoglobin 18.0 g/dL (14.0-18.0) Hematocrit 52.0 % (42.0-52.0) Mean Corpuscular Volume 88.3 fL (80.0-96.0) Mean Corpuscular Hemoglobin 30.6 pg (26.0-33.0) Mean Corpuscular Hemoglobin Concent 34.7 g/dL (32.0-36.0) Red Cell Distribution Width 13.9 % (11.5-14.5) Platelet Count 217 K/uL (150-450) Mean Platelet Volume 10.3 fL (7.2-11.1) Neutrophils (%) (Auto) 75.8 % (39.4-72.5) Lymphocytes (%) (Auto) 16.1 % (17.6-49.6) Monocytes (%) (Auto) 6.6 % (4.1-12.4) Eosinophils (%) (Auto) 1.1 % (0.4-6.7) Basophils (%) (Auto) 0.4 % (0.3-1.4) Nucleated RBC Relative Count (auto) 0.1 /100WBC Neutrophils # (Auto) 9.5 K/uL (2.0-7.4) Lymphocytes # (Auto) 2.0 K/uL (1.3-3.6) Monocytes # (Auto) 0.8 K/uL (0.3-1.0) Eosinophils # (Auto) 0.1 K/uL (0.0-0.5) Basophils # (Auto) 0.1 K/uL (0.0-0.1) Nucleated RBC Absolute Count (auto) 0.01 K/uL Glomerular Filtration Rate Calc > 60.0 Calcium Level 9.7 mg/dl (8.4-10.2) Magnesium Level 2.0 mg/dl (1.7-2.2) Total Bilirubin 0.5 mg/dl (0.2-1.3) Aspartate Amino Transf (AST/SGOT) 22 U/L (0-35) Alanine Aminotransferase (ALT/SGPT) 44 U/L (0-56) Alkaline Phosphatase 73 U/L (0-126) Total Protein 7.9 g/dl (6.3-8.2) Albumin 4.8 g/dl (3.5-5.0) Salicylates Level < 10 mg/L Salicylate Last Dose Date unk Acetaminophen Level < 10 ug/ml Serum Alcohol < 10 mg/dl Urine Color Yellow Urine Clarity Clear Urine pH 5.0 pH (4.8-9.5) Urine Specific [place] 1.028 Urine Protein Negative mg/dL (NEGATIVE) Urine Glucose (UA) Negative mg/dL (NEGATIVE) Urine Ketones 80 mg/dL (NEGATIVE) Urine Blood Negative (NEGATIVE) Urine Nitrite Negative (NEGATIVE) Urine Bilirubin Negative (NEGATIVE) Urine Urobilinogen 2.0 mg/dL (0.2-1.9) Urine Leukocyte Esterase Negative (NEGATIVE) Urine RBC <1 /HPF (0-2/HPF) Urine WBC 1 /HPF (0-5/HPF) Urine Squamous Epithelial Cells None /LPF (</=FEW) Urine Bacteria Negative /HPF (NONE-FEW) Urine Mucus Few /HPF (NONE-FEW) Urine Opiates Screen Negative Urine Barbiturates Screen Negative Ur Tricyclic Antidepressants Screen Negative Urine Phencyclidine Screen Negative Urine Amphetamines Screen Negative Urine Benzodiazepines Screen Negative Urine Cocaine Screen Negative Urine Cannabinoids Screen Negative Toxicology Test 05/25/18 17:56 05/25/18 18:47 Salicylates Level < 10 mg/L Salicylate Last Dose Date unk Acetaminophen Level < 10 ug/ml Serum Alcohol < 10 mg/dl Urine Opiates Screen Negative Urine Barbiturates Screen Negative Ur Tricyclic Antidepressants Screen Negative Urine Phencyclidine Screen Negative Urine Amphetamines Screen Negative Urine Benzodiazepines Screen Negative Urine Cocaine Screen Negative Urine Cannabinoids Screen Negative Urinalysis Test 05/25/18 18:47 Urine Color Yellow Urine Clarity Clear Urine pH 5.0 pH (4.8-9.5) Urine Specific [place] 1.028 Urine Protein Negative mg/dL (NEGATIVE) Urine Glucose (UA) Negative mg/dL (NEGATIVE) Urine Ketones 80 mg/dL (NEGATIVE) Urine Blood Negative (NEGATIVE) Urine Nitrite Negative (NEGATIVE) Urine Bilirubin Negative (NEGATIVE) Urine Urobilinogen 2.0 mg/dL (0.2-1.9) Urine Leukocyte Esterase Negative (NEGATIVE) Urine RBC <1 /HPF (0-2/HPF) Urine WBC 1 /HPF (0-5/HPF) Urine Squamous Epithelial Cells None /LPF (</=FEW) Urine Bacteria Negative /HPF (NONE-FEW) Urine Mucus Few /HPF (NONE-FEW) ED Course/Re-evaluation ED Course Patient was admitted to an exam room, history and physical were obtained. Differential diagnoses were considered. On examination lungs are clear, heart is regular, abdomen is soft and nontender. Lab work for a behavioral health admission were done. Patient did request some food and did receive that. I discussed case with Paolo ngo, nurse practitioner, who agreed to accept the patient for admission. I discussed this with the patient who verbalized understanding and agreement with plan. Decision to Disposition Date: May 25, 2018 Decision to Disposition Time: 19:27 Depart Departure Latest Vital Signs Vital Signs Date Time Temp Pulse Resp B/P (MAP) Pulse Ox O2 Delivery O2 Flow Rate FiO2 05/25/18 17:27 98.2 101 18 130/92 95 Room Air Impression: Primary Impression: Suicidal ideation Additional Impression: Paranoid schizophrenia Condition: Condition Unchanged Disposition: XFER TO [facility] Problem Qualifiers ANALIA GUEVARA May 25, 2018 17:42
[2018-05-25 18:07] LABS: PLATELET COUNT, AUTOMATED 217 K/uL (150-450)
[2018-05-25] MEDS ORDERED: IBUPROFEN 600 MG TAB PO ONE (19:40)
[2018-05-26] MEDS ORDERED: ARIP20TA4 PO (08:39)
[2018-05-26] MEDS ORDERED: QUET200T PO (08:39)
[2018-05-26] MEDS ORDERED: CITA-145 PO (08:39)
== END 2018-05-25 19:52 ==
LOC: ER 17:30
DX: F20.0 Paranoid schizophrenia (principal)
CPT/HCPCS: 36415; 80305; 80320; 80329; 81001; 82040; 82247; 82310; 82374; 82435; 82565; 82947; 83735; 84075; 84132; 84155; 84295; 84443; 84450; 84460; 84520; 85025; 99284

== ENCOUNTER 2018-05-25 19:25 | Inpatient (IN) | payer SELFPAY ==
[~2018-05-25] VITALS: Ht 167.6 cm; Wt 72.6 kg
[2018-05-25 01:00] VITALS: BP 109/89
[2018-05-25] MEDS: NICOTINE POLACRILEX 2 MG GUM PO PRN (20:54)
[2018-05-25] MEDS: QUEtiapine FUM 100 MG TAB PO SCH (21:23)
[2018-05-25] MEDS: ARIPiprazole 10 MG TAB PO SCH (21:23)
[2018-05-25 22:37] VITALS: BP 96/61
[2018-05-25] MEDS ORDERED: QUEtiapine FUM 100 MG TAB PO ONE (22:50)
--- NOTE | 2018-05-26 05:47 | NUR ---
Patient has been up and down throughtout the night, starting at approximately 0300, patient up walking sellers with blanket. Denies any need for PRN Seroquel. In pleasant mood at this time. No s/s of distress or discomfort noted.
[2018-05-26 06:28] LABS: PLATELET COUNT, AUTOMATED 191 K/uL (150-450)
[2018-05-26] MEDS: NICOTINE POLACRILEX 2 MG GUM PO PRN (07:34)
[2018-05-26] MEDS: MULTIVITAMINS TAB PO SCH (07:34)
[2018-05-26] MEDS ORDERED: hydrOXYzine PAMOATE 25 MG CAP PO PRN (08:20)
[2018-05-26] MEDS ORDERED: NICOTINE CARTRIDGE 1 EA PO PRN (08:35)
[2018-05-26] MEDS ORDERED: CITA-145 PO (08:39)
[2018-05-26] MEDS ORDERED: QUET200T PO (08:39)
[2018-05-26] MEDS ORDERED: ARIP20TA4 PO (08:39)
[2018-05-26] MEDS: NICOTINE INH SYSTEM 10 MG/INH INH PRN ×4 (09:08→22:09)
[2018-05-26 14:15] VITALS: BP 122/84
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
[2018-05-26] MEDS: IBUPROFEN 600 MG TAB PO PRN (16:10)
[2018-05-26] MEDS: hydrOXYzine PAMOATE 25 MG CAP PO PRN ×2 (16:11→22:17)
[2018-05-26 19:30] VITALS: BP 120/87
[2018-05-26] MEDS: QUEtiapine FUM 100 MG TAB PO SCH (21:00)
[2018-05-26] MEDS: ARIPiprazole 10 MG TAB PO SCH (21:50)
[2018-05-27] MEDS: MULTIVITAMINS TAB PO SCH (08:55)
--- NOTE | 2018-05-27 09:25 | NUR ---
A note was found in another female patients area, who is segregated from the other patients, from this patient. The note had his name and number, and had the female patients name on it. This note was found by the overnight staff. This nurse spoke to this patient about the note, and explained that this in not allowed. He verbalized understanding and apologized.
[2018-05-27] MEDS: hydrOXYzine PAMOATE 25 MG CAP PO PRN ×4 (09:35→21:54)
--- NOTE | 2018-05-27 09:58 | BHS Progress Note ---
[facility] - Subjective Progress Notes Subjective "I think I've been really confused but I feel 10 percent better. I have a hard time concentrating on tv. I slept really well last night with the hydroxyzine." Suicidal Ideation: None Homicidal Ideation: None [facility] - Objective Physical Exam Vital Signs Vital Signs Date Time Temp Pulse Resp B/P (MAP) Pulse Ox O2 Delivery O2 Flow Rate FiO2 05/26/18 19:30 97.6 85 120/87 (98) 94 Room Air 05/26/18 14:15 16 Muscle Strength and Tone: WNL Gait and Station: Steady [facility] Medications Reviewed: Side Effects, Benefits of Medication, Risks Allergies Reviewed: Yes Mental Status Exam General Appearance: Casual, Well Groomed, Good Eye Contact, Cooperative, Polite, Good Interaction Speech: Clear, Spontaneous, Normal Rate, Normal Rhythm, Normal Volume, Normal Tone Mood: Dysthmic/Depressed Affect: No Tearful; Anxious Thought Process: Organized, Logical, Goal Directed, Loose Associations Thought Content: No Suicidal Ideation, No Homicidal Ideation; Delusions, Auditory Halllucinations; No Visual Hallucinations Sensorium: Clear Cognition: Alert & Oriented-Person, Alert & Oriented-Place, Alert & Oriented- Time, [id number]-[id number]-[id number] Memory: Immediate, Recent, Remote Intelligence: Average Insight Judgment: Fair Result Diagram: 05/26/1861705/26/18617 [facility] Assessment and Plan [id number] Encounter Date: May 27, 2018 [id number] Encounter Time: 09:00 [facility] Plan: Admit to Unit, Necessary Precautions, Individual/Group Therapy, Admin/Titrate Meds, Educate Patient Tobacco Medications: Started Multpiple Antipsychotics Used: Yes Reason For >1 Antipsychotic: Client had continued on seroquel for sleep at night due to sedating properties. AIMS zero Problems: (1) Paranoid schizophrenia Status: Chronic MYRIAM GILL NP May 27, 2018 09:58
[2018-05-27] MEDS: NICOTINE INH SYSTEM 10 MG/INH INH PRN ×3 (10:12→18:22)
[2018-05-27] MEDS: IBUPROFEN 600 MG TAB PO PRN ×2 (10:45→16:15)
[2018-05-27 13:00] VITALS: BP 122/82
[2018-05-27] MEDS: QUEtiapine FUM 100 MG TAB PO SCH (19:37)
[2018-05-27] MEDS: ARIPiprazole 10 MG TAB PO SCH (19:37)
[2018-05-28 03:43] VITALS: BP 82/65
[2018-05-28] MEDS: MULTIVITAMINS TAB PO SCH (09:12)
[2018-05-28] MEDS: NICOTINE INH SYSTEM 10 MG/INH INH PRN ×3 (09:12→21:15)
[2018-05-28] MEDS: hydrOXYzine PAMOATE 25 MG CAP PO PRN ×2 (13:22→21:13)
[2018-05-28 14:55] VITALS: BP 102/64
[2018-05-28] MEDS ORDERED: HYDR25CA83 PO (16:18)
[2018-05-28] MEDS: LORazepam 1 MG TAB PO PRN ×2 (16:36→21:13)
--- NOTE | 2018-05-28 17:12 | BHS Progress Note ---
S - Subjective Progress Notes Subjective Abilify 20 mgs Seroquel 200 mgs at hs Vistaril prn agitation I met with Izaiah this morning with treatment team. I also called his outpatient psychiatrist, Dr. Francis Garcia, who sees Izaiah at [facility]. Izaiah's primary complaint continues to be that he finds he has to pace constantly. He denies any hearing voices or feeling afraid of being harmed. His behavior supports this--he is not isolating, seems open with me and staff. He is anxious to go home and motivated to continue outpatient care with [facility]. He tells me that Dr. Garcia told him to continue Seroquel but added Ability 20 mgs and citalopram 20 mgs. We have not started the citalopram since he has been hospitalized. I questioned Izaiah carefully about his complaint of "anxiety." I asked whether it is more emtional (is he worried about things, feeling like bad things are going to happen or that he has to do something) or is it more physical--a feeling of restlessness like he can't tolerate sitting still. He replied that it is a little of both, but mostly the latter. I mentioned that Ability can sometimes cause akathesia and explained what that is. He tells me that this started about the time he started the Abilify. During my conversation with Dr. Garcia, we agreed that it might make sense to begin by reducing the Abilify to 10 mgs while continuing the Seroquel which Izaiah is attached to and likes because it helps him sleep and feel calmer. I mentioed we have not re-started citalopram and he agreed that might not be appropriate at this time. Suicidal Ideation: None Homicidal Ideation: None S - Objective Physical Exam Vital Signs 98.7, 85, 102/64, 93% Muscle Strength and Tone: Other (No signs of dystonia or tremor) Gait and Station: Steady [facility] Medications Reviewed: Side Effects, Benefits of Medication, Risks Allergies Reviewed: Yes Mental Status Exam General Appearance: Casual, Well Groomed, Good Eye Contact, Cooperative, Polite, Good Interaction Speech: Clear, Spontaneous, Normal Rate, Normal Rhythm, Normal Volume, Normal Tone Mood: Euthymic, Other (still has some anxiety. A little worried about his medications.) Affect: Full and Appropriate, Calm; No Tearful; Anxious Thought Process: Organized, Logical, Goal Directed; No Loose Associations, No Flight of Ideas Thought Content: No Suicidal Ideation, No Homicidal Ideation, No Delusions, No Auditory Halllucinations, No Visual Hallucinations Sensorium: Clear Cognition: Alert & Oriented-Person, Alert & Oriented-Place, Alert & Oriented- Time, [id number] Memory: Immediate, Recent, Remote Intelligence: Average Insight Judgment: Good (understands the importance of medications and that they can also cause side effects.) Result Diagram: 05/26/1861705/26/18617 [facility] Assessment and Plan [id number] Encounter Date: May 28, 2018 Eecu-ug-Myse Encounter Time: 11:25 [facility] Plan: Admit to Unit, Necessary Precautions, Individual/Group Therapy, Admin/Titrate Meds, Educate Patient Tobacco Medications: Started Multpiple Antipsychotics Used: Yes Reason For >1 Antipsychotic: Client had continued on seroquel for sleep at night due to sedating properties. AIMS zero Condition 1. Reduce Abilify to 10 mgs. 2. Continue Seroquel 200 mgs at night 3. Add Ativan 1 mg q 4 prn agitation 4. Anticipate release tomorrow with follow-up at [facility] with RASHEEDA Colindres DO May 28, 2018 17:12
[2018-05-28] MEDS ORDERED: ARIPiprazole 10 MG TAB PO SCH (21:00)
[2018-05-28] MEDS: QUEtiapine FUM 100 MG TAB PO SCH (21:13)
--- NOTE | 2018-05-29 06:01 | BHS Progress Note ---
[facility] - Subjective Progress Notes Subjective Psychiatric medications: Abilify 10 mgs at night Seroquel 200 mgs at night Ativan 1 mg prn restlessness Yesterday, Izaiah received the reduced dose of Abilify--10 mgs instead of 20 mgs. I also started some Ativan prn to help with his persistent akathisia. He has done very well with these changes and wants to go home today. Please seen discharge summary for further information Suicidal Ideation: None Homicidal Ideation: None [facility] - Objective Physical Exam Muscle Strength and Tone: Other (No signs of dystonia or tremor) Gait and Station: Steady [facility] Medications Reviewed: Side Effects, Benefits of Medication, Risks Allergies Reviewed: Yes Mental Status Exam General Appearance: Casual, Well Groomed, Good Eye Contact, Cooperative, Polite, Good Interaction Speech: Clear, Spontaneous, Normal Rate, Normal Rhythm, Normal Volume, Normal Tone Mood: Euthymic, Other (still has some anxiety. A little worried about his medications.) Affect: Full and Appropriate, Calm; No Tearful; Anxious Thought Process: Organized, Logical, Goal Directed; No Loose Associations, No Flight of Ideas Thought Content: No Suicidal Ideation, No Homicidal Ideation, No Delusions, No Auditory Halllucinations, No Visual Hallucinations Sensorium: Clear Cognition: Alert & Oriented-Person, Alert & Oriented-Place, Alert & Oriented- Time, [id number]-[id number]-[id number] Memory: Immediate, Recent, Remote Intelligence: Average Insight Judgment: Good (understands the importance of medications and that they can also cause side effects.) Result Diagram: 05/26/1861705/26/18617 [facility] Assessment and Plan [id number] Encounter Date: May 29, 2018 Rnih-[id number] Encounter Time: 08:30 Tobacco Medications: Started Multpiple Antipsychotics Used: Yes Reason For >1 Antipsychotic: Client had continued on seroquel for sleep at night due to sedating properties. Problems: (1) Neuroleptic-induced acute akathisia Status: Acute (2) Schizophrenia Status: Chronic Condition Izaiah is in good condition for discharge today. RASHEEDA TINEO DO May 29, 2018 06:01
[2018-05-29 06:17] VITALS: BP 104/65
[2018-05-29] MEDS: MULTIVITAMINS TAB PO SCH (08:34)
[2018-05-29] MEDS ORDERED: LOR1 PO (09:28)
[2018-05-29] MEDS ORDERED: ARIP10TA5 PO (09:30)
--- NOTE | 2018-05-30 03:52 | DISCHARGE SUMMARY ---
DATE OF ADMISSION: May 25, 2018 DATE OF DISCHARGE: May 29, 2018 TYPE OF ADMISSION Voluntary. TYPE OF DISCHARGE Routine. DISCHARGE DIAGNOSES 1. Schizophrenia. 2. Neuroleptic-induced acute akathisia. REASON FOR ADMISSION Mr. Fitch presented to the emergency room complaining of feeling "like everything changed in my head. It started when I got home. It's been pretty frustrating. I've been worried and scared. I don't know if I can recover." PHYSICAL EXAMINATION Please see emergency room notes for physical examination. Vital signs on admission were 97.9, pulse 96, blood pressure 109/89, pulse ox 91% on room air. LABORATORY STUDIES CBC: WBC was elevated at 12.5, RBCs at 5.89, neutrophil percent elevated at 75.8. Chemistry panel was within normal limits. Urine screen within normal limits with the exception of a high level of ketones. Toxicology was entirely negative. MENTAL STATUS EXAMINATION I met with the patient on the morning of his discharge. At this time, he is pleasant, well groomed, and in good spirits. He is denying any side effects of his medication. He is feeling much calmer than on admission. He is not experiencing any auditory or visual hallucinations. His speech is coherent and logical. He also is exhibiting no signs of extrapyramidal side effects or of akathisia. Denies suicidal or homicidal thoughts. TREATMENT I assumed Mr. Fitch's care on the morning of 05/28/2018. At this time, we had a detailed conversation about his primary complaint that he feels restless. He complained that he seemed to be walking all the time and could not seem to resist the urge to pace. He denied hearing voices or feeling afraid of being harmed. His behavior was not supporting this, as he was not isolating, seemed open with me and the staff. We talked about the source of his restlessness, and I asked whether it was more emotional, as if he is worried about things or feeling like bad things are going to happen, or more physical -- a feeling of restlessness that he could only relieve by moving around. He replied that it is a little of both things, but more the latter. We had a discussion about how Abilify can sometimes cause a side effect called akathisia, and I explained what this is. He said that his problems with restlessness started about the time that he began taking Abilify. With his permission, I contacted his outpatient psychiatrist, Dr. Garcia at [facility]. We agreed to try reducing his Abilify to 10 mg while continuing the 200 mg of Seroquel which Izaiah had been taking at home because it helped him feel calmer. I also mentioned to Dr. Garcia that we did not restart the citalopram that he had just recently started on an outpatient basis. HOSPITAL COURSE After meeting with Izaiah and talking with Dr. Garcia, I reduced Izaiah's Abilify to 10 mg at bedtime while continuing 200 mg of Seroquel. I also added a small amount of lorazepam to help him during the transition to the lower dose of Abilify. He tolerated these medicine changes very well and was anxious to be released to outpatient care on the morning of 05/29/2018. CONDITION AT DISCHARGE During our meeting on the morning of 05/29/2018, Izaiah is well groomed, pleasant, and alert. He is no longer feeling the sense of restlessness that he experienced earlier, or a compulsion to walk. He is calm, with no signs of tremor or cogwheeling. He is also denying any psychotic symptoms at this time, including auditory or visual hallucinations or fears about being harmed by anyone. He denies any suicidal or homicidal thoughts. His thinking is entirely coherent and rational, and he shows good insight into his need to continue medication and continue working with his treatment providers to remain improved. DISPOSITION Mr. Fitch was released for outpatient followup through [facility]. He has a therapist here in [place] that he will see next week, and he will also follow up with Dr. Garcia in [place] early next week. MEDICATIONS AT DISCHARGE 1. Abilify 10 mg p.o. daily. 2. Seroquel 200 mg at bedtime daily. 3. Lorazepam 1 mg up to three times daily as needed for anxiety for one week. I cautioned Izaiah about driving an automobile or dangerous equipment while taking the lorazepam. He assures me that he will not, and his mother is going to take him to his appointment to see Dr. Garcia in [place]. He understands that he can call the crisis line if needed at any time. [facility]
== END 2018-05-29 10:09 | disposition home or self-care (01) | DRG 880 ==
LOC: BHS 19:25
PROVIDERS: ADMIT Nurse Practitioner Psychiatric/Mental Health; ATTEND Nurse Practitioner Psychiatric/Mental Health
DX: R45.851 Suicidal ideations (principal); F20.0 Paranoid schizophrenia; G25.71 Drug induced akathisia; Z62.810 Personal history of physical and sexual abuse in childhood
CPT/HCPCS: 36415; 82040; 82247; 82310; 82374; 82435; 82565; 82947; 84075; 84132; 84155; 84295; 84450; 84460; 84520; 85025; Q0177